=== PATIENT | female | born 1995 | race African-American/Black ===

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

== ENCOUNTER 2017-05-15 08:02 | Emergency (ER) | payer MEDICAID ==
[~2017-05-15] VITALS: Ht 160 cm; Wt 68.0 kg
[~2017-05-15 08:02] MED LIST changes: +PRD10T PO; +SULF1TAB35 PO
--- OUTSIDE RECORDS SUMMARY | 2017-05-15 08:09 | XMS REPORT ---
Author Author HYUN SOLIS [facility] Address [address] [place] [address] Care Team Providers Care Yarn Comber Name Role Phone HYUN SOLIS Unavailable PROBLEMS Type Condition ICD9-CM Code VFN05-AC Code Onset Dates Condition Status SNOMED Code Problem Acute non intractable tension-type headache G44.209 Active 565231344 Problem Encounter for initial prescription of injectable contraceptive Z30.013 Active 154563822 Problem Bipolar disorder, unspecified 296.80 Active 40238638 Problem ODD (oppositional defiant disorder) F91.3 Active 21484166 Problem Attention deficit disorder with hyperactivity F90.9 Active 997486365 ALLERGIES No Known Allergies SOCIAL HISTORY No smoking Hx information available PLAN OF CARE VITAL SIGNS MEDICATIONS No Known Medications RESULTS Name Result Date Reference Range TEST, URINE (IN HOUSE) 2016-06-17 RESULTS NEGATIVE Lot # [id number] Control + Exp date 2017-10-18 PROCEDURES Procedure Date Ordered Related Diagnosis Body Site URINE TEST Jun 17, 2016 DEPO PROVERA (150 MG/ML) Jun 17, 2016 THER/PROPH/DIAG INJ, SC/IM Jun 17, 2016 IMMUNIZATIONS Vaccine Route Administration Date Status DEPO PROVERA (150 MG/ML) IM Intramuscular Jun 17, 2016 Administered
--- OUTSIDE RECORDS SUMMARY | 2017-05-15 08:09 | XMS REPORT ---
Author Author HYUN SOLIS [facility] Address [address] [place] [address] Care Team Providers Care Control Clerk Auditing Name Role Phone HYUN SOLIS Unavailable PROBLEMS Type Condition ICD9-CM Code YBC54-PR Code Onset Dates Condition Status SNOMED Code Problem Infection of right ear H66.91 Active 3168157732074651 Problem Acute non intractable tension-type headache G44.209 Active 748825165 Problem Attention deficit disorder with hyperactivity F90.9 Active 752259847 Problem Bipolar disorder, unspecified 296.80 Active 60233510 Problem Encounter for initial prescription of injectable contraceptive Z30.013 Active 357734034 Problem ODD (oppositional defiant disorder) F91.3 Active 39747310 ALLERGIES No Information SOCIAL HISTORY Never Assessed PLAN OF CARE VITAL SIGNS MEDICATIONS No Known Medications RESULTS No Results PROCEDURES No Known procedures IMMUNIZATIONS No Known Immunizations MEDICAL (GENERAL) HISTORY Type Description Date Medical History attention deficit hyperactivity disorder Medical History bicuspid aortic valve Medical History schizophrenia Medical History dysmenorrhea
--- OUTSIDE RECORDS SUMMARY | 2017-05-15 08:09 | XMS REPORT ---
Author Author HYUN SOLIS [facility] Address [address] [place] [address] Care Team Providers Care Criminal Court Judge Name Role Phone HYUN SOLIS Unavailable PROBLEMS Type Condition ICD9-CM Code VSY22-PD Code Onset Dates Condition Status SNOMED Code Problem Acute non intractable tension-type headache G44.209 Active 969399967 Problem Encounter for initial prescription of injectable contraceptive Z30.013 Active 703282885 Problem Bipolar disorder, unspecified 296.80 Active 90082895 Problem Attention deficit disorder with hyperactivity F90.9 Active 192624639 Problem ODD (oppositional defiant disorder) F91.3 Active 99704595 ALLERGIES Substance Reaction Event Type Date Status Penicillin V Potassium Unknown Drug Allergy Apr, Active SOCIAL HISTORY No smoking Hx information available PLAN OF CARE Activity Details Follow Up 6 Months Reason:WWE VITAL SIGNS Height 63.4 in 2016-04-20 Weight 126.0 lbs 2016-04-20 Temperature 98.1 degrees Fahrenheit 2016-04-20 Heart Rate 78 bpm 2016-04-20 Respiratory Rate 20 2016-04-20 BMI 22.04 kg/m2 2016-04-20 Blood pressure systolic 118 mmHg 2016-04-20 Blood pressure diastolic 78 mmHg 2016-04-20 MEDICATIONS Medication Instructions Dosage Frequency Start Date End Date Duration Status Depo-Provera 150 MG/ML 1 ml Active RESULTS No Results PROCEDURES Procedure Date Ordered Related Diagnosis Body Site Office Visit, Est Pt., Level 4 Apr 20, 2016 IMMUNIZATIONS No Known Immunizations
--- OUTSIDE RECORDS SUMMARY | 2017-05-15 08:10 | XMS REPORT ---
Author Author OMAYRA HIGUERA Organization [facility] Address [address] [place] [address] Care Team Providers Care Bathing Suit Maker Name Role Phone OMAYRA HIGUERA Unavailable PROBLEMS Type Condition ICD9-CM Code KCW86-WV Code Onset Dates Condition Status SNOMED Code Problem Acute non intractable tension-type headache G44.209 Active 772404792 Problem Encounter for initial prescription of injectable contraceptive Z30.013 Active 150082425 Problem Bipolar disorder, unspecified 296.80 Active 44379315 Problem ODD (oppositional defiant disorder) F91.3 Active 81938631 Problem Attention deficit disorder with hyperactivity F90.9 Active 895457375 ALLERGIES Substance Reaction Event Type Date Status Penicillin V Potassium Unknown Drug Allergy Jul, Active SOCIAL HISTORY Never Assessed PLAN OF CARE Activity Details Follow Up prn Reason: VITAL SIGNS Height 63.4 in 2016-08-07 Weight 130.2 lbs 2016-08-07 Temperature 101.3 degrees Fahrenheit 2016-08-07 Heart Rate 88 bpm 2016-08-07 Respiratory Rate 18 2016-08-07 BMI 22.77 kg/m2 2016-08-07 Blood pressure systolic 124 mmHg 2016-08-07 Blood pressure diastolic 76 mmHg 2016-08-07 MEDICATIONS Medication Instructions Dosage Frequency Start Date End Date Duration Status Azithromycin 250 MG Orally Once a day 2 tablets on the first day, then 1 tablet daily for 4 days 24h Jul, Jul, 5 day(s) Active Depo-Provera 150 MG/ML 1 ml Active RESULTS Name Result Date Reference Range STREP A (IN HOUSE) 2016-08-07 STREP A positive Control + Lot # [id number] Exp date feb 05 PROCEDURES Procedure Date Ordered Result Body Site STREP A ASSAY W/OPTIC August 07, 2016 IMMUNIZATIONS No Known Immunizations MEDICAL (GENERAL) HISTORY Type Description Date Medical History attention deficit hyperactivity disorder Medical History bicuspid aortic valve Medical History schizophrenia Medical History dysmenorrhea
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
--- OUTSIDE RECORDS SUMMARY | 2017-05-15 08:10 | XMS REPORT ---
Author Author HYUN SOLIS [facility] Address [address] [place] [address] Care Team Providers Care Drilling Contractor Name Role Phone HYUN SOLIS Unavailable PROBLEMS Type Condition ICD9-CM Code QJC75-AE Code Onset Dates Condition Status SNOMED Code Problem Infection of right ear H66.91 Active 0142652350529148 Problem Acute non intractable tension-type headache G44.209 Active 789105339 Problem Attention deficit disorder with hyperactivity F90.9 Active 248055844 Problem Bipolar disorder, unspecified 296.80 Active 68031775 Problem Encounter for initial prescription of injectable contraceptive Z30.013 Active 544485516 Problem ODD (oppositional defiant disorder) F91.3 Active 59215502 ALLERGIES Substance Reaction Event Type Date Status Penicillin V Potassium Unknown Drug Allergy September, Active SOCIAL HISTORY Never Assessed PLAN OF CARE Activity Details Follow Up urology consult Reason: Pending Test UA LONG DIP (IN HOUSE) VITAL SIGNS Height 63.4 in 2016-10-05 Weight 137.2 lbs 2016-10-05 Temperature 98.4 degrees Fahrenheit 2016-10-05 Heart Rate 80 bpm 2016-10-05 Respiratory Rate 18 2016-10-05 BMI 24.00 kg/m2 2016-10-05 Blood pressure systolic 112 mmHg 2016-10-05 Blood pressure diastolic 77 mmHg 2016-10-05 MEDICATIONS Medication Instructions Dosage Frequency Start Date End Date Duration Status Depo-Provera 150 MG/ML 1 ml Active RESULTS No Results PROCEDURES Procedure Date Ordered Result Body Site URINALYSIS, AUTO, W/O SCOPE October 05, 2016 IMMUNIZATIONS No Known Immunizations MEDICAL (GENERAL) HISTORY Type Description Date Medical History attention deficit hyperactivity disorder Medical History bicuspid aortic valve Medical History schizophrenia Medical History dysmenorrhea
[2017-05-15] MEDS ORDERED: METH4TAB PO (08:19)
[2017-05-15] MEDS ORDERED: FLUT9.9S NS (08:19)
[2017-05-15] MEDS ORDERED: CEFD300C3 PO (08:19)
[2017-05-15] MEDS ORDERED: LORA1TAB59 PO (08:19)
--- NOTE | 2017-05-15 08:19 | ED EENT ---
History of Present Illness General Chief Complaint: Ear Problems Stated Complaint: L EAR PAIN Nursing Triage Note: pt reports cough/congestion x 6 days. she states that today she is having L EAR PAIN. PT IS AFEBRILE. Source: patient History of Present Illness Time seen by provider: 08:10 Initial Comments C/O COLD SYMPTOMS FOR OVER A WEEK HAS HAD MILD BILATERAL EAR PAIN, BUT THIS AM, LEFT EAR PAIN WAS SEVERE ON WAKING AN HOUR AGO NO FEVER COLD SYMPTOMS NOT IMPROVED WITH MUCINEX TOOK TYLENOL AN HOUR AGO, AND IT HELPED WITH RIGHT EAR PAIN, BUT NOT LEFT EAR PAIN SEEN AT [facility] 4 DAYS AGO FOR THESE SYMPTOMS--NO RX PCP:[facility] Allergies and Home Medications Allergies Coded Allergies: Penicillins (Unverified Adverse Reaction, Mild, RASH, VOMITING, 11/28/09) Home Medications Cefdinir 300 Mg Capsule, 300 MG PO BID, #20 Prescribed by: MONY MILLER on 05/15/17818 Fluticasone Propionate 9.9 Ml [place].susp, 2 SPRAYS NS BID, #1 Prescribed by: MONY MILLER on 05/15/17818 Guanfacine Hcl 3 Mg Tab.sr.24h, 3 PO DAILY, (Reported) Ibuprofen 800 Mg Tab, 600 MG PO Q8HR PRN, #30 Prescribed by: GIANNA AKHTAR on 05/30/121822 Lisdexamfetamine Dimesylate 70 Mg Capsule, 70 PO DAILY, (Reported) Loratadine/Pseudoephedrine 1 Each Tab.er.12h, 1 EACH PO BID, #30 Prescribed by: MONY MILLER on 05/15/17818 Methylprednisolone 4 Mg Tab.ds.pk, 4 MG PO UD, #1 Prescribed by: MONY MILLER on 05/15/17818 Prednisone 10 Mg Tab, 40 MG PO DAILY, #12 Prescribed by: MONY MILLER on 10/20/1647 Sulfamethoxazole/Trimethoprim 1 Each Tablet, 1 EACH PO BID, #20 Prescribed by: MONY MILLER on 10/20/16 004 [Trinessa] , DAILY, (Reported) Review of Systems Constitutional: no symptoms reported, No fever Eyes: No Symptoms Reported Ears: See HPI, Denies Dizziness, Pain Nose: see HPI, congestion, clear discharge Mouth: no symptoms reported Throat: no symptoms reported Respiratory: see HPI, cough, No short of breath, No wheezing Cardiovascular: no symptoms reported Gastrointestinal: no symptoms reported : No (LMP--UNKNOWN, WAS ON DEPO-PROVERA, AND PERIODS WERE RARE--HAS BEEN OFF IT FOR 1 1/2 YEARS,BUT PERIODS NEVER WENT BACK TO NORMAL. PT IS NOW ON NUVARING) Musculoskeletal: no symptoms reported Skin: no symptoms reported Neurological: No Symptoms Reported Hematologic/Lymphatic: No Symptoms Reported Immunological/Allergic: no symptoms reported Past Arffjlc-Hqgcvi-Hvuifm Hx Patient Social History Alcohol Use: Denies Use Recreational Drug Use: No Smoking Status: Never a Smoker 2nd Hand Smoke Exposure: No Recent Foreign Travel: No Contact w/Someone Who Travel: No Recent Infectious Disease Expo: No Recent Hopitalizations: No Immunizations Up To Date Tetanus Booster (TDap): Less than 5yrs PED Vaccines UTD: Yes Seasonal Allergies Seasonal Allergies: No Surgeries History of Surgeries: No Respiratory History of Respiratory Disorde: No Cardiovascular History of Cardiac Disorders: No Neurological History of Neurological Disord: No Genitourinary History of Genitourinary Disor: No Gastrointestinal History of Gastrointestinal Di: No Musculoskeletal History of Musculoskeletal Dis: No Endocrine History of Endocrine Disorders: No HEENT History of HEENT Disorders: No Cancer History of Cancer: No Psychosocial History of Psychiatric Problem: Yes Behavioral Health Disorders: ADD/ADHD, Anxiety, Bipolar, Depression Integumentary History of Skin or Integumenta: No Blood Transfusions History of Blood Disorders: No Physical Exam Vital Signs Vital Sign - Last 12Hours 05/15/17 08:06 Temp 98.1 Pulse 78 Resp 16 B/P (MAP) 118/74 (89) Pulse Ox 99 O2 Delivery Room Air General Appearance: WD/WN, no apparent distress, other (WEARING A WIG--PINK AND BLACK. DOES NOT APPEAR TO BE ILL OR IN ANY DISCOMFORT AT THIS TIME. ) Eyes: bilateral eye normal inspection, bilateral eye PERRL, bilateral eye EOMI Ears: right ear TM normal, left ear erythema, left ear TM dull, left ear TM red , bilateral ear canal normal Nose: No sinus tenderness, other (NASAL CONGESTION AND CLEAR POST NASAL DRAINAGE) Mouth/Throat: normal mouth inspection, pharynx normal Neck: non-tender, full range of motion, supple, normal inspection, No lymphadenopathy (R), No lymphadenopathy (L) Cardiovascular: regular rate, rhythm, no murmur Respiratory: normal breath sounds, no respiratory distress, no accessory muscle use Neurologic/Psychiatric: director banking II-XII nml as tested, no motor/sensory deficits, alert, normal mood/affect, oriented x 3 Skin: normal color, warm/dry Progress/Results/Core Measures Results/Orders Vital Signs/I&O Vital Sign - Last 12Hours 05/15/17 05/15/17 08:06 08:26 Temp 98.1 98.1 Pulse 78 78 Resp 16 16 B/P (MAP) 118/74 (89) Pulse Ox 99 99 O2 Delivery Room Air Blood Pressure Mean: 89 Departure Impression Impression: Primary Impression: Upper respiratory infection Additional Impression: Left otitis media Disposition: HOME, SELF-CARE Condition: Stable Departure-Patient Inst. Referrals: [facility]Н (PCP) Primary Care Physician HYUN SOLIS (Family) Primary Care Physician Patient Instructions: Bacterial Upper Respiratory Infection, Adult (DC), Ear Infections (Otitis Media) (DC) Add. Discharge Instructions: TYLENOL AND MOTRIN NEEDED FOR PAIN OR FEVER LOTS OF CLEAR LIQUIDS FOLLOW UP WITH [facility] IN 3-4 DAYS IF NO BETTER All discharge instructions reviewed with patient and/or family. Voiced understanding. Scripts Methylprednisolone (Medrol) 4 Mg Tab.ds.pk 4 MG PO UD, #1 PKG Prov: MONY MILLER DO 05/15/17 Fluticasone Propionate (Flonase Allergy Relief) 9.9 Ml [place].susp 2 SPRAYS NS BID, #1 SPRAY Prov: MONY MILLER DO 05/15/17 Loratadine/Pseudoephedrine (Claritin-D 12 Hour Tablet) 1 Each Tab.er.12h 1 EACH PO BID for Congestion, #30 TAB Prov: MONY MILLER DO 05/15/17 Cefdinir (Cefdinir) 300 Mg Capsule 300 MG PO BID for FOR INFECTION, #20 CAP Prov: MONY MILLER DO 05/15/17 MONY MILLER DO May 15, 2017 08:19
[2017-05-15 08:26] VITALS: BP 118/74
== END 2017-05-15 08:26 | disposition home or self-care (01) ==
LOC: EDUNIT# 08:02 → ER 08:04
DX: H66.92 Otitis media, unspecified, left ear (principal); J06.9 Acute upper respiratory infection, unspecified; F31.9 Bipolar disorder, unspecified; F41.9 Anxiety disorder, unspecified; F90.9 Attention-deficit hyperactivity disorder, unspecified type
CPT/HCPCS: 99282

== ENCOUNTER 2017-09-20 16:25 | Emergency (ER) | payer MEDICAID ==
[~2017-09-20] VITALS: Ht 160 cm; Wt 65.8 kg
[~2017-09-20 16:25] MED LIST changes: +CEFD300C3 PO; +FLUT9.9S NS; +LORA1TAB59 PO; +METH4TAB PO
--- OUTSIDE RECORDS SUMMARY | 2017-09-20 16:31 | XMS REPORT ---
Author Author OMAYAR HIGUERA [facility] Address [address] [place] [address] Care Team Providers Care Sap Payroll Consultant Name Role Phone KALEN OMAYRA Unavailable PROBLEMS Type Condition ICD9-CM Code DRT47-QE Code Onset Dates Condition Status SNOMED Code Problem Infection of right ear H66.91 Active 6161605322216428 Problem Acute non intractable tension-type headache G44.209 Active 695410638 Problem Attention deficit disorder with hyperactivity F90.9 Active 954654113 Problem Bipolar disorder, unspecified 296.80 Active 74670647 Problem Encounter for initial prescription of injectable contraceptive Z30.013 Active 273918089 Problem ODD (oppositional defiant disorder) F91.3 Active 61792191 ALLERGIES Substance Reaction Event Type Date Status Penicillin V Potassium Unknown Drug Allergy Nov, Active ENCOUNTERS Encounter Location Date Diagnosis [facility] [id number] [place] [address] Jul, Seasonal allergic rhinitis, unspecified trigger J30.2 [facility] [id number] [place] [address] Apr, Sore throat J02.9 and Acute nasopharyngitis J00 [facility] [id number] [place] [address]90- 2655 Apr, [facility] [id number] [place] [address] 97236[address] 4104 Mar, control counseling Z30.09 [facility] [address] [address] Feb, Infection of right ear H66.91 ; Vaginal discharge N89.8 and Sore throat J02.9 [facility] [id number] [place] [address] Feb, Encounter for Depo-Provera contraception Z30.42 ; Sore throat J02.9 ; Acute allergic rhinitis J30.9 and Acute nasopharyngitis (common cold) J00 [facility] [place] [id number] [place] [address] Dec, Other viral agents as the cause of diseases classified elsewhere B97.89 and Acute upper respiratory infection, unspecified J06.9 [place] [address] [address] Dec, Vaginal discharge N89.8 [place] [address] [address] Dec, Routine gynecological examination Z01.419 ; Encounter for counseling regarding contraception Z30.09 and Vaginal discharge N89.8 [facility] IN [place] [address] [address] Nov, Encounter for Depo-Provera contraception Z30.42 and Viral gastroenteritis A08.4 [facility] [place] [id number] [place] [address] Nov, Acute nonintractable headache, unspecified headache type R51 and Acute seasonal allergic rhinitis, unspecified trigger J30.2 [facility] IN [place] [id number] [place] [address] September, Acute non intractable tension-type headache G44.209 [place] [id number] [place] [address] September, Urinary frequency R35.0 [place] [address] [address] September, [place] [address] [address] Aug, Urinary frequency R35.0 and Encounter for Depo-Provera contraception Z30.42 [facility] [place] [address] [address] Jul, Sore throat J02.9 and Strep pharyngitis J02.0 [facility] [id number] [place] [address] May, Encounter for Depo-Provera contraception Z30.42 [facility] [id number] [place] [address] 36255- 2852 Apr, General medical exam Z00.00 and Surveillance for Depo- Provera contraception Z30.42 [facility] [id number] [place] [address]95- 0642 Mar, Attention deficit disorder with hyperactivity F90.9 [facility] [id number] [place] [address] Feb, Encounter for Depo-Provera contraception Z30.42 [facility] [id number] [place] [address] 32834- 2088 Feb, [facility] [id number] [place] [address] Jan, Sore throat J02.9 [facility] [id number] [place] [address] 33851- 0690 Jan, [facility] [id number] [place] [address] 58901- 5829 Dec, [facility] [id number] [place] [address] 99226- 3546 Dec, Encounter for Depo-Provera contraception Z30.42 [facility] [id number] [place] [address] 23250- 3598 Nov, Recent urinary tract infection Z87.440 and Urinary frequency R35.0 [facility] [id number] [place] [address] 82340- 9411 Nov, [facility] [id number] [place] [address] 46296- 6854 Oct, [facility] [id number] [place] [address] 40012[address] 8[address] September, Attention deficit disorder with hyperactivity F90.9 and ODD (oppositional defiant disorder) F91.3 [place] [id number] [place] [address] 96565- 3811 September, Routine gynecological examination Z01.419 ; Encounter for counseling regarding contraception Z30.9 ; Encounter for initial prescription of injectable contraceptive Z30.013 and Encounter for Depo-Provera contraception Z30.42 [facility] [place] [id number] [place] [address] Aug, Migraine without aura and without status migrainosus, not intractable G43.009 [facility] [place] [id number] [place] [address]67[address] Aug, Sore throat J02.9 and Acute streptococcal pharyngitis J02.0 [facility] [place] [id number] [place] [address] 65632 -5513 Aug, Acute upper respiratory infection, unspecified J06.9 [place] [id number] [place] [address] 23489- 0821 Jun, [facility] [place] [id number] [place] [address]9915 [address] Jun, Sore throat J02.9 [place] [id number] [place] [address] 45041- 2241 May, [place] [id number] [place] [address] 69880- 4451 May, [place] [address] [address] Apr, [place] [id number] [place] [address] 82381- 6842 Mar, [place] [address] 85783- 6517 Mar, Attention deficit disorder with hyperactivity F90.9 and ODD (oppositional defiant disorder) F91.3 [facility] [id number] [place] [address] 52245- 8213 Mar, [facility] [id number] [place] [address] 32344- 0430 Feb, [facility] [id number] [place] [address] 61342- 4143 Jan, [facility] [id number] [place] [address] 12471- 3787 Jan, Bipolar disorder, unspecified 296.80 ; Attention deficit disorder with hyperactivity 314.01 and Parent-child conflict V61.20 [place] [id number] [place] [address] 30310- 4457 Dec, [facility] [id number] [place] [address] 37273- 2394 Dec, Routine child health exam V20.2 ; Dietary counseling and surveillance V65.3 ; Exercise counseling V65.41 ; Contraception management V25.9 and HEP A (ADULT) DX V05.3 [place] [id number] [place] [address]16- 9839 Nov, Oppositional defiant disorder 313.81 ; Bipolar disorder, unspecified 296.80 ; Anxiety state, unspecified 300.00 ; Parent-child conflict V61.20 and Attention deficit disorder with hyperactivity 314.01 [facility] [id number] [place] [address] 16140- 6421 Oct, [facility] [id number] [place] [address] 47316- 7009 Oct, [facility] [id number] [place] [address] 81702- 5126 Oct, [facility] [id number] [place] [address] 16150- 5359 September, [facility] [address] [id number] [place] [address] 139[address] September, [facility] [place] [facility] [address] [id number] [place] [address]- 5896 September, [facility] [place] [facility] [address] [id number] [place] [address]- 7292 Aug, [facility] [place] [facility] [address] [id number] [place] [address]- 2267 Aug, [facility] [place] [facility] [address] [id number] [place] [address]- 9792 Jul, [facility] [place] [facility] [address] [id number] [place] [address]- 6552 Jul, [facility] [place] [facility] [address] [id number] [place] [address]- 8723 Jul, [facility] [place] [facility] [address] [id number] [place] [address]- 6120 Jul, [facility] [place] [facility] [address] [id number] [place] [address]- 9737 Jun, [facility] [place] [facility] [address] [id number] [place] [address]- 2618 Jun, [facility] [place] [facility] [address] [id number] [place] [address]- 9168 May, [facility] [place] [facility] [address] [id number] [place] [address]- 7643 May, [facility] [place] [facility] [address] [id number] [place] [address]- 0344 May, [facility] [place] [facility] [address] [id number] [place] [address]- 1175 May, [facility] [place] [facility] [address] [id number] [place] [address]- 5019 May, [facility] [place] [facility] [address] [id number] [place] [address]- 1640 May, [facility] [place] [facility] [address] [id number] [place] [address]- 1737 May, [facility] [place] [facility] [address] [id number] [place] [address]- 4447 May, [facility] [place] [facility] [address] [id number] [place] [address]- 0201 Mar, [facility] [place] [facility] [address] [id number] [place] [address]- 2681 Mar, [facility] [place] [facility] [address] [id number] [place] [address]- 8124 Feb, [facility] [place] [facility] [address] [id number] [place] [address]- 0595 Feb, [facility] [place] [facility] [address] [id number] [place] [address]- 3048 Jan, [facility] [place] [facility] [address] [id number] [place] [address]- 6408 Jan, [facility] [place] [facility] [address] [id number] [place] [address]- 1066 Nov, [facility] [place] [facility] [address] [id number] [place] [address]- 8389 Nov, [facility] [place] [facility] [address] [id number] [place] [address]- 2073 Nov, [facility] [place] [facility] [address] [id number] [place] [address]- 8720 Nov, [facility] [place] [facility] [address] [id number] [place] [address]- 3519 September, [facility] [place] [facility] [address] [id number] [place] [address] September, [facility] [place] [facility] [address] [id number] [place] [address] Apr, [facility] [place] [facility] [id number] [address] 16 Apr, 2013 [facility] [address] [place] [address] Feb, [facility] [address] [place] [address]- 5344 Feb, [facility] [address] [place] [address]- 3903 Oct, [facility] [address] [place] [address]- 5293 September, [facility] [address] [place] [address]- 9734 September, [facility] [address] [place] [address]- 57[address] Aug, [facility] [address] [place] [address]- 1282 September, [facility] [address] [place] [address]- 8256 Aug, [facility] [address] [place] [address]- 3984 Aug, [facility] [id number] [address]- [address] Aug, [facility] [id number] [address] 2069 Jul, [facility] [id number] [address] 1227 Aug, [facility] [id number] [address] 8086 Jul, IMMUNIZATIONS Vaccine Route Administration Date Status DEPO PROVERA (150 MG/ML) IM Intramuscular December 02, 2016 Administered SOCIAL HISTORY Never Assessed REASON FOR VISIT vomiting/depo shot JStrasserRN PLAN OF CARE Activity Details Follow Up prn Reason: VITAL SIGNS Height 63.4 in 2016-12-02 Weight 140.0 lbs 2016-12-02 Temperature 98.7 degrees Fahrenheit 2016-12-02 Heart Rate 66 bpm 2016-12-02 Respiratory Rate 20 2016-12-02 BMI 24.49 kg/m2 2016-12-02 Blood pressure systolic 100 mmHg 2016-12-02 Blood pressure diastolic 68 mmHg 2016-12-02 MEDICATIONS Medication Instructions Dosage Frequency Start Date End Date Duration Status Flonase 50 MCG/ACT Nasally Once a day 1 spray in each nostril 24h Nov, 30 day(s) Active Depo-Provera 150 MG/ML 1 ml Active Zyrtec Allergy 10 MG Orally Once a day 1 tablet 24h Nov, Dec, 30 day(s) Active Zofran ODT 4 MG Orally every 8 hrs 1 tablet on the tongue and allow to dissolve 8h Nov, 30 day(s) Active RESULTS Name Result Date Reference Range TEST, URINE (IN HOUSE) 2016-12-02 RESULTS negative Lot # [id number] Control + Exp date 2018-03-20 PROCEDURES Procedure Date Ordered Result Body Site URINE TEST December 02, 2016 DEPO PROVERA (150 MG/ML) December 02, 2016 THER/PROPH/DIAG INJ, SC/IM December 02, 2016 INSTRUCTIONS MEDICATIONS ADMINISTERED No Known Medications MEDICAL (GENERAL) HISTORY Type Description Date Medical History attention deficit hyperactivity disorder Medical History bicuspid aortic valve Medical History schizophrenia Medical History dysmenorrhea
--- OUTSIDE RECORDS SUMMARY | 2017-09-20 16:32 | XMS REPORT ---
Author Author HYUN SOLIS [facility] Address [address] [place] [address] Care Team Providers Care Ribbon Lap Machine Tender Name Role Phone IRMA HYUN Unavailable PROBLEMS Type Condition ICD9-CM Code NFX10-YE Code Onset Dates Condition Status SNOMED Code Problem Infection of right ear H66.91 Active 3440606426054261 Problem Acute non intractable tension-type headache G44.209 Active 165883999 Problem Attention deficit disorder with hyperactivity F90.9 Active 150134229 Problem Bipolar disorder, unspecified 296.80 Active 92033680 Problem Encounter for initial prescription of injectable contraceptive Z30.013 Active 938146446 Problem ODD (oppositional defiant disorder) F91.3 Active 22498429 ALLERGIES No Information ENCOUNTERS Encounter Location Date Diagnosis [facility] [id number] [place] [address] Jul, Seasonal allergic rhinitis, unspecified trigger J30.2 [facility] [id number] [place] [address]18 [address]5870 Apr, Sore throat J02.9 and Acute nasopharyngitis J00 [facility] [id number] [place] [address] 76033- 1513 Apr, [facility] [id number] [place] [address] 96387- 0531 Mar, control counseling Z30.09 [facility] [address] [address] Feb, Infection of right ear H66.91 ; Vaginal discharge N89.8 and Sore throat J02.9 [facility] [id number] [place] [address]16 [address]25 Feb, Encounter for Depo-Provera contraception Z30.42 ; Sore throat J02.9 ; Acute allergic rhinitis J30.9 and Acute nasopharyngitis (common cold) J00 [facility] [place] [address] [address] Dec, Other viral agents as the cause of diseases classified elsewhere B97.89 and Acute upper respiratory infection, unspecified J06.9 [place] [address] [address] Dec, Vaginal discharge N89.8 [place] [address] [address]861 16 Dec, 2016 Routine gynecological examination Z01.419 ; Encounter for counseling regarding contraception Z30.09 and Vaginal discharge N89.8 [facility] [address] [address] 15 Nov, 2016 Encounter for Depo-Provera contraception Z30.42 and Viral gastroenteritis A08.4 [facility] [address] [address] Nov, Acute nonintractable headache, unspecified headache type R51 and Acute seasonal allergic rhinitis, unspecified trigger J30.2 [facility] [address] [address] September, Acute non intractable tension-type headache G44.209 [place] [address] [address] September, Urinary frequency R35.0 [place] [address] [address] 65[address] September, [address] [address] Aug, Urinary frequency R35.0 and Encounter for Depo-Provera contraception Z30.42 [facility] [address] [address] Jul, Sore throat J02.9 and Strep pharyngitis J02.[address] [facility] [id number] [place] [address]98 [address] May, Encounter for Depo-Provera contraception Z30.42 [facility] [id number] [place] [address] 12282- 1258 Apr, General medical exam Z00.00 and Surveillance for Depo- Provera contraception Z30.42 [facility] [id number] [place] [address] 71904- 2898 Mar, Attention deficit disorder with hyperactivity F90.9 [facility] [id number] [place] [address] Feb, Encounter for Depo-Provera contraception Z30.42 [facility] [id number] [place] [address]88- 1030 Feb, [facility] [id number] [place] [address]10 [address] Jan, Sore throat J02.9 [facility] [id number] [place] [address]- 7[address] Jan, [facility] [id number] [place] [address] 40411- 5124 Dec, [facility] [id number] [place] [address] 74741- 7886 Dec, Encounter for Depo-Provera contraception Z30.42 [facility] [id number] [place] [address] 85493- 8448 Nov, Recent urinary tract infection Z87.440 and Urinary frequency R35.0 [facility] [id number] [place] [address] 45994- 0094 Nov, [facility] [id number] [place] [address] 19365- 9701 Oct, [facility] [id number] [place] [address] 45711- 5338 September, Attention deficit disorder with hyperactivity F90.9 and ODD (oppositional defiant disorder) F91.3 [place] [id number] [place] [address]9722- 5457 September, Routine gynecological examination Z01.419 ; Encounter for counseling regarding contraception Z30.9 ; Encounter for initial prescription of injectable contraceptive Z30.013 and Encounter for Depo-Provera contraception Z30.42 [facility] [place] [id number] [place] [address] 81015 -1448 13 Aug, 2015 Migraine without aura and without status migrainosus, not intractable G43.009 [facility] [place] [id number] [place] [address]461 [address]3098 Aug, Sore throat J02.9 and Acute streptococcal pharyngitis J02.0 [facility] [place] [id number] [place] [address] 89535 -8365 Aug, Acute upper respiratory infection, unspecified J06.9 [place] [id number] [place] [address] 48839- 9327 Jun, [facility] [place] [id number] [place] [address] 22359 [address]7487 Jun, Sore throat J02.9 [place] [id number] [place] [address] 76688- 8364 May, [place] [id number] [place] [address] 14352- 9244 May, [place] [address] [address] Apr, [place] [id number] [place] [address] 56203- 8785 Mar, [place] [id number] [place] [address] 20537- 9356 Mar, Attention deficit disorder with hyperactivity F90.9 and ODD (oppositional defiant disorder) F91.3 [facility] [id number] [place] [address] 89451- 6531 Mar, [facility] [id number] [place] [address] 82637- 8133 Feb, [facility] [id number] [place] [address] 28415- 1221 Jan, [facility] [id number] [place] [address] 48063- 9800 Jan, Bipolar disorder, unspecified 296.80 ; Attention deficit disorder with hyperactivity 314.01 and Parent-child conflict V61.20 [place] [id number] [place] [address] 23657- 1432 Dec, [place] [address] 90873- 2222 Dec, Routine child health exam V20.2 ; Dietary counseling and surveillance V65.3 ; Exercise counseling V65.41 ; Contraception management V25.9 and HEP A (ADULT) DX V05.3 [place] [id number] [place] [address] 08960- 5573 Nov, Oppositional defiant disorder 313.81 ; Bipolar disorder, unspecified 296.80 ; Anxiety state, unspecified 300.00 ; Parent-child conflict V61.20 and Attention deficit disorder with hyperactivity 314.01 [facility] [address] [place] [address] 99844- 7422 Oct, [facility] [id number] [place] [address] 08783- 0647 Oct, [facility] [id number] [place] [address] 93741- 8991 Oct, [facility] [id number] [place] [address] 36862- 5892 September, [facility] [address] [place] [address]- 3651 September, [facility] [place] [facility] [address] [id number] [place] [address]- 2078 September, [facility] [place] [facility] [address] [id number] [place] [address]- 7252 Aug, [facility] [place] [facility] [address] [id number] [place] [address]- 3151 Aug, [facility] [place] [facility] [address] [id number] [place] [address]- 4566 Jul, [facility] [place] [facility] [address] [id number] [place] [address]- 0429 Jul, [facility] [place] [facility] [address] [id number] [place] [address]- 5012 Jul, [facility] [place] [facility] [address] [id number] [place] [address]- 5500 Jul, [facility] [place] [facility] [address] [id number] [place] [address]- 8888 Jun, [facility] [place] [facility] [address] [id number] [place] [address]- 5443 Jun, [facility] [place] [facility] [address] [id number] [place] [address]- 1754 May, [facility] [place] [facility] [address] [id number] [place] [address]- 1817 May, [facility] [place] [facility] [address] [id number] [place] [address]- 3676 May, [facility] [place] [facility] [address] [id number] [place] [address]- 7974 May, [facility] [place] [facility] [address] [id number] [place] [address]- 9562 May, [facility] [place] [facility] [address] [id number] [place] [address]- 8826 May, [facility] [place] [facility] [address] [id number] [place] [address]- 5985 May, [facility] [place] [facility] [address] [id number] [place] [address]- 0125 May, [facility] [place] [facility] [address] [id number] [place] [address]- 1323 Mar, [facility] [place] [facility] [address] [id number] [place] [address]- 8381 Mar, [facility] [place] [facility] [address] [id number] [place] [address]- 0466 Feb, [facility] [place] [facility] [address] [id number] [place] [address]- 3802 Feb, [facility] [place] [facility] [address] [id number] [place] [address]- 6205 Jan, [facility] [place] [facility] [address] [id number] [place] [address]- 0994 Jan, [facility] [place] [facility] [address] [id number] [place] [address]- 7265 Nov, [facility] [place] [facility] [address] [id number] [place] [address]- 6558 Nov, [facility] [place] [facility] [address] [id number] [place] [address]- 9761 Nov, [facility] [place] [facility] [address] [id number] [place] [address]- 1743 Nov, [facility] [place] [facility] [address] [id number] [place] [address]- 7443 September, [facility] [place] [facility] [address] [id number] [place] [address]- 5214 September, [facility] [place] [facility] [address] [id number] [place] [address]- 3284 Apr, [facility] [place] [facility] [address] [id number] [address]- 9276 Apr, [facility] [id number] [address]- 0965 Feb, [facility] [id number] [address]- 7166 Feb, [facility] [id number] [address]- 2515 Oct, [facility] [id number] [address]- 2075 September, [facility] [id number] [address]- 2995 September, [facility] [id number] [address]- 5298 Aug, [facility] [id number] [address]- 9556 September, [facility] [id number] [address]- 0571 Aug, [facility] [id number]126 Aug, [facility] [id number] [address]- 8107 Aug, [facility] [id number] [address] Jul, [facility] [id number] [address]- 4339 Aug, [facility] [id number] [address]- 2644 Jul, IMMUNIZATIONS No Known Immunizations SOCIAL HISTORY Never Assessed REASON FOR VISIT Yeast Infection Medication PLAN OF CARE VITAL SIGNS MEDICATIONS Medication Instructions Dosage Frequency Start Date End Date Duration Status Diflucan 150 MG Orally Once a day 1 tablet 24h Dec, 1 dose Active RESULTS No Results PROCEDURES No Known procedures INSTRUCTIONS MEDICATIONS ADMINISTERED No Known Medications MEDICAL (GENERAL) HISTORY Type Description Date Medical History attention deficit hyperactivity disorder Medical History bicuspid aortic valve Medical History schizophrenia Medical History dysmenorrhea
--- OUTSIDE RECORDS SUMMARY | 2017-09-20 16:32 | XMS REPORT ---
Author Author BRITTNEY SANTACRUZ Organization [facility] Address [address] [place] [address] Care Team Providers Care Central Office Supervisor Name Role Phone BRITTNEY SANTACRUZ Unavailable PROBLEMS Type Condition ICD9-CM Code CLH92-IX Code Onset Dates Condition Status SNOMED Code Problem Infection of right ear H66.91 Active 8973615092124332 Problem Acute non intractable tension-type headache G44.209 Active 145727885 Problem Attention deficit disorder with hyperactivity F90.9 Active 243316845 Problem Bipolar disorder, unspecified 296.80 Active 59384433 Problem Encounter for initial prescription of injectable contraceptive Z30.013 Active 794917004 Problem ODD (oppositional defiant disorder) F91.3 Active [id number] ALLERGIES Substance Reaction Event Type Date Status Penicillin V Potassium Unknown Drug Allergy Dec, Active ENCOUNTERS Encounter Location Date Diagnosis [facility] [id number] [place] [address]773 -5975 Jul, Seasonal allergic rhinitis, unspecified trigger J30.2 [facility] [id number] [place] [address] 91472 -5167 Apr, Sore throat J02.9 and Acute nasopharyngitis J00 [facility] [address] [place] [id number] [place] [address] 39192- 5722 Apr, [facility] [address] [place] [id number] [place] [address] 98137- 5379 Mar, control counseling Z30.09 [facility] [id number] [place] [address] 44484 -0689 Feb, Infection of right ear H66.91 ; Vaginal discharge N89.8 and Sore throat J02.9 [facility] [id number] [place] [address]88 -7038 Feb, Encounter for Depo-Provera contraception Z30.42 ; Sore throat J02.9 ; Acute allergic rhinitis J30.9 and Acute nasopharyngitis (common cold) J00 [facility] [place] [id number] [place] [address] 48186 -1312 Dec, Other viral agents as the cause of diseases classified elsewhere B97.89 and Acute upper respiratory infection, unspecified J06.9 [place] [address] [address]67- 3998 Dec, Vaginal discharge N89.8 [place] [address] 30536- 0778 16 Dec, 2016 Routine gynecological examination Z01.419 ; Encounter for counseling regarding contraception Z30.09 and Vaginal discharge N89.8 [facility] IN [place] [address] 41048 -8964 Nov, Encounter for Depo-Provera contraception Z30.42 and Viral gastroenteritis A08.4 [facility] [place] [address] 99630 -0629 Nov, Acute nonintractable headache, unspecified headache type R51 and Acute seasonal allergic rhinitis, unspecified trigger J30.2 [facility] [place] [address] 44892 -1695 September, Acute non intractable tension-type headache G44.209 [place] [address] 28076- 1612 September, Urinary frequency R35.0 [place] [address] 74230- 6610 September, [place] [address] 16937- 6960 Aug, Urinary frequency R35.0 and Encounter for Depo-Provera contraception Z30.42 [facility] [place] [address] 00[address]4397 Jul, Sore throat J02.9 and Strep pharyngitis J02.0 [facility] [address] [place] [address] 79028 -8541 May, Encounter for Depo-Provera contraception Z30.42 [facility] [id number] [place] [address] 06424- 9055 Apr, General medical exam Z00.00 and Surveillance for Depo- Provera contraception Z30.42 [facility] [id number] [place] [address] 07064- 0717 Mar, Attention deficit disorder with hyperactivity F90.9 [facility] [id number] [place] [address] 37261 -8353 Feb, Encounter for Depo-Provera contraception Z30.42 [facility] [id number] [place] [address] 85453- 3454 Feb, [facility] [id number] [place] [address] 99668 -8707 Jan, Sore throat J02.9 [facility] [id number] [place] [address] 79163- 4112 Jan, [facility] [id number] [place] [address] 51573- 1408 Dec, [facility] [id number] [place] [address] 25160- 5600 Dec, Encounter for Depo-Provera contraception Z30.42 [facility] [address] [place] [address] 35093- 7008 Nov, Recent urinary tract infection Z87.440 and Urinary frequency R35.0 [facility] [address] [place] [address] 36015- 3539 Nov, [facility] [id number] [place] [address] 11177- 9642 Oct, [place] [address] [place] [address] 65763- 8571 September, Attention deficit disorder with hyperactivity F90.9 and ODD (oppositional defiant disorder) F91.3 [place] [id number] [place] [address] 81674- 3040 September, Routine gynecological examination Z01.419 ; Encounter for counseling regarding contraception Z30.9 ; Encounter for initial prescription of injectable contraceptive Z30.013 and Encounter for Depo-Provera contraception Z30.42 [facility] [place] [id number] [place] [address] 94928 -6955 Aug, Migraine without aura and without status migrainosus, not intractable G43.009 [facility] [place] [id number] [place] [address] 05312 -1358 Aug, Sore throat J02.9 and Acute streptococcal pharyngitis J02.0 [facility] [place] [id number] [place] [address] 43024 -6447 Aug, Acute upper respiratory infection, unspecified J06.9 [place] [id number] [place] [address] 71220- 5840 Jun, [facility] [place] [id number] [place] [address] 42812 -2808 Jun, Sore throat J02.9 [place] [id number] [place] [address] 38342- 3111 May, [place] [id number] [place] [address] 43326- 1298 May, [place] [address] 41363- 8290 Apr, [place] [id number] [place] [address] 48278- 0224 Mar, [place] [address] 47334- 4786 Mar, Attention deficit disorder with hyperactivity F90.9 and ODD (oppositional defiant disorder) F91.3 [facility] [id number] [place] [address] 66277- 5209 Mar, [facility] [id number] [place] [address] 41395- 3554 Feb, [facility] [id number] [place] [address] 05698- 3926 Jan, [facility] [id number] [place] [address] 05461- 7470 Jan, Bipolar disorder, unspecified 296.80 ; Attention deficit disorder with hyperactivity 314.01 and Parent-child conflict V61.20 [place] [id number] [place] [address] 16436- 7421 Dec, [place] [id number] [place] [address] 00498- 7992 Dec, Routine child health exam V20.2 ; Dietary counseling and surveillance V65.3 ; Exercise counseling V65.41 ; Contraception management V25.9 and HEP A (ADULT) DX V05.3 [place] [id number] [place] [address] 83068- 0284 Nov, Oppositional defiant disorder 313.81 ; Bipolar disorder, unspecified 296.80 ; Anxiety state, unspecified 300.00 ; Parent-child conflict V61.20 and Attention deficit disorder with hyperactivity 314.01 [facility] [address] [place] [address] 80309- 0777 Oct, [facility] [id number] [place] [address] 48231- 3517 Oct, [facility] [id number] [place] [address] 23883- 7275 Oct, [facility] [address] [place] [address] 29391- 1383 September, [facility] [id number] [address] September, [facility] [address] [id number] [place] [address]- 6688 September, [facility] [place] [facility] [address] [id number] [place] [address]- 0250 Aug, [facility] [place] [facility] [address] [id number] [place] [address]- 3088 Aug, [facility] [place] [facility] [address] [id number] [place] [address]- 8030 Jul, [facility] [place] [facility] [address] [id number] [place] [address]- 3831 Jul, [facility] [place] [facility] [address] [id number] [place] [address]- 0993 Jul, [facility] [place] [facility] [address] [id number] [place] [address]- 6729 Jul, [facility] [place] [facility] [address] [id number] [place] [address]- 6736 Jun, [facility] [place] [facility] [address] [id number] [place] [address]- 9018 Jun, [facility] [place] [facility] [address] [id number] [place] [address]- 5455 May, [facility] [place] [facility] [address] [id number] [place] [address]- 6526 May, [facility] [place] [facility] [address] [id number] [place] [address]- 0411 May, [facility] [place] [facility] [address] [id number] [place] [address]- 5554 May, [facility] [place] [facility] [address] [id number] [place] [address]- 9286 May, [facility] [place] [facility] [address] [id number] [place] [address]- 6160 May, [facility] [place] [facility] [address] [id number] [place] [address]- 3097 May, [facility] [place] [facility] [address] [id number] [place] [address]- 2534 May, [facility] [place] [facility] [address] [id number] [place] [address]- 7153 Mar, [facility] [place] [facility] [address] [id number] [place] [address]- 9892 Mar, [facility] [place] [facility] [address] [id number] [place] [address]- 9472 Feb, [facility] [place] [facility] [address] [id number] [place] [address]- 8964 Feb, [facility] [place] [facility] [address] [id number] [place] [address]- 9053 Jan, [facility] [place] [facility] [address] [id number] [place] [address]- 2658 Jan, [facility] [place] [facility] [address] [id number] [place] [address]- 5663 Nov, [facility] [place] [facility] [address] [id number] [place] [address]- 9608 Nov, [facility] [place] [facility] [address] [id number] [place] [address]- 2057 Nov, [facility] [place] [facility] [address] [id number] [address]- 6336 Nov, [facility] [place] [facility] [address] [id number] [place] [address]- 8813 September, [facility] [place] [facility] [address] [id number] [place] [address]- 3950 September, [facility] [place] [facility] [address] [id number] [place] [address]- 0546 Apr, [facility] [place] [facility] [id number] [address] 2546 Apr, [facility] [id number] [address]- 5466 Feb, [facility] [id number] [address]- 6806 Feb, [facility] [address] [address]- 3916 Oct, [facility] [address] [address]- 6530 September, [facility] [address] [address]- 6946 September, [facility] [address] [place] [address]- 0581 Aug, [facility] [address] [place] [address]- 8256 September, [facility] [address], [place] [address]- 5449 Aug, [facility] [address] [place] [address]- 7513 Aug, [facility] [id number] [address]- 6436 Aug, [facility] [id number] [address]- 4524 Jul, [facility] [id number] [address]- 5302 Aug, [facility] [id number] [address]- 7044 Jul, IMMUNIZATIONS No Known Immunizations SOCIAL HISTORY Never Assessed REASON FOR VISIT headache, head congestion, denies cough. just woke up like this this am. [email or web address] PLAN OF CARE VITAL SIGNS Height 63.4 in 2017-01-17 Weight 142.6 lbs 2017-01-17 Temperature 97.9 degrees Fahrenheit 2017-01-17 Heart Rate 82 bpm 2017-01-17 Respiratory Rate 20 2017-01-17 BMI 24.94 kg/m2 2017-01-17 Blood pressure systolic 118 mmHg 2017-01-17 Blood pressure diastolic 76 mmHg 2017-01-17 MEDICATIONS Medication Instructions Dosage Frequency Start Date End Date Duration Status Flonase 50 MCG/ACT Nasally Once a day 1 spray in each nostril 24h Nov, 30 day(s) Active PredniSONE 20 mg Orally Once a day 2 tablets 24h Dec, Jan, 05 days Active Depo-Provera 150 MG/ML 1 ml Active RESULTS No Results PROCEDURES No Known procedures INSTRUCTIONS MEDICATIONS ADMINISTERED No Known Medications MEDICAL (GENERAL) HISTORY Type Description Date Medical History attention deficit hyperactivity disorder Medical History bicuspid aortic valve Medical History schizophrenia Medical History dysmenorrhea
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
--- NOTE | 2017-09-20 17:12 | Diagnostic Imaging Report ---
INDICATION: Fall with lateral ankle pain. FINDINGS: Three views of the left ankle show no fractures. No dislocations. Articulating surfaces are smooth. Joint space is well preserved. IMPRESSION: Normal left ankle. Dictated by: Dictated on workstation # [id number]
--- NOTE | 2017-09-20 17:13 | Diagnostic Imaging Report ---
INDICATION: Fall. Lateral foot and ankle pain. FINDINGS: Three views. The left foot shows no fractures or dislocations. Articulating surfaces are smooth. Joint space is well preserved. IMPRESSION: Normal left foot. Dictated by: Dictated on workstation # [id number]
[2017-09-20 17:30] VITALS: BP 118/88
== END 2017-09-20 17:32 | disposition home or self-care (01) ==
LOC: EDUNIT# 16:25 → ER 16:27
DX: S93.602A Unspecified sprain of left foot, initial encounter (principal); F10.129 Alcohol abuse with intoxication, unspecified; F90.9 Attention-deficit hyperactivity disorder, unspecified type; F41.9 Anxiety disorder, unspecified; F31.9 Bipolar disorder, unspecified; Z88.0 Allergy status to penicillin; Z79.52 Long term (current) use of systemic steroids; Z79.51 Long term (current) use of inhaled steroids; W19.XXXA Unspecified fall, initial encounter; Y93.39 Activity, other involving climbing, rappelling and jumping off
CPT/HCPCS: 73610; 73630

== ENCOUNTER 2018-12-09 17:26 | Emergency (ER) | payer MEDICAID, MEDICARE ==
[~2018-12-09] VITALS: Ht 160 cm; Wt 65.8 kg
[2018-12-09] MEDS ORDERED: predniSONE 20 MG TAB PO ONE (17:45)
[2018-12-09] MEDS ORDERED: PRD20T PO (17:48)
--- NOTE | 2018-12-09 17:48 | ED General ---
General Chief Complaint: Allergic Reaction Stated Complaint: RASH Nursing Triage Note: PT STATES NOTICING A RASH A FEW DAYS AGO AND WENT TO [facility] AND WAS GIVEN BENADRYL AND A STEROID SHOT. PT STATES SHE WAS AT WORK TODAY AND NOTICED THE RASH EXTEND TO HER ARM AND STATES SOA AND TIGHTNESS IN CHEST. PT STATES THIS HAS SINCE RESOLVED. PT SHOWS NO SIGNS OF DISTRESS. Nursing Sepsis Screen: No Definite Risk Source of Information: Patient Exam Limitations: No Limitations History of Present Illness Date Seen by Provider: Dec 09, 2018 Time Seen by Provider: 17:34 Initial Comments Here with report of hives to her upper arms today. She actually had an episode a few days ago when she ate salmon and later developed fairly significant hives. She got a shot at her clinic of steroids and that seemed to help. She's been taken in a drill. That has not been working very well. Today she notes that she had the hives and then also felt a little short of breath. She presented here for further evaluation. Yosef somewhat resolving and she is not currently short of breath. Timing/Duration: 1 Hour Severity: Mild Associated Systoms: No Chest Pain, No Nausea/Vomiting; Rash, Shortness of Air Allergies and Home Medications Allergies Coded Allergies: Penicillins (Unverified Adverse Reaction, Mild, RASH, VOMITING, 11/28/09) Home Medications Fluticasone Propionate 9.9 Ml [place].susp, 2 SPRAYS NS BID Prescribed by: MONY MILLER on 05/15/17818 Guanfacine Hcl 3 Mg Tab.sr.24h, 3 PO DAILY, (Reported) Ibuprofen 800 Mg Tab, 600 MG PO Q8HR PRN Prescribed by: GIANNA AKHTAR on 05/30/121822 Lisdexamfetamine Dimesylate 70 Mg Capsule, 70 PO DAILY, (Reported) Loratadine/Pseudoephedrine 1 Each Tab.er.12h, 1 EACH PO BID Prescribed by: MONY MILLER on 05/15/17818 Prednisone 10 Mg Tab, 40 MG PO DAILY Prescribed by: MONY MILLER on 10/20/16 0048 [Trinessa] , DAILY, (Reported) Patient Home Medication List Home Medication List Reviewed: Yes Review of Systems Review of Systems Constitutional: see HPI; No chills, No fever EENTM: no symptoms reported Respiratory: short of breath; No wheezing Cardiovascular: no symptoms reported Gastrointestinal: no symptoms reported Skin: see HPI, pruritus, rash Past Izzkztc-Hmmbwv-Dkpytz Hx Past Med/Social Hx: Reviewed Nursing Past Med/Soc Hx Patient Social History Alcohol Use: Denies Use Recreational Drug Use: No Smoking Status: Never a Smoker 2nd Hand Smoke Exposure: No Recent Foreign Travel: No Contact w/Someone Who Travel: No Recent Infectious Disease Expo: No Recent Hopitalizations: No Physical Abuse: No Sexual Abuse: No Mistreated: No Fear: No Immunizations Up To Date Tetanus Booster (TDap): Less than 5yrs PED Vaccines UTD: Yes Seasonal Allergies Seasonal Allergies: No Past Medical History Surgeries: No Respiratory: No Cardiac: No Neurological: No Genitourinary: No Gastrointestinal: No Musculoskeletal: No Endocrine: No HEENT: No Cancer: No Psychosocial: Yes ADD/ADHD, Anxiety, Bipolar, Depression Integumentary: No Blood Disorders: No Family Medical History Reviewed Nursing Family Hx Physical Exam Vital Signs Vital Signs - First Documented 12/09/18 17:32 Temp 97.6 Pulse 69 Resp 18 B/P (MAP) 128/72 (90) Pulse Ox 98 O2 Delivery Room Air Capillary Refill : Less Than 3 Seconds Height, Weight, BMI Height: 5'3.00" Weight: 145lbs. oz. 65.220975mt; 21.09 BMI Method:Stated General Appearance: No Apparent Distress, WD/WN (Service) Respiratory: Lungs Clear, Normal Breath Sounds Cardiovascular: Regular Rate, Rhythm, No Murmur Neurologic/Psychiatric: Alert, Oriented x3 Skin: Warm/Dry, Other (a few scattered hives noted to the area axilla bilateral.) Progress/Results/Core Measures Suspected Sepsis Recent Fever Within 48 Hours: No Infection Criteria Present: None New/Unexplained Altered Menta: No Sepsis Screen: No Definite Risk SIRS Temperature:97.6 Pulse: 69 Respiratory Rate: 18 Blood Pressure 128 /72 Mean: 90 Results/Orders My Orders Orders - DENISHA COVARRUBIAS MD Prednisone Tablet (Deltasone Tablet) (12/09/18 17:45) Vital Signs/I&O 12/09/18 17:32 Temp 97.6 Pulse 69 Resp 18 B/P (MAP) 128/72 (90) Pulse Ox 98 O2 Delivery Room Air Capillary Refill : Less Than 3 Seconds Blood Pressure Mean: 90 Progress Note : Progress Note Seen and evaluated. Prednisone 40 mg by mouth. Discharged home with return precautions. Patient verbalized understanding instructions and agreement with plan. Departure Impression Primary Impression: Urticaria Disposition: 01 HOME, SELF-CARE Condition: Improved Departure-Patient Inst. Decision time for Depature: 17:46 Referrals: [facility] (PCP/Family) Primary Care Physician Patient Instructions: Hives, Food Allergy Add. Discharge Instructions: All discharge instructions reviewed with patient and/or family. Voiced understanding. Take medications as directed. You may continue Benadryl one tablet every 6 hours as needed for itching. You may also take hror-mir-sfhvhxa famotidine/Pepcid 20 mg daily as needed for itching over the next 3-4 days. Follow-up with your DrAnthony in a few days for recheck. Return for increased hives, breathing problems, abdominal pain or vomiting, itching or swelling of the throat or other concerns as needed. Scripts Prednisone (Prednisone) 20 Mg Tab 40 MG PO DAILY, #6 TAB 0 Refills Prov: DENISHA COVARRUBIAS MD 12/09/18 Work/School Note: Work Release Form Date Seen in the Emergency Department: Dec 09, 2018 Return to Work: Dec 10, 2018 Restrictions: No Restrictions DENISHA COVARRUBIAS MD Dec 09, 2018 17:48
[2018-12-09 18:01] VITALS: BP 128/72
--- OUTSIDE RECORDS SUMMARY | 2018-12-10 01:19 | XMS REPORT ---
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 Role Phone RAGINI OROSCO Unavailable PROBLEMS Type Condition ICD9-CM Code HPS92-WE Code Onset Dates Condition Status SNOMED Code Problem Acute non intractable tension-type headache G44.209 Active 407338987 Problem Infection of right ear H66.91 Active [id number] Problem Attention deficit disorder with hyperactivity F90.9 Active 460524196 Problem ODD (oppositional defiant disorder) F91.3 Active 03860730 Problem Encounter for initial prescription of injectable contraceptive Z30.013 Active 361701411 ALLERGIES No Information ENCOUNTERS Encounter Location Date Diagnosis [facility] [id number] [place] [address] Feb, Abscess L02.91 [facility] [id number] [place] [address] Jan, [place] [id number] [place] [address] Jan, Other specified bacterial agents as the cause of diseases classified elsewhere B96.89 and Acute vaginitis N76.0 [facility] [id number] [place] [address] Dec, Vaginal discharge N89.8 and Screening examination for sexually transmitted disease Z11.3 [facility] [id number] [place] [address] Nov, Dysuria R30.0 [facility] [id number] [place] [address] Oct, Bedbug bite, initial encounter W57.XXXA ; Insect bite (nonvenomous) of left upper arm, initial encounter S40.862A and Bitten or stung by nonvenomous insect and other nonvenomous arthropods, initial encounter W57.XXXA [facility] [place] [id number] [place] [address] Jul, Seasonal allergic rhinitis, unspecified trigger J30.2 [facility] [place] [id number] [place] [address] Apr, Sore throat J02.9 and Acute nasopharyngitis J00 [place] [address] [address] Apr, [address] [address] Mar, control counseling Z30.09 [facility] [place] [id number] [place] [address] Feb, Infection of right ear H66.91 ; Vaginal discharge N89.8 and Sore throat J02.9 [facility] [place] [id number] [place] [address] Feb, Encounter for Depo-Provera contraception Z30.42 ; Sore throat J02.9 ; Acute allergic rhinitis J30.9 and Acute nasopharyngitis (common cold) J00 [facility] [place] [id number] [place] [address] Dec, Other viral agents as the cause of diseases classified elsewhere B97.89 and Acute upper respiratory infection, unspecified J06.9 [place] [id number] [place] [address] Dec, Vaginal discharge N89.8 [place] [id number] [place] [address] Dec, Routine gynecological examination Z01.419 ; Encounter for counseling regarding contraception Z30.09 and Vaginal discharge N89.8 [facility] [place] [id number] [place] [address] Nov, Encounter for Depo-Provera contraception Z30.42 and Viral gastroenteritis A08.4 [facility] [id number] [place] [address] Nov, Acute nonintractable headache, unspecified headache type R51 and Acute seasonal allergic rhinitis, unspecified trigger J30.2 [facility] [id number] [place] [address] September, Acute non intractable tension-type headache G44.209 [place] [id number] [place] [address] September, Urinary frequency R35.0 [place] [id number] [place] [address] September, [place] [id number] [place] [address] Aug, Urinary frequency R35.0 and Encounter for Depo-Provera contraception Z30.42 [facility] [id number] [place] [address] Jul, Sore throat J02.9 and Strep pharyngitis J02.0 [facility] [place] [id number] [place] [address] May, Encounter for Depo-Provera contraception Z30.42 [place] [id number] [place] [address] Apr, General medical exam Z00.00 and Surveillance for Depo-Provera contraception Z30.42 [place] [id number] [place] [address] Mar, Attention deficit disorder with hyperactivity F90.9 [facility] [id number] [place] [address] Feb, Encounter for Depo-Provera contraception Z30.42 [place] [id number] [address] Feb, [facility] [id number] [place] [address] Jan, Sore throat J02.9 [place] [id number] [place] [address] Jan, [place] [address] [address] Dec, [place] [id number] [place] [address] Dec, Encounter for Depo-Provera contraception Z30.42 [place] [id number] [place] [address] Nov, Recent urinary tract infection Z87.440 and Urinary frequency R35.0 [place] [address] [address] Nov, [place] [id number] [place] [address] Oct, [place] [id number] [place] [address] September, Attention deficit disorder with hyperactivity F90.9 and ODD (oppositional defiant disorder) F91.3 [place] [id number] [place] [address] September, Routine gynecological examination Z01.419 ; Encounter for counseling regarding contraception Z30.9 ; Encounter for initial prescription of injectable contraceptive Z30.013 and Encounter for Depo-Provera contraception Z30.42 [facility] [place] [id number] [place] [address] Aug, Migraine without aura and without status migrainosus, not intractable G43.009 [facility] [id number] [place] [address] Aug, Sore throat J02.9 and Acute streptococcal pharyngitis J02.0 [facility] [address] [address] Aug, Acute upper respiratory infection, unspecified J06.9 [facility] [id number] [address] Jun, [facility] [address] [address] Jun, Sore throat J02.9 [facility] [id number] [address] May, [facility] [id number] [place] [address] May, [facility] [id number] [place] [address] Apr, [facility] [id number] [place] [address] Mar, [facility] [id number] [place] [address] Mar, Attention deficit disorder with hyperactivity F90.9 and ODD (oppositional defiant disorder) F91.3 [place] [address] [address] Mar, [facility] [id number] [place] [address] Feb, [facility] [address] [address] Jan, [facility] [id number] [place] [address] Jan, Bipolar disorder, unspecified 296.80 ; Attention deficit disorder with hyperactivity 314.01 and Parent-child conflict V61.20 [facility] [address] [address] Dec, [place] [address] [address] Dec, Routine child health exam V20.2 ; Dietary counseling and surveillance V65.3 ; Exercise counseling V65.41 ; Contraception management V25.9 and HEP A (ADULT) DX V05.3 [facility] [id number] [place] [address] Nov, Oppositional defiant disorder 313.81 ; Bipolar disorder, unspecified 296.80 ; Anxiety state, unspecified 300.00 ; Parent-child conflict V61.20 and Attention deficit disorder with hyperactivity 314.01 [facility] [id number] [place] [address] Oct, [facility] [id number] [place] [address] Oct, [facility] [id number] [place] [address] Oct, [facility] [id number] [place] [address] September, [facility] [id number] [place] [address] September, [facility] [address] [address] September, [facility] [address] [address] Aug, [facility] [id number] [address] Aug, [facility] [id number] [place] [address] Jul, [facility] [id number] [address] Jul, [facility] [id number] [place] [address] Jul, [facility] [place] [facility] [address] [id number] [place] [address] Jul, [facility] [place] [facility] [address] [id number] [place] [address] Jun, [facility] [place] [facility] [address] [id number] [place] [address] Jun, [facility] [place] [facility] [address] [id number] [place] [address] May, [facility] [place] [facility] [address] [id number] [place] [address] May, [facility] [place] [facility] [address] [id number] [place] [address] May, [facility] [place] [facility] [address] [id number] [place] [address] May, [facility] [place] [facility] [address] [id number] [place] [address] May, [facility] [place] [facility] [address] [id number] [place] [address] May, [facility] [place] [facility] [address] [id number] [place] [address] May, [facility] [place] [facility] [address] [id number] [place] [address] May, [facility] [place] [facility] [address] [id number] [address] Mar, [facility] [place] [facility] [address] [id number] [place] [address] Mar, [facility] [place] [facility] [address] [id number] [place] [address] Feb, [facility] [place] [facility] [address] [id number] [place] [address] Feb, [facility] [place] [facility] [address] [id number] [place] [address] Jan, [facility] [place] [facility] [address] [id number] [place] [address] Jan, [facility] [place] [facility] [address] [id number] [place] [address] Nov, [facility] [place] [facility] [address] [id number] [place] [address] Nov, [facility] [place] [facility] [address] [id number] [place] [address] Nov, [facility] [place] [facility] [address] [id number] [place] [address] Nov, [facility] [place] [facility] [address] [id number] [place] [address] September, [facility] [address] [id number] [place] [address] September, [facility] [place] [facility] [address] [id number] [place] [address] Apr, [facility] [place] [facility] [address] [id number] [place] [address] Apr, [facility] [place] [facility] [address] [id number] [place] [address] Feb, [facility] [place] [facility] [address] [id number] [place] [address] Feb, [facility] [place] [facility] [address] [id number] [place] [address] Oct, [facility] [place] [facility] [address] [id number] [place] [address] September, [facility] [place] [facility] [address] [id number] [place] [address] September, [facility] [place] [facility] [address] [id number] [place] [address] Aug, [facility] [place] [facility] [address] [id number] [place] [address] September, [facility] [address] [id number] [address] Aug, [facility] [id number] [address] Aug, [facility] [id number] [address] Aug, [facility] [id number] [address] Jul, [facility] [id number] [address] Aug, [facility] [id number] [address] Jul, IMMUNIZATIONS No Known Immunizations SOCIAL HISTORY Never Assessed REASON FOR VISIT PLAN OF CARE VITAL SIGNS Height 63.25 in 2014-07-23 Weight 104.5 lbs 2014-07-23 Temperature 98.5 degrees Fahrenheit 2014-07-23 Heart Rate 77 bpm 2014-07-23 Respiratory Rate 24 2014-07-23 Blood pressure systolic 104 mmHg 2014-07-23 Blood pressure diastolic 80 mmHg 2014-07-23 MEDICATIONS No Known Medications RESULTS No Results PROCEDURES No Known procedures INSTRUCTIONS MEDICATIONS ADMINISTERED No Known Medications MEDICAL (GENERAL) HISTORY Type Description Date Medical History attention deficit hyperactivity disorder Medical History bicuspid aortic valve Medical History schizophrenia Medical History dysmenorrhea Medical History Bipolar disorder, unspecified Surgical History No know Surgical history
--- OUTSIDE RECORDS SUMMARY | 2018-12-10 01:20 | XMS REPORT ---
Author Author KWESI RAGINI [facility] Address [address] [place] [address] Care Team Providers Care Sheriff'S Officer Name Role Phone RAGINI OROSCO Unavailable PROBLEMS Type Condition ICD9-CM Code LGD23-FJ Code Onset Dates Condition Status SNOMED Code Problem Acute non intractable tension-type headache G44.209 Active 683353902 Problem Infection of right ear H66.91 Active [id number] Problem Attention deficit disorder with hyperactivity F90.9 Active 920653281 Problem ODD (oppositional defiant disorder) F91.3 Active 25341582 Problem Encounter for initial prescription of injectable contraceptive Z30.013 Active 300409142 ALLERGIES No Information ENCOUNTERS Encounter Location Date Diagnosis [facility] [id number] [place] [address] Feb, Abscess L02.91 [facility] [id number] [place] [address] Jan, [place] [id number] [place] [address] Jan, Other specified bacterial agents as the cause of diseases classified elsewhere B96.89 and Acute vaginitis N76.0 [facility] [id number] [place] [address] Dec, Vaginal discharge N89.8 and Screening examination for sexually transmitted disease Z11.3 [facility] [id number] [place] [address] Nov, Dysuria R30.0 [facility] [id number] [place] [address] Oct, Bedbug bite, initial encounter W57.XXXA ; Insect bite (nonvenomous) of left upper arm, initial encounter S40.862A and Bitten or stung by nonvenomous insect and other nonvenomous arthropods, initial encounter W57.XXXA [facility] [place] [id number] [place] [address] Jul, Seasonal allergic rhinitis, unspecified trigger J30.2 [facility] [place] [id number] [place] [address] Apr, Sore throat J02.9 and Acute nasopharyngitis J00 [place] [address] [address] Apr, [address] [address] Mar, control counseling Z30.09 [facility] [place] [id number] [place] [address] Feb, Infection of right ear H66.91 ; Vaginal discharge N89.8 and Sore throat J02.9 [facility] [place] [id number] [place] [address] Feb, Encounter for Depo-Provera contraception Z30.42 ; Sore throat J02.9 ; Acute allergic rhinitis J30.9 and Acute nasopharyngitis (common cold) J00 [facility] [place] [id number] [place] [address] Dec, Other viral agents as the cause of diseases classified elsewhere B97.89 and Acute upper respiratory infection, unspecified J06.9 [place] [id number] [place] [address] Dec, Vaginal discharge N89.8 [place] [id number] [place] [address] Dec, Routine gynecological examination Z01.419 ; Encounter for counseling regarding contraception Z30.09 and Vaginal discharge N89.8 [facility] [place] [id number] [place] [address] Nov, Encounter for Depo-Provera contraception Z30.42 and Viral gastroenteritis A08.4 [facility] [id number] [place] [address] Nov, Acute nonintractable headache, unspecified headache type R51 and Acute seasonal allergic rhinitis, unspecified trigger J30.2 [facility] [id number] [place] [address] September, Acute non intractable tension-type headache G44.209 [place] [id number] [place] [address] September, Urinary frequency R35.0 [place] [id number] [place] [address] September, [place] [id number] [place] [address] Aug, Urinary frequency R35.0 and Encounter for Depo-Provera contraception Z30.42 [facility] [address] [address] [id number] [place] [address] Jul, Sore throat J02.9 and Strep pharyngitis J02.0 [facility] [place] [id number] [place] [address] May, Encounter for Depo-Provera contraception Z30.42 [place] [id number] [place] [address] Apr, General medical exam Z00.00 and Surveillance for Depo-Provera contraception Z30.42 [place] [id number] [place] [address] Mar, Attention deficit disorder with hyperactivity F90.9 [facility] [address] [address] [id number] [place] [address] Feb, Encounter for Depo-Provera contraception Z30.42 [place] [id number] [address] Feb, [facility] [id number] [place] [address] Jan, Sore throat J02.9 [place] [id number] [place] [address] Jan, [place] [address] [address] Dec, [place] [id number] [place] [address] Dec, Encounter for Depo-Provera contraception Z30.42 [place] [id number] [place] [address] Nov, Recent urinary tract infection Z87.440 and Urinary frequency R35.0 [place] [address] [address] Nov, [place] [id number] [place] [address] Oct, [place] [id number] [place] [address] September, Attention deficit disorder with hyperactivity F90.9 and ODD (oppositional defiant disorder) F91.3 [place] [id number] [place] [address] September, Routine gynecological examination Z01.419 ; Encounter for counseling regarding contraception Z30.9 ; Encounter for initial prescription of injectable contraceptive Z30.013 and Encounter for Depo-Provera contraception Z30.42 [facility] [place] [id number] [place] [address] Aug, Migraine without aura and without status migrainosus, not intractable G43.009 [facility] [address] [place] [address] Aug, Sore throat J02.9 and Acute streptococcal pharyngitis J02.0 [facility] [address] [place] [address] Aug, Acute upper respiratory infection, unspecified J06.9 [facility] [address] [place] [address] Jun, [facility] [address] [place] [address] Jun, Sore throat J02.9 [facility] [address] [place] [address] May, [facility] [id number] [place] [address] May, [facility] [address] [place] [address] Apr, [facility] [id number] [place] [address] Mar, [facility] [address] [place] [address] Mar, Attention deficit disorder with hyperactivity F90.9 and ODD (oppositional defiant disorder) F91.3 [place] [address] [address] Mar, [facility] [address] [place] [address] Feb, [facility] [address], [place] [address] Jan, [facility] [id number] [place] [address] Jan, Bipolar disorder, unspecified 296.80 ; Attention deficit disorder with hyperactivity 314.01 and Parent-child conflict V61.20 [facility] [address] [place] [address] Dec, [place] [address] [address] Dec, Routine child health exam V20.2 ; Dietary counseling and surveillance V65.3 ; Exercise counseling V65.41 ; Contraception management V25.9 and HEP A (ADULT) DX V05.3 [facility] [id number] [place] [address] Nov, Oppositional defiant disorder 313.81 ; Bipolar disorder, unspecified 296.80 ; Anxiety state, unspecified 300.00 ; Parent-child conflict V61.20 and Attention deficit disorder with hyperactivity 314.01 [facility] [id number] [place] [address] Oct, [facility] [id number] [place] [address] Oct, [facility] [id number] [place] [address] Oct, [facility] [id number] [place] [address] September, [facility] [id number] [place] [address] September, [facility] [address] [address] September, [facility] [address] [place] [address] Aug, [facility] [id number] [address] Aug, [facility] [id number] [place] [address] Jul, [facility] [id number] [address] Jul, [facility] [address] [place] [address] Jul, [facility] [place] [facility] [address] [id number] [place] [address] Jul, [facility] [place] [facility] [address] [id number] [place] [address] Jun, [facility] [place] [facility] [address] [id number] [place] [address] Jun, [facility] [place] [facility] [address] [id number] [place] [address] May, [facility] [place] [facility] [address] [id number] [place] [address] May, [facility] [place] [facility] [address] [id number] [place] [address] May, [facility] [place] [facility] [address] [id number] [place] [address] May, [facility] [place] [facility] [address] [id number] [place] [address] May, [facility] [place] [facility] [address] [id number] [place] [address] May, [facility] [place] [facility] [address] [id number] [place] [address] May, [facility] [place] [facility] [address] [id number] [place] [address] May, [facility] [place] [facility] [address] [id number], [place] [address] Mar, [facility] [place] [facility] [address] [id number] [place] [address] Mar, [facility] [place] [facility] [address] [id number] [place] [address] Feb, [facility] [place] [facility] [address] [id number] [address] Feb, [facility] [place] [facility] [address] [id number], [place] [address] Jan, [facility] [place] [facility] [address] [id number] [place] [address] Jan, [facility] [place] [facility] [address] [id number] [place] [address] Nov, [facility] [place] [facility] [address] [id number] [place] [address] Nov, [facility] [place] [facility] [address] [id number] [place] [address] Nov, [facility] [place] [facility] [address] [id number] [place] [address] Nov, [facility] [place] [facility] [address] [id number] [place] [address] September, [facility] [address] [id number] [place] [address] September, [facility] [place] [facility] [address] [id number] [place] [address] Apr, [facility] [place] [facility] [address] [id number] [place] [address] Apr, [facility] [place] [facility] [address] [id number] [place] [address] Feb, [facility] [place] [facility] [address] [id number] [place] [address] Feb, [facility] [place] [facility] [address] [id number] [place] [address] Oct, [facility] [place] [facility] [address] [id number] [place] [address] September, [facility] [place] [facility] [address] [id number] [place] [address] September, [facility] [place] [facility] [address] [id number] [place] [address] Aug, [facility] [place] [facility] [address] [id number] [address] September, [facility] [address], [place] [address] Aug, [facility] [address], [place] [address] Aug, [facility] [address] [place] [id number] [address] Aug, [facility] [address], [place] [address] Jul, [facility] [address] [id number] [address] Aug, [facility] [id number] [address] Jul, IMMUNIZATIONS No Known Immunizations SOCIAL HISTORY Never Assessed REASON FOR VISIT PLAN OF CARE VITAL SIGNS MEDICATIONS No Known Medications RESULTS No Results PROCEDURES No Known procedures INSTRUCTIONS MEDICATIONS ADMINISTERED No Known Medications MEDICAL (GENERAL) HISTORY Type Description Date Medical History attention deficit hyperactivity disorder Medical History bicuspid aortic valve Medical History schizophrenia Medical History dysmenorrhea Medical History Bipolar disorder, unspecified Surgical History No know Surgical history
--- OUTSIDE RECORDS SUMMARY | 2018-12-10 01:20 | XMS REPORT ---
Author Author KWESI RAGINI [facility] Address [address] [place] [address] Care Team Providers [facility] Name Role Phone RAGINI OROSCO Unavailable PROBLEMS Type Condition ICD9-CM Code TCW27-XF Code Onset Dates Condition Status SNOMED Code Problem Acute non intractable tension-type headache G44.209 Active 003443939 Problem Infection of right ear H66.91 Active 4097262291099229 Problem Attention deficit disorder with hyperactivity F90.9 Active 547514698 Problem ODD (oppositional defiant disorder) F91.3 Active 97457300 Problem Encounter for initial prescription of injectable contraceptive Z30.013 Active [id number] ALLERGIES No Information ENCOUNTERS Encounter Location Date Diagnosis [facility] [id number] [place] [address] Feb, Abscess L02.91 [facility] [place] [address] [id number] [place] [address] Jan, [place] [id number] [place] [address] Jan, Other specified bacterial agents as the cause of diseases classified elsewhere B96.89 and Acute vaginitis N76.0 [facility] [place] [id number] [place] [address] Dec, Vaginal discharge N89.8 and Screening examination for sexually transmitted disease Z11.3 [facility] [place] [id number] [place] [address] Nov, Dysuria R30.0 [facility] [id number] [place] [address] Oct, Bedbug bite, initial encounter W57.XXXA ; Insect bite (nonvenomous) of left upper arm, initial encounter S40.862A and Bitten or stung by nonvenomous insect and other nonvenomous arthropods, initial encounter W57.XXXA [facility] [place] [id number] [place] [address] Jul, Seasonal allergic rhinitis, unspecified trigger J30.2 [facility] [place] [id number] [place] [address] Apr, Sore throat J02.9 and Acute nasopharyngitis J00 [place] [address] [address] Apr, [address] [address] Mar, control counseling Z30.09 [facility] [place] [id number] [place] [address] Feb, Infection of right ear H66.91 ; Vaginal discharge N89.8 and Sore throat J02.9 [facility] [place] [id number] [place] [address] Feb, Encounter for Depo-Provera contraception Z30.42 ; Sore throat J02.9 ; Acute allergic rhinitis J30.9 and Acute nasopharyngitis (common cold) J00 [facility] [place] [id number] [place] [address] Dec, Other viral agents as the cause of diseases classified elsewhere B97.89 and Acute upper respiratory infection, unspecified J06.9 [place] [id number] [place] [address] Dec, Vaginal discharge N89.8 [place] [id number] [place] [address] Dec, Routine gynecological examination Z01.419 ; Encounter for counseling regarding contraception Z30.09 and Vaginal discharge N89.8 [facility] [place] [id number] [place] [address] Nov, Encounter for Depo-Provera contraception Z30.42 and Viral gastroenteritis A08.4 [facility] [id number] [place] [address] Nov, Acute nonintractable headache, unspecified headache type R51 and Acute seasonal allergic rhinitis, unspecified trigger J30.2 [facility] [id number] [place] [address] September, Acute non intractable tension-type headache G44.209 [place] [id number] [place] [address] September, Urinary frequency R35.0 [place] [id number] [place] [address] September, [place] [id number] [place] [address] Aug, Urinary frequency R35.0 and Encounter for Depo-Provera contraception Z30.42 [facility] [address] [id number] [place] [address] Jul, Sore throat J02.9 and Strep pharyngitis J02.0 [facility] [place] [id number] [place] [address] May, Encounter for Depo-Provera contraception Z30.42 [place] [id number] [place] [address] Apr, General medical exam Z00.00 and Surveillance for Depo-Provera contraception Z30.42 [place] [id number] [place] [address] Mar, Attention deficit disorder with hyperactivity F90.9 [facility] [address] [address] [id number] [place] [address] Feb, Encounter for Depo-Provera contraception Z30.42 [place] [id number] [address] Feb, [facility] [id number] [place] [address] Jan, Sore throat J02.9 [place] [id number] [place] [address] Jan, [place] [address] [address] Dec, [place] [id number] [place] [address] Dec, Encounter for Depo-Provera contraception Z30.42 [place] [id number] [place] [address] Nov, Recent urinary tract infection Z87.440 and Urinary frequency R35.0 [place] [address] [address] Nov, [place] [id number] [place] [address] Oct, [place] [id number] [place] [address] September, Attention deficit disorder with hyperactivity F90.9 and ODD (oppositional defiant disorder) F91.3 [place] [id number] [place] [address] September, Routine gynecological examination Z01.419 ; Encounter for counseling regarding contraception Z30.9 ; Encounter for initial prescription of injectable contraceptive Z30.013 and Encounter for Depo-Provera contraception Z30.42 [facility] [place] [id number] [place] [address] Aug, Migraine without aura and without status migrainosus, not intractable G43.009 [facility] [address] [place] [address] Aug, Sore throat J02.9 and Acute streptococcal pharyngitis J02.0 [facility] [address] [address] Aug, Acute upper respiratory infection, unspecified J06.9 [facility] [place] [address] [address] Jun, [facility] [address] [place] [address] Jun, Sore throat J02.9 [facility] [place] [address], [place] [address] May, [facility] [place] [id number] [place] [address] May, [facility] [place] [id number] [place] [address] Apr, [facility] [place] [id number] [place] [address] Mar, [facility] [place] [id number] [place] [address] Mar, Attention deficit disorder with hyperactivity F90.9 and ODD (oppositional defiant disorder) F91.3 [place] [address] [place] [address] Mar, [facility] [place] [id number] [place] [address] Feb, [facility] [place] [address], [place] [address] Jan, [facility] [place] [id number] [place] [address] Jan, Bipolar disorder, unspecified 296.80 ; Attention deficit disorder with hyperactivity 314.01 and Parent-child conflict V61.20 [facility] [place] [address] [place] [address] Dec, [place] [address] [address] Dec, Routine child health exam V20.2 ; Dietary counseling and surveillance V65.3 ; Exercise counseling V65.41 ; Contraception management V25.9 and HEP A (ADULT) DX V05.3 [facility] [place] [id number] [place] [address] Nov, Oppositional defiant disorder 313.81 ; Bipolar disorder, unspecified 296.80 ; Anxiety state, unspecified 300.00 ; Parent-child conflict V61.20 and Attention deficit disorder with hyperactivity 314.01 [facility] [place] [id number] [place] [address] Oct, [facility] [place] [id number] [place] [address] Oct, [facility] [place] [id number] [place] [address] Oct, [facility] [place] [id number] [place] [address] September, [facility] [place] [id number] [place] [address] September, [facility] [place] [address] [address] September, [facility] [place] [address], [place] [address] Aug, [facility] [place] [id number] [address] Aug, [facility] [place] [id number] [place] [address] Jul, [facility] [place] [id number] [address] Jul, [facility] [place] [id number] [place] [address] Jul, [facility] [place] [facility] [address] [id number] [place] [address] Jul, [facility] [place] [facility] [address] [id number] [place] [address] Jun, [facility] [place] [facility] [address] [id number] [place] [address] Jun, [facility] [place] [facility] [address] [id number] [place] [address] May, [facility] [place] [facility] [address] [id number] [place] [address] May, [facility] [place] [facility] [address] [id number] [place] [address] May, [facility] [place] [facility] [address] [id number] [place] [address] May, [facility] [place] [facility] [address] [id number] [place] [address] May, [facility] [place] [facility] [address] [id number] [place] [address] May, [facility] [place] [facility] [address] [id number] [place] [address] May, [facility] [place] [facility] [address] [id number] [place] [address] May, [facility] [place] [facility] [address] [id number], [place] [address] Mar, [facility] [place] [facility] [address] [id number] [place] [address] Mar, [facility] [place] [facility] [address] [id number] [place] [address] Feb, [facility] [place] [facility] [address] [id number], [place] [address] Feb, [facility] [place] [facility] [address] [id number], [place] [address] Jan, [facility] [place] [facility] [address] [id number] [place] [address] Jan, [facility] [place] [facility] [address] [id number] [place] [address] Nov, [facility] [place] [facility] [address] [id number] [place] [address] Nov, [facility] [place] [facility] [address] [id number] [place] [address] Nov, [facility] [place] [facility] [address] [id number] [place] [address] Nov, [facility] [place] [facility] [address] [id number] [place] [address] September, [facility] [address] [id number] [place] [address] September, [facility] [place] [facility] [address] [id number] [place] [address] Apr, [facility] [place] [facility] [address] [id number] [place] [address] Apr, [facility] [place] [facility] [address] [id number] [place] [address] Feb, [facility] [place] [facility] [address] [id number] [place] [address] Feb, [facility] [place] [facility] [address] [id number] [place] [address] Oct, [facility] [place] [facility] [address] [id number] [place] [address] September, [facility] [place] [facility] [address] [id number] [place] [address] September, [facility] [place] [facility] [address] [id number] [place] [address] Aug, [facility] [place] [facility] [address] [id number], [place] [address] September, [facility] [place] [address], [place] [address] Aug, [facility] [place] [address], [place] [address] Aug, [facility] [place] [id number] [address] Aug, [facility] [place] [address], [place] [address] Jul, [facility] [place] [id number] [address] Aug, [facility] [place] [id number] [address] Jul, IMMUNIZATIONS No Known Immunizations SOCIAL HISTORY [...]
--- OUTSIDE RECORDS SUMMARY | 2018-12-10 01:20 | XMS REPORT ---
Author Author Migration, Doctor Organization [facility] Address Unknown Phone Unavailable Care Team Providers Care Echo Tech Name Role Phone Migration, Doctor Unavailable Unavailable PROBLEMS Type Condition ICD9-CM Code ECH25-MF Code Onset Dates Condition Status SNOMED Code Problem Acute non intractable tension-type headache G44.209 Active 166534430 Problem Infection of right ear H66.91 Active 7273821334122439 Problem Attention deficit disorder with hyperactivity F90.9 Active 559064605 Problem ODD (oppositional defiant disorder) F91.3 Active 64538256 Problem Encounter for initial prescription of injectable contraceptive Z30.013 Active [id number] ALLERGIES No Information ENCOUNTERS Encounter Location Date Diagnosis [facility] [id number] [place] [address] Feb, Abscess L02.91 [place] [id number] [place] [address] Jan, [place] [address] [address] Jan, Other specified bacterial agents as the cause of diseases classified elsewhere B96.89 and Acute vaginitis N76.0 [place] [id number] [place] [address] Dec, Vaginal discharge N89.8 and Screening examination for sexually transmitted disease Z11.3 [place] [id number] [place] [address] Nov, Dysuria R30.0 [facility] [id number] [place] [address] Oct, Bedbug bite, initial encounter W57.XXXA ; Insect bite (nonvenomous) of left upper arm, initial encounter S40.862A and Bitten or stung by nonvenomous insect and other nonvenomous arthropods, initial encounter W57.XXXA [facility] [place] [id number] [place] [address] Jul, Seasonal allergic rhinitis, unspecified trigger J30.2 [facility] [place] [id number] [place] [address] Apr, Sore throat J02.9 and Acute nasopharyngitis J00 [address] [address] Apr, [address] [address] Mar, control counseling Z30.09 [facility] [address] [address] Feb, Infection of right ear H66.91 ; Vaginal discharge N89.8 and Sore throat J02.9 [facility] [address] [place] [id number] [place] [address] Feb, Encounter for Depo-Provera contraception Z30.42 ; Sore throat J02.9 ; Acute allergic rhinitis J30.9 and Acute nasopharyngitis (common cold) J00 [facility] [address] [place] [id number] [place] [address] Dec, Other viral agents as the cause of diseases classified elsewhere B97.89 and Acute upper respiratory infection, unspecified J06.9 [place] [id number] [place] [address] Dec, Vaginal discharge N89.[address] [address] Dec, Routine gynecological examination Z01.419 ; Encounter for counseling regarding contraception Z30.09 and Vaginal discharge N89.8 [facility] [address] [place] [id number] [place] [address] Nov, Encounter for Depo-Provera contraception Z30.42 and Viral gastroenteritis A08.4 [facility] [place] [id number] [place] [address] Nov, Acute nonintractable headache, unspecified headache type R51 and Acute seasonal allergic rhinitis, unspecified trigger J30.2 [facility] [place] [id number] [place] [address] September, Acute non intractable tension-type headache G44.209 [place] [address] [address] September, Urinary frequency R35.0 [place] [address] [address] September, [place] [address] [address] Aug, Urinary frequency R35.0 and Encounter for Depo-Provera contraception Z30.42 [facility] [place] [id number] [place] [address] Jul, Sore throat J02.9 and Strep pharyngitis J02.0 [facility] [place] [id number] [place] [address] May, Encounter for Depo-Provera contraception Z30.42 [place] [id number] [place] [address] Apr, General medical exam Z00.00 and Surveillance for Depo-Provera contraception Z30.42 [place] [id number] [place] [address] Mar, Attention deficit disorder with hyperactivity F90.9 [facility] [place] [id number] [place] [address] Feb, Encounter for Depo-Provera contraception Z30.42 [place] [id number] [place] [address] Feb, [facility] [address] [address] Jan, Sore throat J02.9 [facility] [address] [address] 07 Jan, 2016 [facility] [address] [address] Dec, [place] [id number] [place] [address] Dec, Encounter for Depo-Provera contraception Z30.42 [place] [id number] [place] [address] Nov, Recent urinary tract infection Z87.440 and Urinary frequency R35.0 [place] [id number] [place] [address] Nov, [place] [id number] [place] [address] Oct, [place] [address] [place] [address] September, Attention deficit disorder with hyperactivity F90.9 and ODD (oppositional defiant disorder) F91.3 [place] [address] [address] September, Routine gynecological examination Z01.419 ; Encounter for counseling regarding contraception Z30.9 ; Encounter for initial prescription of injectable contraceptive Z30.013 and Encounter for Depo-Provera contraception Z30.42 [facility] [address] [address] Aug, Migraine without aura and without status migrainosus, not intractable G43.009 [facility] [address] [address] 08 Aug, 2015 Sore throat J02.9 and Acute streptococcal pharyngitis J02.0 [facility] [id number] [address] Aug, Acute upper respiratory infection, unspecified J06.9 [facility] [id number] [place] [address] Jun, [facility] [address] [address] Jun, Sore throat J02.9 [facility] [id number] [place] [address] May, [facility] [id number] [place] [address] May, [facility] [id number] [place] [address] Apr, [facility] [id number] [place] [address] Mar, [facility] [id number] [place] [address] Mar, Attention deficit disorder with hyperactivity F90.9 and ODD (oppositional defiant disorder) F91.3 [facility] [id number] [place] [address] Mar, [facility] [id number] [place] [address] Feb, [facility] [id number] [place] [address] Jan, [facility] [id number] [place] [address] Jan, Bipolar disorder, unspecified 296.80 ; Attention deficit disorder with hyperactivity 314.01 and Parent-child conflict V61.20 [facility] [address] [address] Dec, [facility] [id number] [place] [address] Dec, Routine child health exam V20.2 ; Dietary counseling and surveillance V65.3 ; Exercise counseling V65.41 ; Contraception management V25.9 and HEP A (ADULT) DX V05.3 [facility] [address] [place] [address] Nov, Oppositional defiant disorder 313.81 ; Bipolar disorder, unspecified 296.80 ; Anxiety state, unspecified 300.00 ; Parent-child conflict V61.20 and Attention deficit disorder with hyperactivity 314.01 [facility] [id number] [place] [address] Oct, [facility] [id number] [place] [address] Oct, [facility] [id number] [place] [address] Oct, [facility] [id number] [place] [address] September, [facility] [id number] [place] [address] September, [facility] [id number] [place] [address] September, [facility] [address] [address] Aug, [facility] [id number] [place] [address] Aug, [facility] [id number] [place] [address] Jul, [facility] [id number] [place] [address] Jul, [facility] [address] [address] Jul, [facility] [id number] [place] [address] Jul, [facility] [place] [facility] [address] [id number] [place] [address] Jun, [facility] [place] [facility] [address] [id number] [place] [address] Jun, [facility] [place] [facility] [address] [id number] [place] [address] May, [facility] [place] [facility] [address] [id number] [place] [address] May, [facility] [place] [facility] [address] [id number] [place] [address] May, [facility] [place] [facility] [address] [id number] [place] [address] May, [facility] [place] [facility] [address] [id number] [place] [address] May, [facility] [place] [facility] [address] [id number] [address] May, [facility] [place] [facility] [address] [id number] [address] May, [facility] [place] [facility] [address] [id number] [place] [address] May, [facility] [place] [facility] [address] [id number] [place] [address] Mar, [facility] [place] [facility] [address] [id number] [place] [address] Mar, [facility] [place] [facility] [address] [id number] [place] [address] Feb, [facility] [place] [facility] [address] [id number] [address] Feb, [facility] [place] [facility] [address] [id number] [place] [address] Jan, [facility] [place] [facility] [address] [id number] [place] [address] Jan, [facility] [address] [id number] [place] [address] Nov, [facility] [place] [facility] [address] [id number] [place] [address] Nov, [facility] [address] [id number] [place] [address] Nov, [facility] [place] [facility] [address] [id number] [place] [address] Nov, [facility] [address] [id number] [place] [address] September, [facility] [place] [facility] [address] [id number] [place] [address] September, [facility] [address] [id number] [place] [address] Apr, [facility] [place] [facility] [address] [id number] [place] [address] Apr, [facility] [place] [facility] [address] [id number] [place] [address] Feb, [facility] [place] [facility] [address] [id number] [place] [address] Feb, [facility] [place] [facility] [address] [id number] [place] [address] Oct, [facility] [place] [facility] [address] [id number] [place] [address] September, [facility] [place] [facility] [address] [id number] [place] [address] September, [facility] [place] [facility] [address] [id number] [place] [address] Aug, [facility] [place] [facility] [address] [id number] [place] [address] September, [facility] [address] [facility] [id number] [address] Aug, [facility] [id number] [address] Aug, [facility] [address] [address] Aug, [facility] [address] [address] Jul, [facility] [address] [address] Aug, [facility] [id number] [address] Jul, IMMUNIZATIONS No Known Immunizations SOCIAL HISTORY Never Assessed [place]ASON FOR [place]IT [place] [place] VITAL SIGNS MEDICATIONS No Known Medications RESULTS No Results PROCEDURES No Known procedures INSTRUCTIONS MEDICATIONS ADMINISTERED No Known Medications MEDICAL (GENERAL) HISTORY Type Description Date Medical History attention deficit hyperactivity disorder Medical History bicuspid aortic valve Medical History schizophrenia Medical History dysmenorrhea Medical History Bipolar disorder, unspecified Surgical History No know Surgical history
--- OUTSIDE RECORDS SUMMARY | 2018-12-10 01:20 | XMS REPORT ---
Author Author Migration, Doctor Organization [facility] Address Unknown Phone Unavailable Care Team Providers Care Sticker Machine Operator Name Role Phone Migration, Doctor Unavailable Unavailable PROBLEMS Type Condition ICD9-CM Code BIE41-MY Code Onset Dates Condition Status SNOMED Code Problem Acute non intractable tension-type headache G44.209 Active 456129756 Problem Infection of right ear H66.91 Active [id number] Problem Attention deficit disorder with hyperactivity F90.9 Active 175115121 Problem ODD (oppositional defiant disorder) F91.3 Active 71693629 Problem Encounter for initial prescription of injectable contraceptive Z30.013 Active [id number] ALLERGIES No Information ENCOUNTERS Encounter Location Date Diagnosis [facility] [id number] [place] [id number] Feb, Abscess L02.91 [place] [id number] [place] [address] Jan, [place] [address] [address] Jan, Other specified bacterial agents as the cause of diseases classified elsewhere B96.89 and Acute vaginitis N76.0 [place] [id number] [place] [address] Dec, Vaginal discharge N89.8 and Screening examination for sexually transmitted disease Z11.3 [place] [id number] [place] [address] Nov, Dysuria R30.0 [facility] [id number] [place] [address] Oct, Bedbug bite, initial encounter W57.XXXA ; Insect bite (nonvenomous) of left upper arm, initial encounter S40.862A and Bitten or stung by nonvenomous insect and other nonvenomous arthropods, initial encounter W57.XXXA [facility] [place] [id number] [place] [address] Jul, Seasonal allergic rhinitis, unspecified trigger J30.2 [facility] [place] [id number] [place] [address] Apr, Sore throat J02.9 and Acute nasopharyngitis J00 [address] [address] Apr, [address] [address] Mar, control counseling Z30.09 [facility] [address] [address] Feb, Infection of right ear H66.91 ; Vaginal discharge N89.8 and Sore throat J02.9 [facility] [place] [id number] [place] [id number] Feb, Encounter for Depo-Provera contraception Z30.42 ; Sore throat J02.9 ; Acute allergic rhinitis J30.9 and Acute nasopharyngitis (common cold) J00 [facility] [place] [id number] [place] [address] Dec, Other viral agents as the cause of diseases classified elsewhere B97.89 and Acute upper respiratory infection, unspecified J06.9 [place] [id number] [place] [address] Dec, Vaginal discharge N89.[address] [address] Dec, Routine gynecological examination Z01.419 ; Encounter for counseling regarding contraception Z30.09 and Vaginal discharge N89.8 [facility] [place] [id number] [place] [address] Nov, Encounter for Depo-Provera contraception Z30.42 and Viral gastroenteritis A08.4 [facility] [place] [id number] [place] [address] Nov, Acute nonintractable headache, unspecified headache type R51 and Acute seasonal allergic rhinitis, unspecified trigger J30.2 [facility] [place] [id number] [place] [address] September, Acute non intractable tension-type headache G44.209 [place] [address] [address] September, Urinary frequency R35.0 [place] [address] [address] September, [place] [address] [address] Aug, Urinary frequency R35.0 and Encounter for Depo-Provera contraception Z30.42 [facility] [place] [id number] [place] [address] Jul, Sore throat J02.9 and Strep pharyngitis J02.0 [facility] [place] [id number] [place] [address] May, Encounter for Depo-Provera contraception Z30.42 [place] [id number] [place] [address] Apr, General medical exam Z00.00 and Surveillance for Depo-Provera contraception Z30.42 [place] [id number] [place] [address] Mar, Attention deficit disorder with hyperactivity F90.9 [facility] [place] [id number] [place] [address] Feb, Encounter for Depo-Provera contraception Z30.42 [place] [id number] [place] [address] Feb, [facility] [address], [place] [address] Jan, Sore throat J02.9 [facility] [address], [place] [address] 07 Jan, 2016 [facility] [address], [place] [address] Dec, [place] [id number] [place] [address] Dec, Encounter for Depo-Provera contraception Z30.42 [place] [id number] [place] [address] Nov, Recent urinary tract infection Z87.440 and Urinary frequency R35.0 [place] [id number] [place] [address] Nov, [place] [id number] [place] [address] Oct, [place] [id number] [place] [address] September, Attention deficit disorder with hyperactivity F90.9 and ODD (oppositional defiant disorder) F91.3 [place] [address], [place] [address] September, Routine gynecological examination Z01.419 ; Encounter for counseling regarding contraception Z30.9 ; Encounter for initial prescription of injectable contraceptive Z30.013 and Encounter for Depo-Provera contraception Z30.42 [facility] [address], [place] [address] Aug, Migraine without aura and without status migrainosus, not intractable G43.009 [facility] [address], [place] [address] 08 Aug, 2015 Sore throat J02.9 and Acute streptococcal pharyngitis J02.0 [facility] [id number] [address] Aug, Acute upper respiratory infection, unspecified J06.9 [facility] [id number] [place] [address] Jun, [facility] [address], [place] [address] Jun, Sore throat J02.9 [facility] [id number] [place] [address] May, [facility] [id number] [place] [address] May, [facility] [id number] [place] [address] Apr, [facility] [id number] [place] [address] Mar, [facility] [id number] [place] [address] Mar, Attention deficit disorder with hyperactivity F90.9 and ODD (oppositional defiant disorder) F91.3 [facility] [id number] [place] [address] Mar, [facility] [id number] [place] [address] Feb, [facility] [id number] [place] [address] Jan, [facility] [id number] [place] [address] Jan, Bipolar disorder, unspecified 296.80 ; Attention deficit disorder with hyperactivity 314.01 and Parent-child conflict V61.20 [facility] [address], [place] [address] Dec, [facility] [id number] [place] [address] Dec, Routine child health exam V20.2 ; Dietary counseling and surveillance V65.3 ; Exercise counseling V65.41 ; Contraception management V25.9 and HEP A (ADULT) DX V05.3 [facility] [id number] [place] [address] Nov, Oppositional defiant disorder 313.81 ; Bipolar disorder, unspecified 296.80 ; Anxiety state, unspecified 300.00 ; Parent-child conflict V61.20 and Attention deficit disorder with hyperactivity 314.01 [facility] [id number] [place] [address] Oct, [facility] [id number] [place] [address] Oct, [facility] [id number] [place] [address] Oct, [facility] [id number] [place] [address] September, [facility] [id number] [place] [address] September, [facility] [id number] [place] [address] September, [facility] [address], [place] [address] Aug, [facility] [id number] [place] [address] Aug, [facility] [id number] [place] [address] Jul, [facility] [id number] [place] [address] Jul, [facility] [address], [place] [address] Jul, [facility] [id number] [place] [address] Jul, [facility] [place] [facility] [address] [id number] [place] [address] Jun, [facility] [place] [facility] [address] [id number] [place] [address] Jun, [facility] [place] [facility] [address] [id number] [place] [address] May, [facility] [place] [facility] [address] [id number] [place] [address] May, [facility] [place] [facility] [address] [id number] [place] [address] May, [facility] [place] [facility] [address] [id number] [place] [address] May, [facility] [place] [facility] [address] [id number] [place] [address] May, [facility] [place] [facility] [address] [id number] [address] May, [facility] [place] [facility] [address] [id number], [place] [address] May, [facility] [place] [facility] [address] [id number], [place] [address] May, [facility] [place] [facility] [address] [id number], [place] [address] Mar, [facility] [place] [facility] [address] [id number], [place] [address] Mar, [facility] [place] [facility] [address] [id number] [place] [address] Feb, [facility] [place] [facility] [address] [id number], [place] [address] Feb, [facility] [place] [facility] [address] [id number] [place] [address] Jan, [facility] [place] [facility] [address] [id number] [place] [address] Jan, [facility] [address] [id number] [place] [address] Nov, [facility] [place] [facility] [address] [id number] [place] [address] Nov, [facility] [address] [id number] [place] [address] Nov, [facility] [place] [facility] [address] [id number] [place] [address] Nov, [facility] [address] [id number] [place] [address] September, [facility] [place] [facility] [address] [id number] [place] [address] September, [facility] [address] [id number] [place] [address] Apr, [facility] [place] [facility] [address] [id number] [place] [address] Apr, [facility] [place] [facility] [address] [id number] [place] [address] Feb, [facility] [place] [facility] [address] [id number] [place] [address] Feb, [facility] [place] [facility] [address] [id number] [place] [address] Oct, [facility] [place] [facility] [address] [id number] [place] [address] September, [facility] [place] [facility] [address] [id number] [place] [address] September, [facility] [place] [facility] [address] [id number] [place] [address] Aug, [facility] [place] [facility] [address] [id number] [place] [address] September, [facility] [id number], [place] [address] Aug, [facility] [id number], [place] [address] Aug, [facility] [address], [place] [address] Aug, [facility] [address], [place] [address] Jul, [facility] [address], [place] [address] Aug, [facility] [id number], [place] [address] Jul, IMMUNIZATIONS No Known Immunizations SOCIAL HISTORY [...]
--- OUTSIDE RECORDS SUMMARY | 2018-12-10 01:21 | XMS REPORT ---
Author Author Migration, Doctor Organization [facility] Address Unknown Phone Unavailable Care Team Providers Care Fire Services Plumber Name Role Phone Migration, Doctor Unavailable Unavailable PROBLEMS Type Condition ICD9-CM Code [id number] Code Onset Dates Condition Status SNOMED Code Problem Acute non intractable tension-type headache G44.209 Active 473597163 Problem Infection of right ear H66.91 Active 2892873378062852 Problem Attention deficit disorder with hyperactivity F90.9 Active 877187168 Problem ODD (oppositional defiant disorder) F91.3 Active 71745426 Problem Encounter for initial prescription of injectable contraceptive Z30.013 Active 223242799 ALLERGIES No Information ENCOUNTERS Encounter Location Date Diagnosis [place] [address] [address] Aug, [facility] [address] [address] Feb, Abscess L02.91 [place] [address] [address] Jan, [place] [address] [address] [place] [id number] [place] [address] Jan, Other specified bacterial agents as the cause of diseases classified elsewhere B96.89 and Acute vaginitis N76.0 [place] [address] [address] Dec, Vaginal discharge N89.8 and Screening examination for sexually transmitted disease Z11.3 [place] [address] [address] Nov, Dysuria R30.0 [facility] [address] [place] [id number] [place] [address] Oct, Bedbug bite, initial encounter W57.XXXA ; Insect bite (nonvenomous) of left upper arm, initial encounter S40.862A and Bitten or stung by nonvenomous insect and other nonvenomous arthropods, initial encounter W57.XXXA [facility] [place] [address] [place] [id number] [place] [address] Jul, Seasonal allergic rhinitis, unspecified trigger J30.2 [facility] [address] [address] Apr, Sore throat J02.9 and Acute nasopharyngitis J00 [place] [address] [address] Apr, [address] [address] Mar, control counseling Z30.09 [facility] [address] [address] Feb, Infection of right ear H66.91 ; Vaginal discharge N89.8 and Sore throat J02.9 [facility] [place] [id number] [place] [address] Feb, Encounter for Depo-Provera contraception Z30.42 ; Sore throat J02.9 ; Acute allergic rhinitis J30.9 and Acute nasopharyngitis (common cold) J00 [facility] [place] [id number] [place] [address] Dec, Other viral agents as the cause of diseases classified elsewhere B97.89 and Acute upper respiratory infection, unspecified J06.9 [place] [address] [place] [id number] [place] [address] Dec, Vaginal discharge N89.8 [place] [address] [address] Dec, Routine gynecological examination Z01.419 ; Encounter for counseling regarding contraception Z30.09 and Vaginal discharge N89.8 [facility] [place] [address] [place] [id number] [place] [address] 15 Nov, 2016 Encounter for Depo-Provera contraception Z30.42 and Viral gastroenteritis A08.4 [facility] [place] [address] [address] Nov, Acute nonintractable headache, unspecified headache type R51 and Acute seasonal allergic rhinitis, unspecified trigger J30.2 [facility] [place] [address] [address] September, Acute non intractable tension-type headache G44.209 [place] [address] [address] September, Urinary frequency R35.0 [place] [address] [address] September, [place] [address] [address] Aug, Urinary frequency R35.0 and Encounter for Depo-Provera contraception Z30.42 [facility] [place] [address] [place] [id number] [place] [address] Jul, Sore throat J02.9 and Strep pharyngitis J02.0 [facility] [place] [address] [place] [id number] [place] [address] May, Encounter for Depo-Provera contraception Z30.42 [place] [address] [place] [id number] [place] [address] Apr, General medical exam Z00.00 and Surveillance for Depo-Provera contraception Z30.42 [place] [address] [address] Mar, Attention deficit disorder with hyperactivity F90.9 [facility] [place] [address] [place] [id number] [place] [address] Feb, Encounter for Depo-Provera contraception Z30.42 [place] [address] [address] Feb, [facility] [address] [place] [id number] [place] [address] Jan, Sore throat J02.9 [place] [id number] [place] [address] Jan, [place] [address] [address] Dec, [place] [address] [place] [id number] [place] [address] Dec, Encounter for Depo-Provera contraception Z30.42 [place] [address] [place] [id number] [place] [address] Nov, Recent urinary tract infection Z87.440 and Urinary frequency R35.0 [place] [address] [place] [id number] [place] [address] Nov, [place] [address] [place] [id number] [place] [address] Oct, [place] [address] [place] [id number] [place] [address] September, Attention deficit disorder with hyperactivity F90.9 and ODD (oppositional defiant disorder) F91.3 [place] [address] [place] [address] September, Routine gynecological examination Z01.419 ; Encounter for counseling regarding contraception Z30.9 ; Encounter for initial prescription of injectable contraceptive Z30.013 and Encounter for Depo-Provera contraception Z30.42 [facility] [address] [place] [id number] [place] [address] 13 Aug, 2015 Migraine without aura and without status migrainosus, not intractable G43.009 [facility] [address] [place] [id number] [place] [address] Aug, Sore throat J02.9 and Acute streptococcal pharyngitis J02.0 [facility] [address] [address] Aug, Acute upper respiratory infection, unspecified J06.9 [facility] [place] [address] [address] Jun, [facility] [address] [place] [id number] [place] [address] Jun, Sore throat J02.9 [facility] [place] [address] [place] [address] May, [facility] [place] [address] [place] [id number] [place] [address] May, [facility] [place] [address] [place] [id number] [place] [address] Apr, [facility] [place] [address] [place] [id number] [place] [address] Mar, [facility] [place] [address] [place] [id number] [place] [address] Mar, Attention deficit disorder with hyperactivity F90.9 and ODD (oppositional defiant disorder) F91.3 [facility] [place] [address] [place] [address] Mar, [facility] [place] [address] [place] [address] Feb, [facility] [place] [address] [place] [address] Jan, [facility] [place] [address] [place] [id number] [place] [address] Jan, Bipolar disorder, unspecified 296.80 ; Attention deficit disorder with hyperactivity 314.01 and Parent-child conflict V61.20 [facility] [place] [address] [place] [id number] [place] [address] Dec, [facility] [place] [address] [address] Dec, Routine child health exam V20.2 ; Dietary counseling and surveillance V65.3 ; Exercise counseling V65.41 ; Contraception management V25.9 and HEP A (ADULT) DX V05.3 [facility] [place] [address] [place] [id number] [place] [address] Nov, Oppositional defiant disorder 313.81 ; Bipolar disorder, unspecified 296.80 ; Anxiety state, unspecified 300.00 ; Parent-child conflict V61.20 and Attention deficit disorder with hyperactivity 314.01 [facility] [place] [address] [place] [id number] [place] [address] Oct, [facility] [place] [address] [place] [id number] [place] [address] Oct, [facility] [place] [address] [place] [id number] [place] [address] Oct, [facility] [place] [address] [place] [id number] [place] [address] September, [facility] [place] [address] [place] [id number] [place] [address] September, [facility] [place] [address] [address] September, [facility] [place] [address] [place] [id number] [place] [address] Aug, [facility] [place] [address] [place] [address] Aug, [facility] [place] [address] [place] [id number] [place] [address] Jul, [facility] [place] [address] [address] Jul, [facility] [place] [address] [place] [id number] [place] [address] Jul, [facility] [place] [facility] [address] [id number] [place] [address] Jul, [facility] [place] [facility] [address] [id number] [place] [address] Jun, [facility] [place] [facility] [address] [id number] [place] [address] Jun, [facility] [place] [facility] [address] [id number] [place] [address] May, [facility] [place] [facility] [address] [id number] [place] [address] May, [facility] [place] [facility] [address] [id number] [place] [address] May, [facility] [place] [facility] [address] [id number] [place] [address] May, [facility] [place] [facility] [address] [id number] [address] May, [facility] [place] [facility] [address] [id number] [address] May, [facility] [place] [facility] [address] [id number] [address] May, [facility] [place] [facility] [address] [id number] [address] May, [facility] [place] [facility] [address] [id number] [address] Mar, [facility] [place] [facility] [address] [id number] [place] [address] Mar, [facility] [place] [facility] [address] [id number] [address] Feb, [facility] [place] [facility] [address] [id number] [place] [address] Feb, [facility] [place] [facility] [address] [id number] [place] [address] Jan, [facility] [address] [id number] [place] [address] Jan, [facility] [place] [facility] [address] [id number] [place] [address] Nov, [facility] [place] [facility] [address] [id number] [place] [address] Nov, [facility] [place] [facility] [address] [id number] [place] [address] Nov, [facility] [place] [facility] [address] [id number] [place] [address] Nov, [facility] [place] [facility] [address] [id number] [place] [address] September, [facility] [address] [id number] [place] [address] September, [facility] [address] [id number] [place] [address] Apr, [facility] [place] [facility] [address] [id number] [place] [address] Apr, [facility] [address] [id number] [place] [address] Feb, [facility] [place] [facility] [address] [id number] [place] [address] Feb, [facility] [place] [facility] [address] [id number] [place] [address] Oct, [facility] [place] [facility] [address] [id number] [place] [address] September, [facility] [place] [facility] [address] [id number] [place] [address] September, [facility] [place] [facility] [address] [id number] [place] [address] Aug, [facility] [place] [address] [place] [id number] [address] September, [facility] [place] [address] [place] [id number] [address] Aug, [facility] [place] [address] [address] Aug, [facility] [place] [address] [address] Aug, [facility] [place] [address] [address] Jul, [facility] [place] [address] [place] [id number] [address] Aug, [facility] [place] [address] [place] [id number] [address] Jul, IMMUNIZATIONS No Known Immunizations SOCIAL HISTORY Never Assessed REASON FOR VISIT [place] [place] VITAL SIGNS MEDICATIONS Unknown Medications RESULTS No Results PROCEDURES No Known procedures INSTRUCTIONS MEDICATIONS ADMINISTERED No Known Medications MEDICAL (GENERAL) HISTORY Type Description Date Medical History attention deficit hyperactivity disorder Medical History bicuspid aortic valve Medical History schizophrenia Medical History dysmenorrhea Medical History Bipolar disorder, unspecified Surgical History No know Surgical history
--- OUTSIDE RECORDS SUMMARY | 2018-12-10 01:21 | XMS REPORT ---
Author Author KIM ROMERO [facility] [place] Address [address] [place] [address] Care Team Providers Care Beauty Sales Consultant Name Role Phone KIM ROMERO Unavailable PROBLEMS Type Condition ICD9-CM Code [id number] Code Onset Dates Condition Status SNOMED Code Problem Infection of right ear H66.91 Active 9804186840917509 Problem Acute non intractable tension-type headache G44.209 Active 326555314 Problem Attention deficit disorder with hyperactivity F90.9 Active 637726090 Problem Encounter for initial prescription of injectable contraceptive Z30.013 Active 642585557 Problem ODD (oppositional defiant disorder) F91.3 Active [id number] ALLERGIES Substance Reaction Event Type Date Status Penicillin V Potassium Unknown Drug Allergy Feb, Active ENCOUNTERS Encounter Location Date Diagnosis [facility] [id number] [place] [phone] Feb, Abscess L02.91 [place] [address] [address] Jan, [place] [id number] [place] [phone] Jan, Other specified bacterial agents as the cause of diseases classified elsewhere B96.89 and Acute vaginitis N76.0 [place] [id number] [place] [phone] Dec, Vaginal discharge N89.8 and Screening examination for sexually transmitted disease Z11.3 [place] [id number] [place] [phone] Nov, Dysuria R30.0 [facility] [id number] [place] [phone] Oct, Bedbug bite, initial encounter W57.XXXA ; Insect bite (nonvenomous) of left upper arm, initial encounter S40.862A and Bitten or stung by nonvenomous insect and other nonvenomous arthropods, initial encounter W57.XXXA [facility] [place] [id number] [place] [phone] Jul, Seasonal allergic rhinitis, unspecified trigger J30.2 [facility] [place] [address] [address] Apr, Sore throat J02.9 and Acute nasopharyngitis J00 [place] [address] [address] Apr, [place] [address] [address] Mar, control counseling Z30.09 [facility] [place] [address] [address] Feb, Infection of right ear H66.91 ; Vaginal discharge N89.8 and Sore throat J02.9 [facility] [place] [address] [address] Feb, Encounter for Depo-Provera contraception Z30.42 ; Sore throat J02.9 ; Acute allergic rhinitis J30.9 and Acute nasopharyngitis (common cold) J00 [facility] [place] [id number] [place] [phone] Dec, Other viral agents as the cause of diseases classified elsewhere B97.89 and Acute upper respiratory infection, unspecified J06.9 [place] [id number] [place] [phone] Dec, Vaginal discharge N89.8 [place] [address] [address] Dec, Routine gynecological examination Z01.419 ; Encounter for counseling regarding contraception Z30.09 and Vaginal discharge N89.8 [facility] [id number] [place] [phone] 15 Nov, 2016 Encounter for Depo-Provera contraception Z30.42 and Viral gastroenteritis A08.4 [facility] [address] [id number] [place] [phone] Nov, Acute nonintractable headache, unspecified headache type R51 and Acute seasonal allergic rhinitis, unspecified trigger J30.2 [facility] [address] [address] September, Acute non intractable tension-type headache G44.209 [place] [address] [address] September, Urinary frequency R35.0 [place] [address] [address] September, [place] [address] [address] Aug, Urinary frequency R35.0 and Encounter for Depo-Provera contraception Z30.42 [facility] [place] [address] [address] Jul, Sore throat J02.9 and Strep pharyngitis J02.0 [facility] [place] [id number] [place] [address] May, Encounter for Depo-Provera contraception Z30.42 [place] [id number] [place] [address] Apr, General medical exam Z00.00 and Surveillance for Depo-Provera contraception Z30.42 [place] [address] [address] Mar, Attention deficit disorder with hyperactivity F90.9 [facility] [place] [id number] [place] [phone] Feb, Encounter for Depo-Provera contraception Z30.42 [facility] [place] [id number] [address] Feb, [facility] [id number] [place] [address] Jan, Sore throat J02.9 [facility] [place] [id number] [place] [address] Jan, [facility] [place] [id number] [place] [address] Dec, [place] [id number] [place] [address] Dec, Encounter for Depo-Provera contraception Z30.42 [place] [id number] [place] [address] Nov, Recent urinary tract infection Z87.440 and Urinary frequency R35.0 [place] [id number] [place] [address] Nov, [place] [address] [id number] [place] [phone] Oct, [place] [id number] [place] [address] September, Attention deficit disorder with hyperactivity F90.9 and ODD (oppositional defiant disorder) F91.3 [place] [id number] [place] [address] September, Routine gynecological examination Z01.419 ; Encounter for counseling regarding contraception Z30.9 ; Encounter for initial prescription of injectable contraceptive Z30.013 and Encounter for Depo-Provera contraception Z30.42 [facility] [place] [id number] [place] [phone] Aug, Migraine without aura and without status migrainosus, not intractable G43.009 [facility] [id number] [place] [address] Aug, Sore throat J02.9 and Acute streptococcal pharyngitis J02.0 [facility] [id number] [place] [address] Aug, Acute upper respiratory infection, unspecified J06.9 [facility] [place] [id number] [place] [address] Jun, [facility] [id number] [place] [address] Jun, Sore throat J02.9 [facility] [place] [id number] [place] [address] May, [facility] [place] [id number] [place] [phone] May, [facility] [place] [id number] [place] [address] Apr, [facility] [place] [id number] [place] [address] Mar, [facility] [place] [id number] [place] [address] Mar, Attention deficit disorder with hyperactivity F90.9 and ODD (oppositional defiant disorder) F91.3 [facility] [place] [id number] [place] [address] Mar, [facility] [place] [id number] [place] [address] Feb, [facility] [place] [id number] [place] [address] Jan, [facility] [place] [id number] [place] [address] Jan, Bipolar disorder, unspecified 296.80 ; Attention deficit disorder with hyperactivity 314.01 and Parent-child conflict V61.20 [facility] [place] [id number] [place] [address] Dec, [facility] [place] [address] [address] Dec, Routine child health exam V20.2 ; Dietary counseling and surveillance V65.3 ; Exercise counseling V65.41 ; Contraception management V25.9 and HEP A (ADULT) DX V05.3 [facility] [place] [id number] [place] [address] Nov, Oppositional defiant disorder 313.81 ; Bipolar disorder, unspecified 296.80 ; Anxiety state, unspecified 300.00 ; Parent-child conflict V61.20 and Attention deficit disorder with hyperactivity 314.01 [facility] [place] [id number] [place] [address] Oct, [facility] [place] [id number] [place] [phone] Oct, [facility] [place] [id number] [place] [phone] Oct, [facility] [place] [id number] [place] [phone] September, [facility] [place] [id number] [place] [phone] September, [facility] [place] [id number] [place] [phone] September, [facility] [place] [id number] [place] [phone] Aug, [facility] [place] [id number] [place] [phone] Aug, [facility] [place] [id number] [place] [address] Jul, [facility] [place] [id number] [place] [phone] Jul, [facility] [place] [id number] [place] [phone] Jul, [facility] [place] [facility] [address] [id number] [place] [address] Jul, [facility] [place] [facility] [address] [id number], [place] [address] Jun, [facility] [place] [facility] [address] [facility] [id number] [place] [address] Jun, [facility] [place] [facility] [address] [id number] [place] [address] May, [facility] [place] [facility] [address] [id number] [place] [address] May, [facility] [place] [facility] [address] [facility] [id number] [place] [address] May, [facility] [place] [facility] [address] [facility] [id number], [place] [address] May, [facility] [place] [facility] [address] [facility] [id number], [place] [address] May, [facility] [place] [facility] [address] [facility] [id number], [place] [address] May, [facility] [place] [facility] [address] [facility] [id number], [place] [address] May, [facility] [place] [facility] [address] [facility] [id number], [place] [address] May, [facility] [place] [facility] [address] [id number], [place] [address] Mar, [facility] [place] [facility] [address] [id number], [place] [address] Mar, [facility] [place] [facility] [address] [facility] [id number], [place] [address] Feb, [facility] [place] [facility] [address] [facility] [id number], [place] [address] Feb, [facility] [place] [facility] [address] [id number] [place] [address] Jan, [facility] [place] [facility] [address] [id number] [place] [address] Jan, [facility] [place] [facility] [address] [id number] [place] [address] Nov, [facility] [place] [facility] [address] [id number] [place] [address] Nov, [facility] [place] [facility] [address] [id number] [place] [address] Nov, [facility] [place] [facility] [address] [id number] [place] [address] Nov, [facility] [place] [facility] [address] [id number] [place] [address] September, [facility] [place] [facility] [address] [id number] [place] [address] September, [facility] [place] [facility] [address] [id number] [place] [address] Apr, [facility] [place] [facility] [address] [id number] [place] [address] Apr, [facility] [place] [facility] [address] [id number] [place] [address] Feb, [facility] [place] [facility] [address] [id number] [place] [address] 14 Feb, 2013 [facility] [place] [facility] [address] [id number] [place] [address] Oct, [facility] [place] [facility] [address] [id number] [place] [address] September, [facility] [place] [facility] [address] [id number] [place] [address] September, [facility] [place] [facility] [address] [id number] [place] [address] Aug, [facility] [place] [address] [facility] [id number], [place] [address] September, [facility] [place] [address] [facility] [id number], [place] [address] Aug, [facility] [place] [id number] [address] Aug, [facility] [place] [id number] [address] Aug, [facility] [place] [address] [facility] [id number], [place] [address] Jul, [facility] [place] [id number] [address] Aug, [facility] [place] [id number] [address] Jul, IMMUNIZATIONS No Known Immunizations SOCIAL HISTORY Never Assessed REASON FOR VISIT infected nose ring on left side. was pierced in november...now has a puss pocket on the inside of her left nare. still has nose ring in. reports a lot of pain in th is nare. kbullgracia PLAN OF CARE Activity Details Follow Up prn Reason: VITAL SIGNS Height 63.4 in 2018-03-02 Weight 148.4 lbs 2018-03-02 Temperature 97.8 degrees Fahrenheit 2018-03-02 Heart Rate 80 bpm 2018-03-02 Respiratory Rate 20 2018-03-02 BMI 25.95 kg/m2 2018-03-02 Blood pressure systolic 124 mmHg 2018-03-02 Blood pressure diastolic 80 mmHg 2018-03-02 MEDICATIONS Medication Instructions Dosage Frequency Start Date End Date Duration Status Bactroban Nasal 2 % Nasally Twice a day 1 application 12h 13 Feb, 2018 Feb, 10 days Active RESULTS No Results PROCEDURES Procedure Date Ordered Result Body Site [facility] VISIT ESTABLISHED PATIENT Mar 02, 2018 INSTRUCTIONS MEDICATIONS ADMINISTERED No Known Medications MEDICAL (GENERAL) HISTORY Type Description Date Medical History attention deficit hyperactivity disorder Medical History bicuspid aortic valve Medical History schizophrenia Medical History dysmenorrhea Medical History Bipolar disorder, unspecified Surgical History No know Surgical history
--- OUTSIDE RECORDS SUMMARY | 2018-12-10 01:21 | XMS REPORT ---
Author Author Migration, Doctor Organization [facility] Address Unknown Phone Unavailable Care Team Providers Care Installation Technician Name Role Phone Migration, Doctor Unavailable Unavailable PROBLEMS Type Condition ICD9-CM Code OQU58-JT Code Onset Dates Condition Status SNOMED Code Problem Acute non intractable tension-type headache G44.209 Active 257588035 Problem Infection of right ear H66.91 Active 3188702164850962 Problem Attention deficit disorder with hyperactivity F90.9 Active 167423348 Problem ODD (oppositional defiant disorder) F91.3 Active 77042521 Problem Encounter for initial prescription of injectable contraceptive Z30.013 Active [id number] ALLERGIES No Information ENCOUNTERS Encounter Location Date Diagnosis [facility] [id number] [place] [address] Feb, Abscess L02.91 [place] [id number] [place] [address] Jan, [place] [address] [address] Jan, Other specified bacterial agents as the cause of diseases classified elsewhere B96.89 and Acute vaginitis N76.0 [place] [id number] [place] [address] Dec, Vaginal discharge N89.8 and Screening examination for sexually transmitted disease Z11.3 [place] [id number] [place] [address] Nov, Dysuria R30.0 [facility] IN [facility] [id number] [place] [address] Oct, Bedbug bite, initial encounter W57.XXXA ; Insect bite (nonvenomous) of left upper arm, initial encounter S40.862A and Bitten or stung by nonvenomous insect and other nonvenomous arthropods, initial encounter W57.XXXA [facility] [place] [id number] [place] [address] Jul, Seasonal allergic rhinitis, unspecified trigger J30.2 [facility] [place] [id number] [place] [address] Apr, Sore throat J02.9 and Acute nasopharyngitis J00 [address] [address] Apr, [address] [address] Mar, control counseling Z30.09 [facility] IN [address] [address] Feb, Infection of right ear H66.91 ; Vaginal discharge N89.8 and Sore throat J02.9 [facility] [place] [id number] [place] [address] Feb, Encounter for Depo-Provera contraception Z30.42 ; Sore throat J02.9 ; Acute allergic rhinitis J30.9 and Acute nasopharyngitis (common cold) J00 [facility] [place] [id number] [place] [address] Dec, Other viral agents as the cause of diseases classified elsewhere B97.89 and Acute upper respiratory infection, unspecified J06.9 [place] [id number] [place] [address] Dec, Vaginal discharge N89.[address] [address] Dec, Routine gynecological examination Z01.419 ; Encounter for counseling regarding contraception Z30.09 and Vaginal discharge N89.8 [facility] [place] [id number] [place] [address] Nov, Encounter for Depo-Provera contraception Z30.42 and Viral gastroenteritis A08.4 [facility] [place] [id number] [place] [address] Nov, Acute nonintractable headache, unspecified headache type R51 and Acute seasonal allergic rhinitis, unspecified trigger J30.2 [facility] [place] [id number] [place] [address] September, Acute non intractable tension-type headache G44.209 [place] [address] [address] September, Urinary frequency R35.0 [place] [address] [address] September, [place] [address] [address] Aug, Urinary frequency R35.0 and Encounter for Depo-Provera contraception Z30.42 [facility] [place] [id number] [place] [address] Jul, Sore throat J02.9 and Strep pharyngitis J02.0 [facility] [place] [id number] [place] [address] May, Encounter for Depo-Provera contraception Z30.42 [place] [id number] [place] [address] Apr, General medical exam Z00.00 and Surveillance for Depo-Provera contraception Z30.42 [place] [id number] [place] [address] Mar, Attention deficit disorder with hyperactivity F90.9 [facility] [place] [id number] [place] [address] Feb, Encounter for Depo-Provera contraception Z30.42 [place] [id number] [place] [address] Feb, [facility] [address] [address] Jan, Sore throat J02.9 [facility] [address] [address] 07 Jan, 2016 [facility] [address] [address] Dec, [place] [id number] [place] [address] Dec, Encounter for Depo-Provera contraception Z30.42 [place] [id number] [place] [address] Nov, Recent urinary tract infection Z87.440 and Urinary frequency R35.0 [place] [id number] [place] [address] Nov, [place] [id number] [place] [address] Oct, [place] [id number] [place] [address] September, Attention deficit disorder with hyperactivity F90.9 and ODD (oppositional defiant disorder) F91.3 [place] [address] [address] September, Routine gynecological examination Z01.419 ; Encounter for counseling regarding contraception Z30.9 ; Encounter for initial prescription of injectable contraceptive Z30.013 and Encounter for Depo-Provera contraception Z30.42 [facility] [address] [address] Aug, Migraine without aura and without status migrainosus, not intractable G43.009 [facility] [address] [address] 08 Aug, 2015 Sore throat J02.9 and Acute streptococcal pharyngitis J02.0 [facility] [id number] [address] Aug, Acute upper respiratory infection, unspecified J06.9 [facility] [id number] [place] [address] Jun, [facility] [address] [address] Jun, Sore throat J02.9 [facility] [id number] [place] [address] May, [facility] [id number] [place] [address] May, [facility] [id number] [place] [address] Apr, [facility] [id number] [place] [address] Mar, [facility] [id number] [place] [address] Mar, Attention deficit disorder with hyperactivity F90.9 and ODD (oppositional defiant disorder) F91.3 [facility] [id number] [place] [address] Mar, [facility] [address] [place] [address] Feb, [facility] [id number] [place] [address] Jan, [facility] [id number] [place] [address] Jan, Bipolar disorder, unspecified 296.80 ; Attention deficit disorder with hyperactivity 314.01 and Parent-child conflict V61.20 [facility] [address] [address] Dec, [facility] [id number] [place] [address] Dec, Routine child health exam V20.2 ; Dietary counseling and surveillance V65.3 ; Exercise counseling V65.41 ; Contraception management V25.9 and HEP A (ADULT) DX V05.3 [facility] [address] [place] [address] Nov, Oppositional defiant disorder 313.81 ; Bipolar disorder, unspecified 296.80 ; Anxiety state, unspecified 300.00 ; Parent-child conflict V61.20 and Attention deficit disorder with hyperactivity 314.01 [facility] [id number] [place] [address] Oct, [facility] [id number] [place] [address] Oct, [facility] [id number] [place] [address] Oct, [facility] [id number] [place] [address] September, [facility] [id number] [place] [address] September, [facility] [id number] [place] [address] September, [facility] [address] [address] Aug, [facility] [id number] [place] [address] Aug, [facility] [address] [place] [address] Jul, [facility] [id number] [place] [address] Jul, [facility] [address] [address] Jul, [facility] [address] [place] [address] Jul, [facility] [place] [facility] [address] [id number] [place] [address] Jun, [facility] [place] [facility] [address] [id number] [place] [address] Jun, [facility] [place] [facility] [address] [id number] [place] [address] May, [facility] [place] [facility] [address] [id number] [place] [address] May, [facility] [place] [facility] [address] [id number] [place] [address] May, [facility] [place] [facility] [address] [id number] [place] [address] May, [facility] [place] [facility] [address] [id number] [place] [address] May, [facility] [place] [facility] [address] [id number], [place] [address] May, [facility] [place] [facility] [address] [id number], [place] [address] May, [facility] [place] [facility] [address] [id number], [place] [address] May, [facility] [place] [facility] [address] [id number], [place] [address] Mar, [facility] [place] [facility] [address] [id number], [place] [address] Mar, [facility] [place] [facility] [address] [id number] [place] [address] Feb, [facility] [place] [facility] [address] [id number], [place] [address] Feb, [facility] [place] [facility] [address] [id number] [place] [address] Jan, [facility] [place] [facility] [address] [id number] [place] [address] Jan, [facility] [address] [id number] [place] [address] Nov, [facility] [place] [facility] [address] [id number] [place] [address] Nov, [facility] [address] [id number] [place] [address] Nov, [facility] [place] [facility] [address] [id number] [place] [address] Nov, [facility] [address] [id number] [place] [address] September, [facility] [place] [facility] [address] [id number] [place] [address] September, [facility] [address] [id number] [place] [address] Apr, [facility] [place] [facility] [address] [id number] [place] [address] Apr, [facility] [place] [facility] [address] [id number] [place] [address] Feb, [facility] [place] [facility] [address] [id number] [place] [address] Feb, [facility] [place] [facility] [address] [id number] [place] [address] Oct, [facility] [place] [facility] [address] [id number] [place] [address] September, [facility] [place] [facility] [address] [id number] [place] [address] September, [facility] [place] [facility] [address] [id number] [place] [address] Aug, [facility] [place] [facility] [address] [id number] [place] [address] September, [facility] [address] [facility] [id number], [place] [address] Aug, [facility] [id number] [address] Aug, [facility] [id number] [address] Aug, [facility] [id number] [address] Jul, [facility] [id number] [address] Aug, [facility] [id number] [address] Jul, IMMUNIZATIONS No Known Immunizations SOCIAL HISTORY Never Assessed REASON FOR VISIT EMR-[facility] [place] PLAN OF CARE VITAL SIGNS MEDICATIONS Medication Instructions Dosage Frequency Start Date End Date Duration Status Abilify 10 mg 1 tablet by Oral route 1 time per day take at bedtime May, Active Vyvanse 30 mg 1 capsule by Oral route 1 time per day For ADHD Jul, Active RESULTS No Results PROCEDURES No Known procedures INSTRUCTIONS MEDICATIONS ADMINISTERED No Known Medications MEDICAL (GENERAL) HISTORY Type Description Date Medical History attention deficit hyperactivity disorder Medical History bicuspid aortic valve Medical History schizophrenia Medical History dysmenorrhea Medical History Bipolar disorder, unspecified Surgical History No know Surgical history
--- OUTSIDE RECORDS SUMMARY | 2018-12-10 01:22 | XMS REPORT ---
Author Author JAXON BARRETT Organization [facility] Address [address] [place] [address] Care Team Providers Care Shaper Machine Hand Name Role Phone BARRETT COATES Unavailable PROBLEMS Type Condition ICD9-CM Code EEN59-OX Code Onset Dates Condition Status SNOMED Code Problem Infection of right ear H66.91 Active 3400737150164987 Problem Acute non intractable tension-type headache G44.209 Active 038704962 Problem Attention deficit disorder with hyperactivity F90.9 Active 504916558 Problem Bipolar disorder, unspecified 296.80 Active 55577587 Problem Encounter for initial prescription of injectable contraceptive Z30.013 Active 970998965 Problem ODD (oppositional defiant disorder) F91.3 Active 79803096 ALLERGIES No Information ENCOUNTERS Encounter Location Date Diagnosis [facility] [id number] [place] [address] Jan, [place] [address] [address] Jan, Other specified bacterial agents as the cause of diseases classified elsewhere B96.89 and Acute vaginitis N76.0 [place] [id number] [place] [address] Dec, Vaginal discharge N89.8 and Screening examination for sexually transmitted disease Z11.3 [facility] [id number] [place] [address] Nov, Dysuria R30.0 [facility] [id number] [place] [address] Oct, Bedbug bite, initial encounter W57.XXXA ; Insect bite (nonvenomous) of left upper arm, initial encounter S40.862A and Bitten or stung by nonvenomous insect and other nonvenomous arthropods, initial encounter W57.XXXA [facility] [place] [id number] [place] [address] Jul, Seasonal allergic rhinitis, unspecified trigger J30.2 [facility] [place] [id number] [place] [address] Apr, Sore throat J02.9 and Acute nasopharyngitis [address] [place] [id number] [place] [address] Apr, [place] [id number] [place] [address] Mar, control counseling Z30.09 [facility] [place] [id number] [place] [address] Feb, Infection of right ear H66.91 ; Vaginal discharge N89.8 and Sore throat J02.9 [facility] [place] [id number] [place] [address] Feb, Encounter for Depo-Provera contraception Z30.42 ; Sore throat J02.9 ; Acute allergic rhinitis J30.9 and Acute nasopharyngitis (common cold) J00 [facility] [place] [id number] [place] [address] Dec, Other viral agents as the cause of diseases classified elsewhere B97.89 and Acute upper respiratory infection, unspecified J06.9 [place] [id number] [place] [address] Dec, Vaginal discharge N89.8 [place] [id number] [place] [address] Dec, Routine gynecological examination Z01.419 ; Encounter for counseling regarding contraception Z30.09 and Vaginal discharge N89.8 [facility] [place] [id number] [place] [address] Nov, Encounter for Depo-Provera contraception Z30.42 and Viral gastroenteritis A08.4 [facility] [id number] [place] [address] Nov, Acute nonintractable headache, unspecified headache type R51 and Acute seasonal allergic rhinitis, unspecified trigger J30.2 [facility] [id number] [place] [address] September, Acute non intractable tension-type headache G44.209 [place] [id number] [place] [address] September, Urinary frequency R35.0 [place] [address] [address] September, [place] [id number] [place] [address] Aug, Urinary frequency R35.0 and Encounter for Depo-Provera contraception Z30.42 [facility] [place] [id number] [place] [address] Jul, Sore throat J02.9 and Strep pharyngitis J02.0 [facility] [place] [id number] [place] [address] May, Encounter for Depo-Provera contraception Z30.42 [place] [id number] [place] [address] Apr, General medical exam Z00.00 and Surveillance for Depo-Provera contraception Z30.42 [place] [id number] [place] [address] Mar, Attention deficit disorder with hyperactivity F90.9 [facility] [place] [id number] [place] [address] Feb, Encounter for Depo-Provera contraception Z30.42 [place] [id number] [place] [address] Feb, [facility] [address] [address] Jan, Sore throat J02.9 [place] [id number] [place] [address] Jan, [place] [id number] [place] [address] Dec, [place] [id number] [place] [address] Dec, Encounter for Depo-Provera contraception Z30.42 [place] [id number] [place] [address] Nov, Recent urinary tract infection Z87.440 and Urinary frequency R35.0 [place] [id number] [place] [address] Nov, [place] [id number] [place] [address] Oct, [place] [id number] [place] [address] September, Attention deficit disorder with hyperactivity F90.9 and ODD (oppositional defiant disorder) F91.3 [place] [address] [address] September, Routine gynecological examination Z01.419 ; Encounter for counseling regarding contraception Z30.9 ; Encounter for initial prescription of injectable contraceptive Z30.013 and Encounter for Depo-Provera contraception Z30.42 [facility] [id number] [place] [address] 13 Aug, 2015 Migraine without aura and without status migrainosus, not intractable G43.009 [facility] [address] [address] 08 Aug, 2015 Sore throat J02.9 and Acute streptococcal pharyngitis J02.0 [facility] [id number] [address] Aug, Acute upper respiratory infection, unspecified J06.9 [facility] [address] [address] Jun, [facility] [address] [address] Jun, Sore throat J02.9 [facility] [id number] [place] [address] May, [facility] [id number] [place] [address] May, [facility] [id number] [place] [address] Apr, [facility] [id number] [place] [address] Mar, [facility] [id number] [place] [address] Mar, Attention deficit disorder with hyperactivity F90.9 and ODD (oppositional defiant disorder) F91.3 [facility] [id number] [place] [address] Mar, [facility] [address] [address] Feb, [facility] [id number] [place] [address] Jan, [facility] [address] [address] Jan, Bipolar disorder, unspecified 296.80 ; Attention deficit disorder with hyperactivity 314.01 and Parent-child conflict V61.20 [facility] [address] [address] Dec, [facility] [id number] [place] [address] Dec, Routine child health exam V20.2 ; Dietary counseling and surveillance V65.3 ; Exercise counseling V65.41 ; Contraception management V25.9 and HEP A (ADULT) DX V05.3 [facility] [id number] [place] [address] Nov, Oppositional defiant disorder 313.81 ; Bipolar disorder, unspecified 296.80 ; Anxiety state, unspecified 300.00 ; Parent-child conflict V61.20 and Attention deficit disorder with hyperactivity 314.01 [facility] [id number] [place] [address] Oct, [facility] [id number] [place] [address] Oct, [facility] [id number] [place] [address] Oct, [facility] [id number] [place] [address] September, [facility] [id number] [place] [address] September, [facility] [id number] [place] [address] September, [facility] [id number] [place] [address] Aug, [facility] [id number] [place] [address] Aug, [facility] [id number] [place] [address] Jul, [facility] [id number] [place] [address] Jul, [facility] [id number] [place] [address] Jul, [facility] [id number] [place] [address] Jul, [facility] [place] [facility] [address] [id number] [place] [address] Jun, [facility] [place] [facility] [address] [id number] [place] [address] Jun, [facility] [place] [facility] [address] [facility] [id number] [place] [address] May, [facility] [place] [facility] [address] [id number] [address] May, [facility] [place] [facility] [address] [id number] [place] [address] May, [facility] [place] [facility] [address] [facility] [id number] [address] May, [facility] [place] [facility] [address] [facility] [id number] [address] May, [facility] [place] [facility] [address] [id number][place] [address] May, [facility] [place] [facility] [address] [id number][place] [address] May, [facility] [place] [facility] [address] [id number], [place] [address] May, [facility] [place] [facility] [address] [id number], [place] [address] Mar, [facility] [place] [facility] [address] [id number][place] [address] Mar, [facility] [place] [facility] [address] [id number], [place] [address] Feb, [facility] [place] [facility] [address] [id number], [place] [address] Feb, [facility] [place] [facility] [address] [id number], [place] [address] Jan, [facility] [place] [facility] [address] [id number] [place] [address] Jan, [facility] [address] [id number] [place] [address] Nov, [facility] [address] [id number] [place] [address] Nov, [facility] [address] [id number] [place] [address] Nov, [facility] [address] [id number] [place] [address] Nov, [facility] [address] [id number] [place] [address] September, [facility] [address] [id number] [place] [address] September, [facility] [address] [id number] [place] [address] Apr, [facility] [address] [id number] [place] [address] Apr, [facility] [address] [id number] [place] [address] Feb, [facility] [address] [id number] [place] [address] Feb, [facility] [address] [id number] [place] [address] Oct, [facility] [address] [id number] [place] [address] September, [facility] [address] [id number] [place] [address] September, [facility] [address] [id number] [place] [address] Aug, [facility] [address] [id number] [place] [address] September, [facility] [address] [facility] [id number], [place] [address] Aug, [facility] [id number] [address] Aug, [facility] [id number] [address] Aug, [facility] [address] [address] Jul, [facility] [address] [address] Aug, [facility] [address], [place] [address] Jul, IMMUNIZATIONS No Known Immunizations SOCIAL HISTORY Never Assessed REASON FOR VISIT PA Nuvaring PLAN OF CARE VITAL SIGNS MEDICATIONS Unknown Medications RESULTS No Results PROCEDURES No Known procedures INSTRUCTIONS MEDICATIONS ADMINISTERED No Known Medications MEDICAL (GENERAL) HISTORY Type Description Date Medical History attention deficit hyperactivity disorder Medical History bicuspid aortic valve Medical History schizophrenia Medical History dysmenorrhea
--- OUTSIDE RECORDS SUMMARY | 2018-12-10 01:22 | XMS REPORT ---
Author Author ALEIDA GLYNN [facility] Address [address] [place] [address] Care Team Providers Care Bootmaker Hand Name Role Phone ALEIDA GLYNN Unavailable PROBLEMS Type Condition ICD9-CM Code [id number] Code Onset Dates Condition Status SNOMED Code Problem Infection of right ear H66.91 Active 3839391860002811 Problem Acute non intractable tension-type headache G44.209 Active 067004312 Problem Attention deficit disorder with hyperactivity F90.9 Active 907780605 Problem Bipolar disorder, unspecified 296.80 Active 89152719 Problem Encounter for initial prescription of injectable contraceptive Z30.013 Active 918145061 Problem ODD (oppositional defiant disorder) F91.3 Active 19779782 ALLERGIES Substance Reaction Event Type Date Status Penicillin V Potassium Unknown Drug Allergy Dec, Active ENCOUNTERS Encounter Location Date Diagnosis [facility] [id number] [place] [address] Jan, [place] [id number] [place] [address] Jan, Other specified bacterial agents as the cause of diseases classified elsewhere B96.89 and Acute vaginitis N76.0 [facility] [id number] [place] [address] Dec, Vaginal discharge N89.8 and Screening examination for sexually transmitted disease Z11.3 [facility] [id number] [place] [address] Nov, Dysuria R30.0 [facility] [id number] [place] [address] Oct, Bedbug bite, initial encounter W57.XXXA ; Insect bite (nonvenomous) of left upper arm, initial encounter S40.862A and Bitten or stung by nonvenomous insect and other nonvenomous arthropods, initial encounter W57.XXXA [facility] [place] [id number] [place] [address] Jul, Seasonal allergic rhinitis, unspecified trigger J30.2 [facility] [place] [id number] [place] [address] Apr, Sore throat J02.9 and Acute nasopharyngitis J00 [place] [address] [address] Apr, [address] [address] Mar, control counseling Z30.09 [facility] [address] [address] Feb, Infection of right ear H66.91 ; Vaginal discharge N89.8 and Sore throat J02.9 [facility] [place] [id number] [place] [address] Feb, Encounter for Depo-Provera contraception Z30.42 ; Sore throat J02.9 ; Acute allergic rhinitis J30.9 and Acute nasopharyngitis (common cold) J00 [facility] [place] [id number] [place] [address] Dec, Other viral agents as the cause of diseases classified elsewhere B97.89 and Acute upper respiratory infection, unspecified J06.9 [place] [id number] [place] [address] Dec, Vaginal discharge N89.8 [place] [id number] [place] [address] Dec, Routine gynecological examination Z01.419 ; Encounter for counseling regarding contraception Z30.09 and Vaginal discharge N89.8 [facility] [place] [id number] [place] [address] 15 Nov, 2016 Encounter for Depo-Provera contraception Z30.42 and Viral gastroenteritis A08.4 [facility] [id number] [place] [address] Nov, Acute nonintractable headache, unspecified headache type R51 and Acute seasonal allergic rhinitis, unspecified trigger J30.2 [facility] [id number] [place] [address] September, Acute non intractable tension-type headache G44.209 [place] [id number] [place] [address] September, Urinary frequency R35.0 [place] [address] [address] September, [place] [id number] [place] [address] Aug, Urinary frequency R35.0 and Encounter for Depo-Provera contraception Z30.42 [facility] [id number] [place] [address] Jul, Sore throat J02.9 and Strep pharyngitis J02.0 [facility] [id number] [place] [address] May, Encounter for Depo-Provera contraception Z30.42 [place] [id number] [place] [address] Apr, General medical exam Z00.00 and Surveillance for Depo-Provera contraception Z30.42 [place] [id number] [place] [address] Mar, Attention deficit disorder with hyperactivity F90.9 [facility] [id number] [place] [address] Feb, Encounter for Depo-Provera contraception Z30.42 [place] [address] [place] [address] Feb, [facility] [id number] [place] [address] Jan, Sore throat J02.9 [facility] [id number] [place] [address] Jan, [place] [address] [address] Dec, [place] [address] [address] Dec, Encounter for Depo-Provera contraception Z30.42 [place] [address] [address] Nov, Recent urinary tract infection Z87.440 and Urinary frequency R35.0 [place] [address] [address] Nov, [place] [id number] [place] [address] Oct, [place] [address] [address] September, Attention deficit disorder with hyperactivity F90.9 and ODD (oppositional defiant disorder) F91.3 [place] [id number] [place] [address] September, Routine gynecological examination Z01.419 ; Encounter for counseling regarding contraception Z30.9 ; Encounter for initial prescription of injectable contraceptive Z30.013 and Encounter for Depo-Provera contraception Z30.42 [facility] [id number] [place] [address] 13 Aug, 2015 Migraine without aura and without status migrainosus, not intractable G43.009 [facility] [id number] [place] [address] 08 Aug, 2015 Sore throat J02.9 and Acute streptococcal pharyngitis J02.0 [facility] [address] [address] Aug, Acute upper respiratory infection, unspecified J06.9 [facility] [address] [address] Jun, [facility] [address] [place] [address] Jun, Sore throat J02.9 [facility] [address] [address] May, [facility] [id number] [place] [address] May, [facility] [id number] [place] [address] Apr, [facility] [id number] [place] [address] Mar, [facility] [id number] [place] [address] Mar, Attention deficit disorder with hyperactivity F90.9 and ODD (oppositional defiant disorder) F91.3 [facility] [address] [address] Mar, [facility] [id number] [place] [address] Feb, [facility] [address] [address] Jan, [facility] [id number] [place] [address] Jan, Bipolar disorder, unspecified 296.80 ; Attention deficit disorder with hyperactivity 314.01 and Parent-child conflict V61.20 [facility] [address] [address] Dec, [facility] [id number] [place] [address] Dec, Routine child health exam V20.2 ; Dietary counseling and surveillance V65.3 ; Exercise counseling V65.41 ; Contraception management V25.9 and HEP A (ADULT) DX V05.3 [facility] [id number] [place] [address] Nov, Oppositional defiant disorder 313.81 ; Bipolar disorder, unspecified 296.80 ; Anxiety state, unspecified 300.00 ; Parent-child conflict V61.20 and Attention deficit disorder with hyperactivity 314.01 [facility] [id number] [place] [address] Oct, [facility] [id number] [place] [address] Oct, [facility] [id number] [place] [address] Oct, [facility] [id number] [place] [address] September, [facility] [id number] [place] [address] September, [facility] [id number] [place] [address] September, [facility] [id number] [place] [address] Aug, [facility] [id number] [place] [address] Aug, [facility] [id number] [place] [address] Jul, [facility] [id number] [place] [address] Jul, [facility] [id number] [place] [address] Jul, [facility] [place] [facility] [address] [id number] [place] [address] Jul, [facility] [place] [facility] [address] [id number] [place] [address] Jun, [facility] [place] [facility] [address] [id number] [place] [address] Jun, [facility] [place] [facility] [address] [id number] [place] [address] May, [facility] [place] [facility] [address] [id number] [place] [address] May, [facility] [place] [facility] [address] [id number] [place] [address] May, [facility] [place] [facility] [address] [id number] [place] [address] May, [facility] [place] [facility] [address] [id number] [place] [address] May, [facility] [place] [facility] [address] [id number] [place] [address] May, [facility] [place] [facility] [address] [id number] [place] [address] May, [facility] [place] [facility] [address] [id number] [place] [address] May, [facility] [place] [facility] [address] [id number] [place] [address] Mar, [facility] [place] [facility] [address] [id number] [place] [address] Mar, [facility] [place] [facility] [address] [id number] [place] [address] Feb, [facility] [place] [facility] [address] [id number] [place] [address] Feb, [facility] [place] [facility] [address] [id number] [place] [address] Jan, [facility] [address] [id number] [place] [address] Jan, [facility] [place] [facility] [address] [id number] [place] [address] Nov, [facility] [place] [facility] [address] [id number] [place] [address] Nov, [facility] [place] [facility] [address] [id number] [place] [address] Nov, [facility] [place] [facility] [address] [id number] [place] [address] Nov, [facility] [place] [facility] [address] [id number] [place] [address] September, [facility] [place] [facility] [address] [id number] [place] [address] September, [facility] [place] [facility] [address] [id number] [place] [address] Apr, [facility] [place] [facility] [address] [id number] [place] [address] Apr, [facility] [place] [facility] [address] [id number] [place] [address] Feb, [facility] [place] [facility] [address] [id number], [place] [address] Feb, [facility] [place] [facility] [address] [id number], [place] [address] Oct, [facility] [place] [facility] [address] [id number] [place] [address] September, [facility] [place] [facility] [address] [id number] [place] [address] September, [facility] [place] [facility] [address] [id number] [place] [address] Aug, [facility] [place] [facility] [address] [facility] [id number], [place] [address] September, [facility] [address] [facility] [id number], [place] [address] Aug, [facility] [id number] [address] Aug, [facility] [address] [facility] [id number], [place] [address] Aug, [facility] [id number] [address] Jul, [facility] [id number] [address] Aug, [facility] [id number] [address] Jul, IMMUNIZATIONS No Known Immunizations SOCIAL HISTORY Never Assessed REASON FOR VISIT Yeast infection, possible. BIJAN Owens PLAN OF CARE Activity Details Follow Up prn with persistent s/s Reason: VITAL SIGNS Height 63.4 in 2018-01-16 Weight 148.2 lbs 2018-01-16 Temperature 98.0 degrees Fahrenheit 2018-01-16 Heart Rate 77 bpm 2018-01-16 Respiratory Rate 20 2018-01-16 BMI 25.92 kg/m2 2018-01-16 Blood pressure systolic 128 mmHg 2018-01-16 Blood pressure diastolic 82 mmHg 2018-01-16 MEDICATIONS Medication Instructions Dosage Frequency Start Date End Date Duration Status NuvaRing 0.12-0.015 MG/24HR Vaginal Place in vagina for 3 weeks, remove for one week 1 ring Mar, 30 day(s) Active Metronidazole 500 mg Orally 2 times a day 1 tablet 12h Dec, Jan, 10 day(s) Active Triamcinolone Acetonide 0.1 % Externally Twice a day 1 application to affected area 12h Oct, 7 days Active RESULTS Name Result Date Reference Range TRICHOMONAS (IN HOUSE) 2018-01-16 TRICHOMONAS Negative Control + Lot # [id number] Exp date 11/2018 BACTERIAL VAGINOSIS (IN HOUSE) 2018-01-16 RESULTS Negative Control + Lot # [id number] Exp date 07/2018 GC/CHLAM PROBE (STATE) 2018-01-16 CHLAMYDIA neg GC neg PROCEDURES Procedure Date Ordered Result Body Site Bacterial Vaginosis In House Jan 16, 2018 No Charge Jan 16, 2018 [facility] VISIT ESTABLISHED PATIENT Jan 16, 2018 INSTRUCTIONS MEDICATIONS ADMINISTERED No Known Medications MEDICAL (GENERAL) HISTORY Type Description Date Medical History attention deficit hyperactivity disorder Medical History bicuspid aortic valve Medical History schizophrenia Medical History dysmenorrhea
--- OUTSIDE RECORDS SUMMARY | 2018-12-10 01:23 | XMS REPORT ---
Author Author MATTIE LAU [facility] Address [address] [place] [address] Care Team Providers Care Security Management Specialist Name Role Phone MATTIE LAU Unavailable PROBLEMS Type Condition ICD9-CM Code INE52-FI Code Onset Dates Condition Status SNOMED Code Problem Infection of right ear H66.91 Active 2424704670647682 Problem Acute non intractable tension-type headache G44.209 Active 150685033 Problem Attention deficit disorder with hyperactivity F90.9 Active 234329148 Problem Bipolar disorder, unspecified 296.80 Active 82462700 Problem Encounter for initial prescription of injectable contraceptive Z30.013 Active 766893224 Problem ODD (oppositional defiant disorder) F91.3 Active 42974730 ALLERGIES Substance Reaction Event Type Date Status Penicillin V Potassium Unknown Drug Allergy Jul, Active ENCOUNTERS Encounter Location Date Diagnosis [facility] [id number] [place] [address] Nov, Dysuria R30.0 [facility] [id number] [place] [address] Oct, Bedbug bite, initial encounter W57.XXXA ; Insect bite (nonvenomous) of left upper arm, initial encounter S40.862A and Bitten or stung by nonvenomous insect and other nonvenomous arthropods, initial encounter W57.XXXA [facility] [id number] [place] [address] Jul, Seasonal allergic rhinitis, unspecified trigger J30.2 [facility] [id number] [place] [address] Apr, Sore throat J02.9 and Acute nasopharyngitis J00 [facility] [id number] [place] [address] Apr, [place] [id number] [place] [address] Mar, control counseling Z30.09 [facility] [place] [id number] [place] [address] Feb, Infection of right ear H66.91 ; Vaginal discharge N89.8 and Sore throat J02.9 [facility] [place] [address] [address] Feb, Encounter for Depo-Provera contraception Z30.42 ; Sore throat J02.9 ; Acute allergic rhinitis J30.9 and Acute nasopharyngitis (common cold) J00 [facility] [place] [id number] [place] [address] Dec, Other viral agents as the cause of diseases classified elsewhere B97.89 and Acute upper respiratory infection, unspecified J06.9 [place] [id number] [place] [address] Dec, Vaginal discharge N89.8 [place] [address] [address] 16 Dec, 2016 Routine gynecological examination Z01.419 ; Encounter for counseling regarding contraception Z30.09 and Vaginal discharge N89.8 [facility] [place] [id number] [place] [address] Nov, Encounter for Depo-Provera contraception Z30.42 and Viral gastroenteritis A08.4 [facility] [place] [id number] [place] [address] Nov, Acute nonintractable headache, unspecified headache type R51 and Acute seasonal allergic rhinitis, unspecified trigger J30.2 [facility] [place] [id number] [place] [address] September, Acute non intractable tension-type headache G44.209 [place] [id number] [place] [address] September, Urinary frequency R35.0 [facility] [id number] [place] [address] September, [facility] [id number] [place] [address] Aug, Urinary frequency R35.0 and Encounter for Depo-Provera contraception Z30.42 [facility] [id number] [place] [address] Jul, Sore throat J02.9 and Strep pharyngitis J02.0 [facility] [id number] [place] [address] May, Encounter for Depo-Provera contraception Z30.42 [place] [id number] [place] [address] Apr, General medical exam Z00.00 and Surveillance for Depo-Provera contraception Z30.42 [facility] [id number] [place] [address] Mar, Attention deficit disorder with hyperactivity F90.9 [facility] [id number] [place] [address] Feb, Encounter for Depo-Provera contraception Z30.42 [facility] [id number] [place] [address] Feb, [facility] [id number] [place] [address] Jan, Sore throat J02.9 [facility] [id number] [place] [address] Jan, [facility] [id number] [place] [address] Dec, [facility] [id number] [place] [address] Dec, Encounter for Depo-Provera contraception Z30.42 [place] [id number] [place] [address] Nov, Recent urinary tract infection Z87.440 and Urinary frequency R35.0 [place] [address] [address] Nov, [place] [address] [address] Oct, [place] [id number] [place] [address] September, Attention deficit disorder with hyperactivity F90.9 and ODD (oppositional defiant disorder) F91.3 [place] [id number] [place] [address] September, Routine gynecological examination Z01.419 ; Encounter for counseling regarding contraception Z30.9 ; Encounter for initial prescription of injectable contraceptive Z30.013 and Encounter for Depo-Provera contraception Z30.42 [facility] [place] [id number] [place] [address] Aug, Migraine without aura and without status migrainosus, not intractable G43.009 [facility] [place] [id number] [place] [address] Aug, Sore throat J02.9 and Acute streptococcal pharyngitis J02.0 [facility] [id number] [place] [address] Aug, Acute upper respiratory infection, unspecified J06.9 [place] [id number] [place] [address] Jun, [facility] [id number] [place] [address] Jun, Sore throat J02.9 [place] [address] [place] [address] May, [facility] [id number] [place] [address] May, [facility] [id number] [place] [address] Apr, [place] [id number] [place] [address] Mar, [place] [address] [address] Mar, Attention deficit disorder with hyperactivity F90.9 and ODD (oppositional defiant disorder) F91.3 [place] [id number] [place] [address] Mar, [place] [id number] [place] [address] Feb, [place] [id number] [place] [address] Jan, [place] [id number] [place] [address] Jan, Bipolar disorder, unspecified 296.80 ; Attention deficit disorder with hyperactivity 314.01 and Parent-child conflict V61.20 [place] [id number] [place] [address] Dec, [place] [address] [address] Dec, Routine child health exam V20.2 ; Dietary counseling and surveillance V65.3 ; Exercise counseling V65.41 ; Contraception management V25.9 and HEP A (ADULT) DX V05.3 [place] [id number] [place] [address] Nov, Oppositional defiant disorder 313.81 ; Bipolar disorder, unspecified 296.80 ; Anxiety state, unspecified 300.00 ; Parent-child conflict V61.20 and Attention deficit disorder with hyperactivity 314.01 [facility] [place] [facility] [address] [id number] [place] [address] Oct, [facility] [place] [facility] [address] [facility] [id number] [place] [address] Oct, [facility] [place] [facility] [address] [facility] [id number] [place] [address] Oct, [facility] [place] [facility] [address] [facility] [id number] [place] [address] September, [facility] [place] [facility] [address] [facility] [id number] [place] [address] September, [facility] [place] [facility] [address] [facility] [id number] [place] [address] September, [facility] [place] [facility] [address] [facility] [id number] [place] [address] Aug, [facility] [place] [facility] [address] [facility] [id number], [place] [address] Aug, [facility] [place] [facility] [address] [facility] [id number], [place] [address] Jul, [facility] [place] [facility] [address] [facility] [id number], [place] [address] Jul, [facility] [place] [facility] [address] [facility] [id number], [place] [address] Jul, [facility] [place] [facility] [address] [facility] [id number], [place] [address] Jul, [facility] [place] [facility] [address] [facility] [id number], [place] [address] Jun, [facility] [place] [facility] [address] [facility] [id number], [place] [address] Jun, [facility] [place] [facility] [address] [facility] [id number], [place] [address] May, [facility] [place] [facility] [address] [facility] [id number] [place] [address] May, [facility] [place] [facility] [address] [id number] [place] [address] May, [facility] [place] [facility] [address] [id number] [place] [address] May, [facility] [place] [facility] [address] [id number] [place] [address] May, [facility] [place] [facility] [address] [id number] [place] [address] May, [facility] [place] [facility] [address] [id number] [place] [address] May, [facility] [place] [facility] [address] [id number] [place] [address] May, [facility] [place] [facility] [address] [id number] [place] [address] Mar, [facility] [place] [facility] [address] [id number] [place] [address] Mar, [facility] [place] [facility] [address] [id number] [place] [address] Feb, [facility] [place] [facility] [address] [id number] [place] [address] Feb, [facility] [place] [facility] [address] [id number] [place] [address] Jan, [facility] [place] [facility] [address] [id number] [place] [address] Jan, [facility] [place] [facility] [address] [id number] [place] [address] Nov, [facility] [place] [facility] [address] [id number] [place] [address] Nov, [facility] [place] [facility] [address] [id number] [place] [address] Nov, [facility] [place] [facility] [address] [id number] [place] [address] Nov, [facility] [address] [id number] [place] [address] September, [facility] [address] [id number] [place] [address] September, [facility] [address] [id number] [place] [address] Apr, [facility] [address] [id number] [place] [address] Apr, [facility] [address] [id number] [place] [address] Feb, [facility] [address] [id number] [place] [address] Feb, [facility] [address] [id number] [place] [address] Oct, [facility] [address] [id number] [place] [address] September, [facility] [address] [id number] [place] [address] September, [facility] [address] [id number] [place] [address] Aug, [facility] [address] [id number] [place] [address] September, [facility] [address] [id number] [place] [address] Aug, [facility] [place] [facility] [address] [id number] [place] [address] Aug, [facility] [place] [facility] [address] [id number] [place] [address] Aug, [facility] [place] [facility] [address] [id number] [place] [address] Jul, [facility] [address] [facility] [id number] [place] [address] Aug, [facility] [address] [facility] [id number] [place] [address] Jul, IMMUNIZATIONS No Known Immunizations SOCIAL HISTORY Never Assessed REASON FOR VISIT Cold symptoms/ cough/congestion x 1 week Yves THAKKAR, pt. states she will wake up at night "choking on mucus" PLAN OF CARE Activity Details Follow Up prn Reason: VITAL SIGNS Height 63.4 in 2017-08-08 Weight 143.4 lbs 2017-08-08 Temperature 98.0 degrees Fahrenheit 2017-08-08 Heart Rate 76 bpm 2017-08-08 Respiratory Rate 20 2017-08-08 BMI 25.08 kg/m2 2017-08-08 Blood pressure systolic 108 mmHg 2017-08-08 Blood pressure diastolic 70 mmHg 2017-08-08 MEDICATIONS Medication Instructions Dosage Frequency Start Date End Date Duration Status Flonase Allergy Relief 50 MCG/ACT Nasally Once a day 1 spray in each nostril 24h Jul, 30 day(s) Active Flonase 50 MCG/ACT Nasally Once a day 1 spray in each nostril 24h Nov, 30 day(s) Not-Taking Ibuprofen 200 MG Orally every 6 hrs 1 tablet as needed 6h Not-Taking NuvaRing 0.12-0.015 MG/24HR Vaginal Place in vagina for 3 weeks, remove for one week 1 ring Mar, 30 day(s) Not-Taking RESULTS No Results PROCEDURES No Known procedures INSTRUCTIONS MEDICATIONS ADMINISTERED No Known Medications MEDICAL (GENERAL) HISTORY Type Description Date Medical History attention deficit hyperactivity disorder Medical History bicuspid aortic valve Medical History schizophrenia Medical History dysmenorrhea
--- OUTSIDE RECORDS SUMMARY | 2018-12-10 01:23 | XMS REPORT ---
Author Author KING RAGHAV Organization [facility] Address [address] [place] [address] Care Team Providers Care Network Systems Engineer Name Role Phone RAGHAV LEIJA Unavailable PROBLEMS Type Condition ICD9-CM Code SPZ80-OT Code Onset Dates Condition Status SNOMED Code Problem Infection of right ear H66.91 Active 3923469725395664 Problem Acute non intractable tension-type headache G44.209 Active 040811348 Problem Attention deficit disorder with hyperactivity F90.9 Active 519752734 Problem Bipolar disorder, unspecified 296.80 Active 52389144 Problem Encounter for initial prescription of injectable contraceptive Z30.013 Active 054471803 Problem ODD (oppositional defiant disorder) F91.3 Active 24143190 ALLERGIES Substance Reaction Event Type Date Status Penicillin V Potassium Unknown Drug Allergy Nov, Active ENCOUNTERS Encounter Location Date Diagnosis [facility] [id number] [place] [address] Dec, Vaginal discharge N89.8 and Screening examination for sexually transmitted disease Z11.3 [facility] [id number] [place] [address] Nov, Dysuria R30.0 [facility] [id number] [place] [address] Oct, Bedbug bite, initial encounter W57.XXXA ; Insect bite (nonvenomous) of left upper arm, initial encounter S40.862A and Bitten or stung by nonvenomous insect and other nonvenomous arthropods, initial encounter W57.XXXA [facility] [id number] [place] [address] Jul, Seasonal allergic rhinitis, unspecified trigger J30.2 [facility] [id number] [place] [address] Apr, Sore throat J02.9 and Acute nasopharyngitis J00 [place] [id number] [place] [address] Apr, [place] [address] [address] Mar, control counseling Z30.09 [facility] [address] [address] Feb, Infection of right ear H66.91 ; Vaginal discharge N89.8 and Sore throat J02.9 [facility] [address] [address] Feb, Encounter for Depo-Provera contraception Z30.42 ; Sore throat J02.9 ; Acute allergic rhinitis J30.9 and Acute nasopharyngitis (common cold) J00 [facility] [place] [id number] [place] [address] Dec, Other viral agents as the cause of diseases classified elsewhere B97.89 and Acute upper respiratory infection, unspecified J06.9 [place] [id number] [place] [address] Dec, Vaginal discharge N89.8 [place] [id number] [place] [address] Dec, Routine gynecological examination Z01.419 ; Encounter for counseling regarding contraception Z30.09 and Vaginal discharge N89.8 [facility] [place] [id number] [place] [address] Nov, Encounter for Depo-Provera contraception Z30.42 and Viral gastroenteritis A08.4 [facility] [place] [id number] [place] [address] Nov, Acute nonintractable headache, unspecified headache type R51 and Acute seasonal allergic rhinitis, unspecified trigger J30.2 [facility] [id number] [place] [address] September, Acute non intractable tension-type headache G44.209 [place] [id number] [place] [address] September, Urinary frequency R35.0 [place] [id number] [place] [address] September, [place] [id number] [place] [address] Aug, Urinary frequency R35.0 and Encounter for Depo-Provera contraception Z30.42 [facility] [place] [id number] [place] [address] Jul, Sore throat J02.9 and Strep pharyngitis J02.0 [facility] [place] [id number] [place] [address] May, Encounter for Depo-Provera contraception Z30.42 [place] [id number] [place] [address] Apr, General medical exam Z00.00 and Surveillance for Depo-Provera contraception Z30.42 [place] [id number] [place] [address] Mar, Attention deficit disorder with hyperactivity F90.9 [facility] [place] [id number] [place] [address] Feb, Encounter for Depo-Provera contraception Z30.42 [place] [id number] [place] [address] Feb, [facility] [place] [id number] [place] [address] Jan, Sore throat J02.9 [place] [id number] [place] [address] Jan, [place] [id number] [place] [address] Dec, [place] [id number] [place] [address] Dec, Encounter for Depo-Provera contraception Z30.42 [place] [id number] [place] [address] Nov, Recent urinary tract infection Z87.440 and Urinary frequency R35.0 [place] [id number] [place] [address] Nov, [place] [address] [address] Oct, [place] [id number] [place] [address] September, Attention deficit disorder with hyperactivity F90.9 and ODD (oppositional defiant disorder) F91.3 [place] [id number] [place] [address] September, Routine gynecological examination Z01.419 ; Encounter for counseling regarding contraception Z30.9 ; Encounter for initial prescription of injectable contraceptive Z30.013 and Encounter for Depo-Provera contraception Z30.42 [facility] [id number] [place] [address] Aug, Migraine without aura and without status migrainosus, not intractable G43.009 [facility] [id number] [place] [address] Aug, Sore throat J02.9 and Acute streptococcal pharyngitis J02.0 [facility] [place] [id number] [place] [address] Aug, Acute upper respiratory infection, unspecified J06.9 [place] [id number] [place] [address] Jun, [facility] [id number] [place] [address] Jun, Sore throat J02.9 [place] [address] [address] May, [facility] [id number] [place] [address] May, [place] [address] [address] Apr, [facility] [address] [address] Mar, [place] [address] [address] Mar, Attention deficit disorder with hyperactivity F90.9 and ODD (oppositional defiant disorder) F91.3 [place] [address] [address] Mar, [place] [id number] [place] [address] Feb, [place] [id number] [place] [address] Jan, [place] [id number] [place] [address] Jan, Bipolar disorder, unspecified 296.80 ; Attention deficit disorder with hyperactivity 314.01 and Parent-child conflict V61.20 [place] [id number] [place] [address] Dec, [place] [id number] [place] [address] Dec, Routine child health exam V20.2 ; Dietary counseling and surveillance V65.3 ; Exercise counseling V65.41 ; Contraception management V25.9 and HEP A (ADULT) DX V05.3 [place] [id number] [place] [address] Nov, Oppositional defiant disorder 313.81 ; Bipolar disorder, unspecified 296.80 ; Anxiety state, unspecified 300.00 ; Parent-child conflict V61.20 and Attention deficit disorder with hyperactivity 314.01 [facility] [address] [address] Oct, [facility] [address] [address] Oct, [facility] [id number] [place] [address] Oct, [facility] [id number] [place] [address] September, [facility] [id number] [place] [address] September, [facility] [id number] [place] [address] September, [facility] [address] [address] Aug, [facility] [address] [address] Aug, [facility] [address] [address] Jul, [facility] [address] [address] Jul, [facility] [address] [address] Jul, [facility] [address] [address] Jul, [facility] [address] [address] Jun, [facility] [address] [address] Jun, [facility] [place] [facility] [address] [id number] [place] [address] May, [facility] [place] [facility] [address] [id number] [place] [address] May, [facility] [place] [facility] [address] [id number] [place] [address] May, [facility] [place] [facility] [address] [id number] [place] [address] May, [facility] [place] [facility] [address] [id number] [place] [address] May, [facility] [place] [facility] [address] [id number] [place] [address] May, [facility] [place] [facility] [address] [id number] [place] [address] May, [facility] [place] [facility] [address] [id number] [place] [address] May, [facility] [place] [facility] [address] [id number] [place] [address] Mar, [facility] [place] [facility] [address] [id number] [place] [address] Mar, [facility] [place] [facility] [address] [id number] [place] [address] Feb, [facility] [place] [facility] [address] [id number] [place] [address] Feb, [facility] [place] [facility] [address] [id number] [place] [address] Jan, [facility] [place] [facility] [address] [id number] [place] [address] Jan, [facility] [place] [facility] [address] [id number] [place] [address] Nov, [facility] [place] [facility] [address] [id number] [place] [address] Nov, [facility] [address] [id number] [place] [address] Nov, [facility] [place] [facility] [address] [id number] [place] [address] Nov, [facility] [address] [id number] [place] [address] September, [facility] [place] [facility] [address] [id number] [place] [address] September, [facility] [address] [id number] [place] [address] Apr, [facility] [address] [id number] [place] [address] Apr, [facility] [address] [id number] [place] [address] Feb, [facility] [place] [facility] [address] [id number] [place] [address] Feb, [facility] [address] [id number] [place] [address] Oct, [facility] [place] [facility] [address] [id number] [place] [address] September, [facility] [address] [id number] [place] [address] September, [facility] [place] [facility] [address] [id number] [place] [address] Aug, [facility] [place] [facility] [address] [id number] [place] [address] September, [facility] [place] [facility] [address] [id number] [place] [address] Aug, [facility] [place] [facility] [address] [id number] [place] [address] Aug, [facility] [place] [facility] [address] [facility] [id number] [place] [address] 17 Aug, 2011 [facility] [address] [facility] [id number] [address] 26 Jul, 2011 [facility] [address] [facility] [id number] [address] 13 Aug, 2010 [facility] [address] [facility] [id number] [address] 16 Jul, 2009 IMMUNIZATIONS No Known Immunizations SOCIAL HISTORY Never Assessed REASON FOR VISIT UTI symptoms, pain/burning with urination, cloudy urine, noticed today-Jon [facility] [employer] OF C[facility] Activity Details Follow Up 3-5 days if not better, sooner if s/sx worsen Reason:dysuria VITAL SIGNS Height 63.4 in 2017-11-22 Weight 146.6 lbs 2017-11-22 Temperature 97.8 degrees Fahrenheit 2017-11-22 Heart Rate 80 bpm 2017-11-22 Respiratory Rate 18 2017-11-22 BMI 25.64 kg/m2 2017-11-22 Blood pressure systolic 108 mmHg 2017-11-22 Blood pressure diastolic 72 mmHg 2017-11-22 MEDICATIONS Medication Instructions Dosage Frequency Start Date End Date Duration Status NuvaRing 0.12-0.015 MG/24HR Vaginal Place in vagina for 3 weeks, remove for one week 1 ring Mar, 30 day(s) Active Triamcinolone Acetonide 0.1 % Externally Twice a day 1 application to affected area 12h Oct, 7 days Active RESULTS No Results PROCEDURES Procedure Date Ordered Result Body Site URINALYSIS, AUTO, W/O SCOPE November 22, 2017 URINE TEST November 22, 2017 LAB NOT BILLED BY [facility] November 22, 2017 INSTRUCTIONS MEDICATIONS ADMINISTERED No Known Medications MEDICAL (GENERAL) HISTORY Type Description Date Medical History attention deficit hyperactivity disorder Medical History bicuspid aortic valve Medical History schizophrenia Medical History dysmenorrhea
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
--- OUTSIDE RECORDS SUMMARY | 2018-12-10 01:24 | XMS REPORT ---
Author Author JAXON BARRETT [facility] Address [address] [place] [address] Care Team Providers Care Senior Writer Name Role Phone BARRETT COATES Unavailable PROBLEMS Type Condition ICD9-CM Code RHH55-OQ Code Onset Dates Condition Status SNOMED Code Problem Infection of right ear H66.91 Active 0234016003241062 Problem Acute non intractable tension-type headache G44.209 Active 227700328 Problem Attention deficit disorder with hyperactivity F90.9 Active 609191095 Problem Bipolar disorder, unspecified 296.80 Active 86365570 Problem Encounter for initial prescription of injectable contraceptive Z30.013 Active 247331991 Problem ODD (oppositional defiant disorder) F91.3 Active 00428148 ALLERGIES Substance Reaction Event Type Date Status Penicillin V Potassium Unknown Drug Allergy Mar, Active ENCOUNTERS Encounter Location Date Diagnosis [facility] [address] [address] Jul, Seasonal allergic rhinitis, unspecified trigger J30.2 [facility] [address] [place] [id number] [place] [address] Apr, Sore throat J02.9 and Acute nasopharyngitis J00 [facility] [address] [place] [id number] [place] [address] Apr, [facility] [address] [place] [id number] [place] [address] Mar, control counseling Z30.09 [facility] [address] [place] [address] Feb, Infection of right ear H66.91 ; Vaginal discharge N89.8 and Sore throat J02.9 [facility] [address] [id number] [place] [address] Feb, Encounter for Depo-Provera contraception Z30.42 ; Sore throat J02.9 ; Acute allergic rhinitis J30.9 and Acute nasopharyngitis (common cold) J00 [facility] [place] [address] [id number] [place] [address] Dec, Other viral agents as the cause of diseases classified elsewhere B97.89 and Acute upper respiratory infection, unspecified J06.9 [place] [address] [address] Dec, Vaginal discharge N89.8 [place] [address] [address] Dec, Routine gynecological examination Z01.419 ; Encounter for counseling regarding contraception Z30.09 and Vaginal discharge N89.8 [facility] [place] [address] [address] Nov, Encounter for Depo-Provera contraception Z30.42 and Viral gastroenteritis A08.4 [facility] [place] [address] [id number] [place] [address] Nov, Acute nonintractable headache, unspecified headache type R51 and Acute seasonal allergic rhinitis, unspecified trigger J30.2 [facility] [place] [address] [id number] [place] [address] September, Acute non intractable tension-type headache G44.209 [place] [address] [place] [id number] [place] [address] September, Urinary frequency R35.0 [place] [address] [address] September, [place] [address] [address] Aug, Urinary frequency R35.0 and Encounter for Depo-Provera contraception Z30.42 [facility] [place] [address] [address] Jul, Sore throat J02.9 and Strep pharyngitis J02.0 [facility] [id number] [place] [address] May, Encounter for Depo-Provera contraception Z30.42 [facility] [address] [place] [address] Apr, General medical exam Z00.00 and Surveillance for Depo-Provera contraception Z30.42 [facility] [address] [place] [id number] [place] [address] Mar, Attention deficit disorder with hyperactivity F90.9 [facility] [address] [id number] [place] [address] Feb, Encounter for Depo-Provera contraception Z30.42 [facility] [address] [address] [id number] [place] [address] Feb, [facility] [address] [address] [id number] [place] [address] Jan, Sore throat J02.9 [facility] [id number] [place] [address] Jan, [facility] [address] [id number] [place] [address] Dec, [facility] [id number] [place] [address] Dec, Encounter for Depo-Provera contraception Z30.42 [facility] [address] [place] [address] Nov, Recent urinary tract infection Z87.440 and Urinary frequency R35.0 [facility] [address] [place] [address] Nov, [facility] [id number] [place] [address] Oct, [facility] [address] [address] [id number] [place] [address] September, Attention deficit disorder with hyperactivity F90.9 and ODD (oppositional defiant disorder) F91.3 [place] [address] [place] [id number] [place] [address] September, Routine gynecological examination Z01.419 ; Encounter for counseling regarding contraception Z30.9 ; Encounter for initial prescription of injectable contraceptive Z30.013 and Encounter for Depo-Provera contraception Z30.42 [facility] [place] [address] [id number] [place] [address] Aug, Migraine without aura and without status migrainosus, not intractable G43.009 [facility] [place] [address] [id number] [place] [address] Aug, Sore throat J02.9 and Acute streptococcal pharyngitis J02.0 [facility] [place] [address] [id number] [place] [address] Aug, Acute upper respiratory infection, unspecified J06.9 [place] [address] [id number] [place] [address] Jun, [facility] [place] [address] [id number] [place] [address] Jun, Sore throat J02.9 [place] [address] [id number] [place] [address] May, [place] [address] [id number] [place] [address] May, [place] [address] [address] Apr, [place] [address] [place] [id number] [place] [address] Mar, [place] [address] [address] Mar, Attention deficit disorder with hyperactivity F90.9 and ODD (oppositional defiant disorder) F91.3 [facility] [id number] [place] [address] Mar, [facility] [address] [id number] [place] [address] Feb, [facility] [address] [place] [id number] [place] [address] Jan, [facility] [address] [place] [id number] [place] [address] Jan, Bipolar disorder, unspecified 296.80 ; Attention deficit disorder with hyperactivity 314.01 and Parent-child conflict V61.20 [place] [address] [id number] [place] [address] Dec, [facility] [address] [place] [id number] [place] [address] Dec, Routine child health exam V20.2 ; Dietary counseling and surveillance V65.3 ; Exercise counseling V65.41 ; Contraception management V25.9 and HEP A (ADULT) DX V05.3 [place] [address] [id number] [place] [address] Nov, Oppositional defiant disorder 313.81 ; Bipolar disorder, unspecified 296.80 ; Anxiety state, unspecified 300.00 ; Parent-child conflict V61.20 and Attention deficit disorder with hyperactivity 314.01 [facility] [address] [place] [address] Oct, [facility] [address] [place] [id number] [place] [address] Oct, [facility] [address] [id number] [place] [address] Oct, [facility] [address] [place] [id number] [place] [address] September, [facility] [address] [place] [address] [id number] [place] [address] September, [facility] [place] [facility] [address] [place] [address] [id number] [place] [address] September, [facility] [place] [facility] [address] [place] [address] [id number] [place] [address] Aug, [facility] [place] [facility] [address] [place] [address] [id number] [place] [address] Aug, [facility] [place] [facility] [address] [place] [address] [id number] [place] [address] Jul, [facility] [place] [facility] [address] [place] [address] [id number] [place] [address] Jul, [facility] [place] [facility] [address] [place] [address] [id number] [place] [address] Jul, [facility] [place] [facility] [address] [place] [address] [id number] [place] [address] Jul, [facility] [place] [facility] [address] [place] [address] [id number] [place] [address] Jun, [facility] [place] [facility] [address] [place] [address] [id number] [place] [address] Jun, [facility] [place] [facility] [address] [place] [address] [id number] [place] [address] May, [facility] [place] [facility] [address] [place] [address] [id number] [place] [address] May, [facility] [place] [facility] [address] [id number] [place] [address] May, [facility] [place] [facility] [address] [id number] [place] [address] May, [facility] [place] [facility] [address] [id number] [place] [address] May, [facility] [place] [facility] [address] [id number] [place] [address] May, [facility] [place] [facility] [address] [id number] [place] [address] May, [facility] [place] [facility] [address] [id number] [place] [address] May, [facility] [place] [facility] [address] [id number] [place] [address] Mar, [facility] [place] [facility] [address] [id number] [place] [address] Mar, [facility] [place] [facility] [address] [id number] [place] [address] Feb, [facility] [place] [facility] [address] [id number] [place] [address] Feb, [facility] [place] [facility] [address] [id number] [place] [address] Jan, [facility] [place] [facility] [address] [id number] [place] [address] Jan, [facility] [place] [facility] [address] [id number] [place] [address] Nov, [facility] [place] [facility] [address] [id number] [place] [address] Nov, [facility] [place] [facility] [address] [id number] [place] [address] Nov, [facility] [place] [facility] [address] [id number] [place] [address] Nov, [facility] [place] [facility] [address] [id number] [place] [address] September, [facility] [place] [facility] [address] [id number] [place] [address] September, [facility] [place] [facility] [address] [id number] [place] [address] Apr, [facility] [place] [facility] [address] [facility] [id number] [place] [address] 16 Apr, 2013 [facility] [address] [facility] [id number] [place] [address] Feb, [facility] [address] [facility] [id number] [place] [address] Feb, [facility] [address] [facility] [id number] [place] [address] Oct, [facility] [address] [facility] [id number] [place] [address] September, [facility] [address] [facility] [id number] [place] [address] September, [facility] [address] [facility] [id number] [place] [address] Aug, [facility] [address] [address] September, [facility] [address] [facility] [id number] [place] [address] Aug, [facility] [address] [address] Aug, [facility] [address] [place] [address] [id number] [address] Aug, [facility] [address] [place] [address] [id number] [address] Jul, [facility] [address] [facility] [id number] [place] [address] Aug, [facility] [address] [place] [address] [id number] [address] 16 Jul, 2009 IMMUNIZATIONS No Known Immunizations SOCIAL HISTORY Never Assessed REASON FOR VISIT control consult / Radha -- shantal rodas, patient states she is gaining weight and woild like a BC that she can get periods every month PLAN OF CARE Activity Details Follow Up 1 Year Reason:well woman/ control VITAL SIGNS Height 63.4 in 2017-03-21 Weight 145.0 lbs 2017-03-21 Temperature 98.7 degrees Fahrenheit 2017-03-21 BMI 25.36 kg/m2 2017-03-21 Blood pressure systolic 106 mmHg 2017-03-21 Blood pressure diastolic 76 mmHg 2017-03-21 MEDICATIONS Medication Instructions Dosage Frequency Start Date End Date Duration Status Azithromycin 250 MG Orally 2 today and one daily 1 tablet Feb, Mar, 5 days Active Flonase 50 MCG/ACT Nasally Once a day 1 spray in each nostril 24h Nov, 30 day(s) Active NuvaRing 0.12-0.015 MG/24HR Vaginal Place in vagina for 3 weeks, remove for one week 1 ring Mar, 30 day(s) Active Ibuprofen 200 MG Orally every 6 hrs 1 tablet as needed 6h Active RESULTS No Results PROCEDURES No Known procedures INSTRUCTIONS MEDICATIONS ADMINISTERED No Known Medications MEDICAL (GENERAL) HISTORY Type Description Date Medical History attention deficit hyperactivity disorder Medical History bicuspid aortic valve Medical History schizophrenia Medical History dysmenorrhea
--- OUTSIDE RECORDS SUMMARY | 2018-12-10 01:24 | XMS REPORT ---
Author Author JAXON BARRETT [facility] Address [address] [place] [address] Care Team Providers Care Report Clerk Name Role Phone BARRETT COATES Unavailable PROBLEMS Type Condition ICD9-CM Code CQG24-FE Code Onset Dates Condition Status SNOMED Code Problem Infection of right ear H66.91 Active 2825956495254247 Problem Acute non intractable tension-type headache G44.209 Active 149230486 Problem Attention deficit disorder with hyperactivity F90.9 Active 078951898 Problem Bipolar disorder, unspecified 296.80 Active 47562175 Problem Encounter for initial prescription of injectable contraceptive Z30.013 Active 668115453 Problem ODD (oppositional defiant disorder) F91.3 Active 25139687 ALLERGIES No Information ENCOUNTERS Encounter Location Date Diagnosis [facility] [id number] [place] [address] Jul, Seasonal allergic rhinitis, unspecified trigger J30.2 [facility] [address] [place] [id number] [place] [address] Apr, Sore throat J02.9 and Acute nasopharyngitis J00 [facility] [address] [place] [id number] [place] [address] Apr, [facility] [address] [address] Mar, control counseling Z30.09 [facility] [address] [address] Feb, Infection of right ear H66.91 ; Vaginal discharge N89.8 and Sore throat J02.9 [facility] [address] [place] [id number] [place] [address] 02 Oct, 2017 Encounter for Depo-Provera contraception Z30.42 ; Sore throat J02.9 ; Acute allergic rhinitis J30.9 and Acute nasopharyngitis (common cold) J00 [facility] [address] [address] Dec, Other viral agents as the cause of diseases classified elsewhere B97.89 and Acute upper respiratory infection, unspecified J06.9 [place] [address] [address] Dec, Vaginal discharge N89.8 [place] [address] [address] Dec, Routine gynecological examination Z01.419 ; Encounter for counseling regarding contraception Z30.09 and Vaginal discharge N89.8 [facility] [address] [address] 15 Nov, 2016 Encounter for Depo-Provera contraception Z30.42 and Viral gastroenteritis A08.4 [facility] [address] [address] Nov, Acute nonintractable headache, unspecified headache type R51 and Acute seasonal allergic rhinitis, unspecified trigger J30.2 [facility] [address] [address] September, Acute non intractable tension-type headache G44.[address] [address] September, Urinary frequency R35.[address] [address] September, [address] [address] Aug, Urinary frequency R35.0 and Encounter for Depo-Provera contraception Z30.42 [facility] [address] [address] Jul, Sore throat J02.9 and Strep pharyngitis J02.0 [facility] [id number] [place] [address] May, Encounter for Depo-Provera contraception Z30.42 [facility] [id number] [place] [address] Apr, General medical exam Z00.00 and Surveillance for Depo-Provera contraception Z30.42 [facility] [id number] [place] [address] Mar, Attention deficit disorder with hyperactivity F90.9 [facility] [id number] [place] [address] Feb, Encounter for Depo-Provera contraception Z30.42 [facility] [id number] [place] [address] Feb, [facility] [id number] [place] [address] Jan, Sore throat J02.9 [facility] [id number] [place] [address] Jan, [facility] [id number] [place] [address] Dec, [facility] [id number] [place] [address] Dec, Encounter for Depo-Provera contraception Z30.42 [facility] [id number] [place] [address] Nov, Recent urinary tract infection Z87.440 and Urinary frequency R35.0 [facility] [id number] [place] [address] Nov, [facility] [id number] [place] [address] Oct, [facility] [id number] [place] [address] September, Attention deficit disorder with hyperactivity F90.9 and ODD (oppositional defiant disorder) F91.3 [id number] [place] [address] September, Routine gynecological examination Z01.419 ; Encounter for counseling regarding contraception Z30.9 ; Encounter for initial prescription of injectable contraceptive Z30.013 and Encounter for Depo-Provera contraception Z30.42 [facility] [address] [address] 13 Aug, 2015 Migraine without aura and without status migrainosus, not intractable G43.[address] [address] Aug, Sore throat J02.9 and Acute streptococcal pharyngitis J02.[address] [address] Aug, Acute upper respiratory infection, unspecified J06.9 [id number] [place] [address] Jun, [facility] [address] [address] Jun, Sore throat J02.9 [address] [id number] [place] [address] May, [address] [address] May, [address] [address] Apr, [place] [address] [address] Mar, [place] [id number] [place] [address] Mar, Attention deficit disorder with hyperactivity F90.9 and ODD (oppositional defiant disorder) F91.3 [facility] [address] [place] [address] Mar, [facility] [id number] [place] [address] Feb, [facility] [id number] [place] [address] Jan, [facility] [id number] [place] [address] Jan, Bipolar disorder, unspecified 296.80 ; Attention deficit disorder with hyperactivity 314.01 and Parent-child conflict V61.20 [place] [id number] [place] [address] Dec, [place] [id number] [place] [address] Dec, Routine child health exam V20.2 ; Dietary counseling and surveillance V65.3 ; Exercise counseling V65.41 ; Contraception management V25.9 and HEP A (ADULT) DX V05.3 [place] [id number] [place] [address] Nov, Oppositional defiant disorder 313.81 ; Bipolar disorder, unspecified 296.80 ; Anxiety state, unspecified 300.00 ; Parent-child conflict V61.20 and Attention deficit disorder with hyperactivity 314.01 [facility] [id number] [place] [address] Oct, [facility] [id number] [place] [address] Oct, [facility] [id number] [place] [address] Oct, [facility] [id number] [place] [address] September, [facility] [id number] [place] [address] September, [facility] [place] [facility] [address] [id number] [place] [address] September, [facility] [place] [facility] [address] [id number] [place] [address] Aug, [facility] [place] [facility] [address] [facility] [id number] [place] [address] Aug, [facility] [place] [facility] [address] [id number] [place] [address] Jul, [facility] [place] [facility] [address] [id number] [place] [address] Jul, [facility] [place] [facility] [address] [id number] [place] [address] Jul, [facility] [place] [facility] [address] [facility] [id number] [place] [address] Jul, [facility] [place] [facility] [address] [facility] [id number] [place] [address] Jun, [facility] [place] [facility] [address] [id number] [place] [address] Jun, [facility] [place] [facility] [address] [facility] [id number] [place] [address] May, [facility] [place] [facility] [address] [id number] [place] [address] May, [facility] [place] [facility] [address] [facility] [id number], [place] [address] May, [facility] [place] [facility] [address] [id number] [place] [address] May, [facility] [place] [facility] [address] [facility] [id number] [place] [address] May, [facility] [place] [facility] [address] [facility] [id number], [place] [address] May, [facility] [place] [facility] [address] [id number] [place] [address] May, [facility] [place] [facility] [address] [id number] [place] [address] May, [facility] [place] [facility] [address] [id number] [place] [address] Mar, [facility] [place] [facility] [address] [id number] [place] [address] Mar, [facility] [place] [facility] [address] [id number] [place] [address] Feb, [facility] [place] [facility] [address] [id number] [place] [address] Feb, [facility] [place] [facility] [address] [id number] [place] [address] Jan, [facility] [place] [facility] [address] [id number] [place] [address] Jan, [facility] [place] [facility] [address] [id number] [place] [address] Nov, [facility] [place] [facility] [address] [id number] [place] [address] Nov, [facility] [place] [facility] [address] [id number] [place] [address] Nov, [facility] [place] [facility] [address] [id number] [place] [address] Nov, [facility] [place] [facility] [address] [id number] [place] [address] September, [facility] [place] [facility] [address] [id number] [place] [address] September, [facility] [place] [facility] [address] [id number] [place] [address] Apr, [facility] [place] [facility] [address] [id number] [place] [address] Apr, [facility] [address] [facility] [id number], [place] [address] Feb, [facility] [address] [facility] [id number], [place] [address] Feb, [facility] [address] [id number] [address] Oct, [facility] [address] [facility] [id number], [place] [address] September, [facility] [address] [facility] [id number], [place] [address] September, [facility] [address] [id number] [address] Aug, [facility] [address] [place] [address] September, [facility] [id number] [address] Aug, [facility] [address] [id number] [address] Aug, [facility] [address] [address] Aug, [facility] [address] [id number] [address] Jul, [facility] [address] [place] [address] Aug, [facility] [address] [id number] [address] Jul, IMMUNIZATIONS No Known Immunizations SOCIAL HISTORY Never Assessed REASON FOR VISIT Refill request PLAN OF CARE VITAL SIGNS MEDICATIONS No Known Medications RESULTS No Results PROCEDURES No Known procedures INSTRUCTIONS MEDICATIONS ADMINISTERED No Known Medications MEDICAL (GENERAL) HISTORY Type Description Date Medical History attention deficit hyperactivity disorder Medical History bicuspid aortic valve Medical History schizophrenia Medical History dysmenorrhea
--- OUTSIDE RECORDS SUMMARY | 2018-12-10 01:24 | XMS REPORT ---
Author Author RESHMA Hale Organization [facility] Address [address] [place] [address] Care Team Providers Care Instrument Person Name Role Phone Geoffrey RESHMA Unavailable PROBLEMS Type Condition ICD9-CM Code [id number] Code Onset Dates Condition Status SNOMED Code Problem Infection of right ear H66.91 Active 0235555946038544 Problem Acute non intractable tension-type headache G44.209 Active 628392597 Problem Attention deficit disorder with hyperactivity F90.9 Active 740472535 Problem Bipolar disorder, unspecified 296.80 Active 56720448 Problem Encounter for initial prescription of injectable contraceptive Z30.013 Active 520941219 Problem ODD (oppositional defiant disorder) F91.3 Active 09759729 ALLERGIES Substance Reaction Event Type Date Status Penicillin V Potassium Unknown Drug Allergy Feb, Active ENCOUNTERS Encounter Location Date Diagnosis [facility] [id number] [place] [address] Jul, Seasonal allergic rhinitis, unspecified trigger J30.2 [facility] [id number] [place] [address] Apr, Sore throat J02.9 and Acute nasopharyngitis J00 [facility] [id number] [place] [address] Apr, [facility] [id number] [place] [address] Mar, control counseling Z30.09 [facility] [address] [address] Feb, Infection of right ear H66.91 ; Vaginal discharge N89.8 and Sore throat J02.9 [facility] [address] [place] [address] Feb, Encounter for Depo-Provera contraception Z30.42 ; Sore throat J02.9 ; Acute allergic rhinitis J30.9 and Acute nasopharyngitis (common cold) J00 [facility] [place] [id number] [place] [address] Dec, Other viral agents as the cause of diseases classified elsewhere B97.89 and Acute upper respiratory infection, unspecified J06.9 [place] [address] [address] Dec, Vaginal discharge N89.8 [place] [address] [address] Dec, Routine gynecological examination Z01.419 ; Encounter for counseling regarding contraception Z30.09 and Vaginal discharge N89.8 [facility] [place] [address] [address] Nov, Encounter for Depo-Provera contraception Z30.42 and Viral gastroenteritis A08.4 [facility] [place] [id number] [place] [address] Nov, Acute nonintractable headache, unspecified headache type R51 and Acute seasonal allergic rhinitis, unspecified trigger J30.2 [facility] [place] [id number] [place] [address] September, Acute non intractable tension-type headache G44.209 [place] [id number] [place] [address] September, Urinary frequency R35.0 [place] [address] [address] September, [place] [address] [address] Aug, Urinary frequency R35.0 and Encounter for Depo-Provera contraception Z30.42 [facility] [place] [address] [place] [address] Jul, Sore throat J02.9 and Strep pharyngitis J02.0 [facility] [id number] [place] [address] May, Encounter for Depo-Provera contraception Z30.42 [facility] [id number] [place] [address] Apr, General medical exam Z00.00 and Surveillance for Depo-Provera contraception Z30.42 [facility] [id number] [place] [address] Mar, Attention deficit disorder with hyperactivity F90.9 [facility] [id number] [place] [address] Feb, Encounter for Depo-Provera contraception Z30.42 [facility] [id number] [place] [address] Feb, [facility] [id number] [place] [address] Jan, Sore throat J02.9 [facility] [id number] [place] [address] Jan, [facility] [id number] [place] [address] Dec, [facility] [id number] [place] [address] Dec, Encounter for Depo-Provera contraception Z30.42 [facility] [id number] [place] [address] Nov, Recent urinary tract infection Z87.440 and Urinary frequency R35.0 [facility] [id number] [place] [address] Nov, [facility] [id number] [place] [address] Oct, [facility] [id number] [place] [address] September, Attention deficit disorder with hyperactivity F90.9 and ODD (oppositional defiant disorder) F91.3 [place] [id number] [place] [address] September, Routine gynecological examination Z01.419 ; Encounter for counseling regarding contraception Z30.9 ; Encounter for initial prescription of injectable contraceptive Z30.013 and Encounter for Depo-Provera contraception Z30.42 [facility] [id number] [place] [address] Aug, Migraine without aura and without status migrainosus, not intractable G43.009 [facility] [place] [id number] [place] [address] Aug, Sore throat J02.9 and Acute streptococcal pharyngitis J02.0 [facility] [place] [id number] [place] [address] Aug, Acute upper respiratory infection, unspecified J06.9 [place] [id number] [place] [address] Jun, [facility] [id number] [place] [address] Jun, Sore throat J02.9 [place] [id number] [place] [address] May, [place] [id number] [place] [address] May, [place] [address] [address] Apr, [place] [id number] [place] [address] Mar, [place] [address] [place] [address] Mar, Attention deficit disorder with hyperactivity F90.9 and ODD (oppositional defiant disorder) F91.3 [facility] [id number] [place] [address] Mar, [facility] [id number] [place] [address] Feb, [facility] [id number] [place] [address] Jan, [facility] [id number] [place] [address] Jan, Bipolar disorder, unspecified 296.80 ; Attention deficit disorder with hyperactivity 314.01 and Parent-child conflict V61.20 [place] [id number] [place] [address] Dec, [place] [id number] [place] [address] Dec, Routine child health exam V20.2 ; Dietary counseling and surveillance V65.3 ; Exercise counseling V65.41 ; Contraception management V25.9 and HEP A (ADULT) DX V05.3 [place] [id number] [place] [address] Nov, Oppositional defiant disorder 313.81 ; Bipolar disorder, unspecified 296.80 ; Anxiety state, unspecified 300.00 ; Parent-child conflict V61.20 and Attention deficit disorder with hyperactivity 314.01 [facility] [address] [place] [address] Oct, [facility] [id number] [place] [address] Oct, [facility] [id number] [place] [address] Oct, [facility] [id number] [place] [address] September, [facility] [place] [facility] [address] [id number] [place] [address] September, [facility] [place] [facility] [address] [id number] [place] [address] September, [facility] [place] [facility] [address] [id number] [place] [address] Aug, [facility] [place] [facility] [address] [id number] [place] [address] Aug, [facility] [place] [facility] [address] [id number] [place] [address] Jul, [facility] [place] [facility] [address] [id number] [place] [address] Jul, [facility] [place] [facility] [address] [id number] [place] [address] Jul, [facility] [place] [facility] [address] [id number] [place] [address] Jul, [facility] [place] [facility] [address] [id number] [place] [address] Jun, [facility] [place] [facility] [address] [id number] [place] [address] Jun, [facility] [place] [facility] [address] [id number], [place] [address] May, [facility] [place] [facility] [address] [id number], [place] [address] May, [facility] [place] [facility] [address] [id number] [place] [address] May, [facility] [place] [facility] [address] [id number] [place] [address] May, [facility] [place] [facility] [address] [id number] [place] [address] May, [facility] [place] [facility] [address] [id number] [place] [address] May, [facility] [place] [facility] [address] [id number] [place] [address] May, [facility] [place] [facility] [address] [id number] [place] [address] May, [facility] [place] [facility] [address] [id number] [place] [address] Mar, [facility] [place] [facility] [address] [id number] [place] [address] Mar, [facility] [place] [facility] [address] [id number] [place] [address] Feb, [facility] [place] [facility] [address] [id number] [place] [address] Feb, [facility] [place] [facility] [address] [id number] [place] [address] Jan, [facility] [place] [facility] [address] [id number] [place] [address] Jan, [facility] [place] [facility] [address] [id number] [place] [address] Nov, [facility] [place] [facility] [address] [id number] [place] [address] Nov, [facility] [place] [facility] [address] [id number] [place] [address] Nov, [facility] [place] [facility] [address] [id number] [place] [address] Nov, [facility] [place] [facility] [address] [id number] [place] [address] September, [facility] [place] [facility] [address] [id number] [place] [address] September, [facility] [place] [facility] [address] [id number] [place] [address] Apr, [facility] [address] [facility] [id number] [address] Apr, [facility] [address] [place] [address] Feb, [facility] [address] [place] [address] Feb, [facility] [id number] [address] Oct, [facility] [address] [facility] [id number], [place] [address] September, [facility] [address] [place] [address] September, [facility] [address] [place] [address] Aug, [facility] [address] [place] [address] September, [facility] [address] [place] [address] Aug, [facility] [address] [place] [address] Aug, [facility] [address] [place] [address] Aug, [facility] [address] [place] [address] Jul, [facility] [id number] [address] Aug, [facility] [address] [place] [address] Jul, IMMUNIZATIONS No Known Immunizations SOCIAL HISTORY Never Assessed REASON FOR VISIT cough, runny nose, bilateral earache. been sick for 3 days. [email or web address] PLAN OF CARE Activity Details Follow Up 2 - 3 Days, prn Reason: VITAL SIGNS Height 63.4 in 2017-03-19 Weight 146.6 lbs 2017-03-19 Temperature 99.0 degrees Fahrenheit 2017-03-19 Heart Rate 82 bpm 2017-03-19 Respiratory Rate 20 2017-03-19 BMI 25.64 kg/m2 2017-03-19 Blood pressure systolic 116 mmHg 2017-03-19 Blood pressure diastolic 72 mmHg 2017-03-19 MEDICATIONS Medication Instructions Dosage Frequency Start Date End Date Duration Status Depo-Provera 150 MG/ML 1 ml Active Azithromycin 250 MG Orally 2 today and one daily 1 tablet Feb, Mar, 5 days Active Flonase 50 MCG/ACT Nasally Once a day 1 spray in each nostril 24h Nov, 30 day(s) Active RESULTS Name Result Date Reference Range STREP A (IN HOUSE) 2017-03-19 STREP A negative Control + Lot # [id number] Exp date 2017 PROCEDURES Procedure Date Ordered Result Body Site STREP A ASSAY W/OPTIC Mar 19, 2017 INSTRUCTIONS MEDICATIONS ADMINISTERED No Known Medications MEDICAL (GENERAL) HISTORY Type Description Date Medical History attention deficit hyperactivity disorder Medical History bicuspid aortic valve Medical History schizophrenia Medical History dysmenorrhea
--- OUTSIDE RECORDS SUMMARY | 2018-12-10 01:25 | XMS REPORT ---
Author Author ANNALISA FOOTE [facility] Address [address] [place] [address] Care Team Providers Care Mini Shifter Name Role Phone ANNALISA FOOTE Unavailable PROBLEMS Type Condition ICD9-CM Code [id number] Code Onset Dates Condition Status SNOMED Code Problem Infection of right ear H66.91 Active 5219916475265581 Problem Acute non intractable tension-type headache G44.209 Active 582979542 Problem Attention deficit disorder with hyperactivity F90.9 Active 199592456 Problem Bipolar disorder, unspecified 296.80 Active 83861374 Problem Encounter for initial prescription of injectable contraceptive Z30.013 Active 727158203 Problem ODD (oppositional defiant disorder) F91.3 Active 66192296 ALLERGIES Substance Reaction Event Type Date Status Penicillin V Potassium Unknown Drug Allergy Apr, Active ENCOUNTERS Encounter Location Date Diagnosis [facility] [id number] [place] [address] Oct, Bedbug bite, initial encounter W57.XXXA ; Insect bite (nonvenomous) of left upper arm, initial encounter S40.862A and Bitten or stung by nonvenomous insect and other nonvenomous arthropods, initial encounter W57.XXXA [facility] [address] [id number] [place] [address] Jul, Seasonal allergic rhinitis, unspecified trigger J30.2 [facility] [id number] [place] [address] Apr, Sore throat J02.9 and Acute nasopharyngitis J00 [facility] [place] [facility] [id number] [place] [address] Apr, [facility] [place] [id number] [place] [address] Mar, control counseling Z30.09 [facility] [address] [address] Feb, Infection of right ear H66.91 ; Vaginal discharge N89.8 and Sore throat J02.9 [facility] [place] [address] [address] Feb, Encounter for Depo-Provera contraception Z30.42 ; Sore throat J02.9 ; Acute allergic rhinitis J30.9 and Acute nasopharyngitis (common cold) J00 [facility] [place] [address] [address] Dec, Other viral agents as the cause of diseases classified elsewhere B97.89 and Acute upper respiratory infection, unspecified J06.[address] [address] Dec, Vaginal discharge N89.[address] [address] Dec, Routine gynecological examination Z01.419 ; Encounter for counseling regarding contraception Z30.09 and Vaginal discharge N89.8 [facility] [address] [place] [id number] [place] [address] Nov, Encounter for Depo-Provera contraception Z30.42 and Viral gastroenteritis A08.4 [facility] [place] [id number] [place] [address] Nov, Acute nonintractable headache, unspecified headache type R51 and Acute seasonal allergic rhinitis, unspecified trigger J30.2 [facility] [place] [address] [address] September, Acute non intractable tension-type headache G44.[address] [address] September, Urinary frequency R35.0 [place] [id number] [place] [address] September, [facility] [place] [facility] [id number] [place] [address] Aug, Urinary frequency R35.0 and Encounter for Depo-Provera contraception Z30.42 [facility] [id number] [place] [address] Jul, Sore throat J02.9 and Strep pharyngitis J02.0 [facility] [id number] [place] [address] May, Encounter for Depo-Provera contraception Z30.42 [place] [id number] [place] [address] Apr, General medical exam Z00.00 and Surveillance for Depo-Provera contraception Z30.42 [place] [id number] [place] [address] Mar, Attention deficit disorder with hyperactivity F90.9 [facility] [address] [place] [id number] [place] [address] Feb, Encounter for Depo-Provera contraception Z30.42 [place] [id number] [place] [address] Feb, [facility] [id number] [place] [address] Jan, Sore throat J02.9 [facility] [place] [facility] [id number] [place] [address] Jan, [place] [id number] [place] [address] Dec, [facility] [place] [facility] [id number] [place] [address] Dec, Encounter for Depo-Provera contraception Z30.42 [facility] [place] [facility] [id number] [place] [address] Nov, Recent urinary tract infection Z87.440 and Urinary frequency R35.0 [place] [address] [address] Nov, [place] [address] [address] Oct, [place] [address] [address] September, Attention deficit disorder with hyperactivity F90.9 and ODD (oppositional defiant disorder) F91.3 [place] [address] [address] September, Routine gynecological examination Z01.419 ; Encounter for counseling regarding contraception Z30.9 ; Encounter for initial prescription of injectable contraceptive Z30.013 and Encounter for Depo-Provera contraception Z30.42 [facility] [place] [id number] [place] [address] Aug, Migraine without aura and without status migrainosus, not intractable G43.009 [facility] [place] [id number] [place] [address] Aug, Sore throat J02.9 and Acute streptococcal pharyngitis J02.0 [facility] [place] [address] [id number] [place] [address] Aug, Acute upper respiratory infection, unspecified J06.9 [place] [id number] [place] [address] Jun, [facility] [place] [address] [address] Jun, Sore throat J02.9 [place] [id number] [place] [address] May, [place] [address] [place] [address] May, [facility] [place] [facility] [id number] [place] [address] Apr, [place] [address] [address] Mar, [place] [address] [address] Mar, Attention deficit disorder with hyperactivity F90.9 and ODD (oppositional defiant disorder) F91.3 [place] [address] [address] Mar, [place] [address] [address] Feb, [place] [address] [address] Jan, [place] [address] [address] Jan, Bipolar disorder, unspecified 296.80 ; Attention deficit disorder with hyperactivity 314.01 and Parent-child conflict V61.20 [place] [address] [address] Dec, [place] [address] [address] Dec, Routine child health exam V20.2 ; Dietary counseling and surveillance V65.3 ; Exercise counseling V65.41 ; Contraception management V25.9 and HEP A (ADULT) DX V05.3 [place] [address] [id number] [place] [address] Nov, Oppositional defiant disorder 313.81 ; Bipolar disorder, unspecified 296.80 ; Anxiety state, unspecified 300.00 ; Parent-child conflict V61.20 and Attention deficit disorder with hyperactivity 314.01 [place] [address] [address] Oct, [facility] [place] [facility] [address] [id number] [place] [address] Oct, [facility] [place] [facility] [address] [id number] [place] [address] Oct, [facility] [place] [facility] [address] [id number] [place] [address] September, [facility] [place] [facility] [address] [id number] [place] [address] September, [facility] [place] [facility] [address] [id number] [place] [address] September, [facility] [place] [facility] [address] [id number] [place] [address] Aug, [facility] [place] [facility] [address] [id number] [place] [address] Aug, [facility] [place] [facility] [address] [id number] [place] [address] Jul, [facility] [place] [facility] [address] [id number] [place] [address] Jul, [facility] [place] [facility] [address] [id number] [place] [address] Jul, [facility] [place] [facility] [address] [id number] [place] [address] Jul, [facility] [place] [facility] [address] [id number] [address] Jun, [facility] [place] [facility] [address] [id number] [place] [address] Jun, [facility] [place] [facility] [address] [id number] [place] [address] May, [facility] [place] [facility] [address] [id number] [place] [address] May, [facility] [place] [facility] [address] [id number] [place] [address] May, [facility] [place] [facility] [address] [id number] [place] [address] May, [facility] [place] [facility] [address] [id number] [place] [address] May, [facility] [place] [facility] [address] [id number] [place] [address] May, [facility] [place] [facility] [address] [id number] [place] [address] May, [facility] [place] [facility] [address] [id number] [place] [address] May, [facility] [place] [facility] [address] [id number] [place] [address] Mar, [facility] [place] [facility] [address] [id number] [place] [address] Mar, [facility] [place] [facility] [address] [id number] [place] [address] Feb, [facility] [place] [facility] [address] [id number] [place] [address] Feb, [facility] [place] [facility] [address] [id number] [place] [address] Jan, [facility] [place] [facility] [address] [id number] [place] [address] Jan, [facility] [place] [facility] [address] [id number], [place] [address] Nov, [facility] [place] [facility] [address] [id number] [place] [address] Nov, [facility] [place] [facility] [address] [id number] [place] [address] Nov, [facility] [place] [facility] [address] [id number] [place] [address] Nov, [facility] [place] [facility] [address] [id number] [place] [address] September, [facility] [address] [id number] [place] [address] September, [facility] [place] [facility] [address] [id number] [place] [address] Apr, [facility] [place] [facility] [address] [id number] [place] [address] Apr, [facility] [place] [facility] [address] [id number] [place] [address] Feb, [facility] [place] [facility] [address] [id number] [place] [address] Feb, [facility] [address] [id number] [place] [address] Oct, [facility] [address] [id number] [place] [address] September, [facility] [address] [id number] [place] [address] September, [facility] [address] [id number] [place] [address] Aug, [facility] [address] [id number] [place] [address] September, [facility] [address] [id number] [place] [address] Aug, [facility] [place] [facility] [address] [id number] [place] [address] Aug, [facility] [place] [facility] [address] [id number] [place] [address] Aug, [facility] [place] [facility] [address] [id number] [place] [address] Jul, [facility] [place] [facility] [address] [id number] [place] [address] Aug, [facility] [place] [facility] [address] [facility] [id number] [place] [address] Jul, IMMUNIZATIONS No Known Immunizations SOCIAL HISTORY Never Assessed REASON FOR VISIT Sore throat, cough, congestion. been sick for 3 days. [email or web address] PLAN OF CARE Activity Details Follow Up prn Reason: VITAL SIGNS Height 63.4 in 2017-05-12 Weight 145.8 lbs 2017-05-12 Temperature 99.1 degrees Fahrenheit 2017-05-12 Heart Rate 80 bpm 2017-05-12 Respiratory Rate 20 2017-05-12 BMI 25.50 kg/m2 2017-05-12 Blood pressure systolic 108 mmHg 2017-05-12 Blood pressure diastolic 72 mmHg 2017-05-12 MEDICATIONS Medication Instructions Dosage Frequency Start Date End Date Duration Status Flonase 50 MCG/ACT Nasally Once a day 1 spray in each nostril 24h Nov, 30 day(s) Active NuvaRing 0.12-0.015 MG/24HR Vaginal Place in vagina for 3 weeks, remove for one week 1 ring Mar, 30 day(s) Active Ibuprofen 200 MG Orally every 6 hrs 1 tablet as needed 6h Active RESULTS Name Result Date Reference Range STREP A (IN HOUSE) 2017-05-12 STREP A negative Control + Lot # [id number] Exp date 04 19 2018 PROCEDURES Procedure Date Ordered Result Body Site STREP A ASSAY W/OPTIC May 12, 2017 INSTRUCTIONS MEDICATIONS ADMINISTERED No Known Medications MEDICAL (GENERAL) HISTORY Type Description Date Medical History attention deficit hyperactivity disorder Medical History bicuspid aortic valve Medical History schizophrenia Medical History dysmenorrhea
--- OUTSIDE RECORDS SUMMARY | 2018-12-10 01:26 | XMS REPORT ---
Author Author JAMES Tiwari [facility] Address [address] [place] [address] Care Team Providers Care Disease Management Nurse Name Role Phone JAMES Tiwari Unavailable PROBLEMS Type Condition ICD9-CM Code QYH62-MN Code Onset Dates Condition Status SNOMED Code Problem Infection of right ear H66.91 Active 8771480702595384 Problem Acute non intractable tension-type headache G44.209 Active 265632996 Problem Attention deficit disorder with hyperactivity F90.9 Active 721706648 Problem Bipolar disorder, unspecified 296.80 Active 63131535 Problem Encounter for initial prescription of injectable contraceptive Z30.013 Active 408811829 Problem ODD (oppositional defiant disorder) F91.3 Active 77139229 ALLERGIES Substance Reaction Event Type Date Status Penicillin V Potassium Unknown Drug Allergy Feb, Active ENCOUNTERS Encounter Location Date Diagnosis [facility] [id number] [place] [address] Jul, Seasonal allergic rhinitis, unspecified trigger J30.2 [facility] [id number] [place] [address] Apr, Sore throat J02.9 and Acute nasopharyngitis J00 [facility] [id number] [place] [address] Apr, [facility] [id number] [place] [address] Mar, control counseling Z30.09 [facility] [id number] [place] [address] Feb, Infection of right ear H66.91 ; Vaginal discharge N89.8 and Sore throat J02.9 [facility] [address] [address] Feb, Encounter for Depo-Provera contraception Z30.42 ; Sore throat J02.9 ; Acute allergic rhinitis J30.9 and Acute nasopharyngitis (common cold) J00 [facility] [place] [address] [address] Dec, Other viral agents as the cause of diseases classified elsewhere B97.89 and Acute upper respiratory infection, unspecified J06.9 [place] [address] [address] Dec, Vaginal discharge N89.8 [place] [address] [address] Dec, Routine gynecological examination Z01.419 ; Encounter for counseling regarding contraception Z30.09 and Vaginal discharge N89.8 [facility] IN [address] [address] Nov, Encounter for Depo-Provera contraception Z30.42 and Viral gastroenteritis A08.4 [facility] [address] [address] Nov, Acute nonintractable headache, unspecified headache type R51 and Acute seasonal allergic rhinitis, unspecified trigger J30.2 [facility] [address] [address] September, Acute non intractable tension-type headache G44.209 [place] [address] [address] September, Urinary frequency R35.[address] [address] September, [place] [address] [address] Aug, Urinary frequency R35.0 and Encounter for Depo-Provera contraception Z30.42 [facility] [address] [place] [address] Jul, Sore throat J02.9 and Strep pharyngitis J02.0 [facility] [id number] [place] [address] May, Encounter for Depo-Provera contraception Z30.42 [facility] [id number] [place] [address] Apr, General medical exam Z00.00 and Surveillance for Depo-Provera contraception Z30.42 [facility] [id number] [place] [address] Mar, Attention deficit disorder with hyperactivity F90.9 [facility] [id number] [place] [address] Feb, Encounter for Depo-Provera contraception Z30.42 [facility] [id number] [place] [address] Feb, [facility] [id number] [place] [address] Jan, Sore throat J02.9 [facility] [id number] [place] [address] Jan, [facility] [id number] [place] [address] Dec, [facility] [id number] [place] [address] Dec, Encounter for Depo-Provera contraception Z30.42 [facility] [id number] [place] [address] Nov, Recent urinary tract infection Z87.440 and Urinary frequency R35.0 [facility] [id number] [place] [address] Nov, [facility] [id number] [place] [address] Oct, [facility] [id number] [place] [address] September, Attention deficit disorder with hyperactivity F90.9 and ODD (oppositional defiant disorder) F91.3 [place] [id number] [place] [address] September, Routine gynecological examination Z01.419 ; Encounter for counseling regarding contraception Z30.9 ; Encounter for initial prescription of injectable contraceptive Z30.013 and Encounter for Depo-Provera contraception Z30.42 [facility] [place] [id number] [place] [address] Aug, Migraine without aura and without status migrainosus, not intractable G43.009 [facility] [place] [id number] [place] [address] Aug, Sore throat J02.9 and Acute streptococcal pharyngitis J02.0 [facility] [place] [id number] [place] [address] Aug, Acute upper respiratory infection, unspecified J06.9 [place] [id number] [place] [address] Jun, [facility] [place] [id number] [place] [address] Jun, Sore throat J02.9 [place] [id number] [place] [address] May, [place] [id number] [place] [address] May, [place] [address] [address] Apr, [place] [id number] [place] [address] Mar, [place] [address] [place] [address] Mar, Attention deficit disorder with hyperactivity F90.9 and ODD (oppositional defiant disorder) F91.3 [facility] [id number] [place] [address] Mar, [facility] [id number] [place] [address] Feb, [facility] [address] [address] Jan, [facility] [address] [address] Jan, Bipolar disorder, unspecified 296.80 ; Attention deficit disorder with hyperactivity 314.01 and Parent-child conflict V61.20 [place] [address] [address] Dec, [place] [address] [address] Dec, Routine child health exam V20.2 ; Dietary counseling and surveillance V65.3 ; Exercise counseling V65.41 ; Contraception management V25.9 and HEP A (ADULT) DX V05.3 [place] [id number] [place] [address] Nov, Oppositional defiant disorder 313.81 ; Bipolar disorder, unspecified 296.80 ; Anxiety state, unspecified 300.00 ; Parent-child conflict V61.20 and Attention deficit disorder with hyperactivity 314.01 [facility] [id number] [place] [address] Oct, [facility] [address] [address] Oct, [facility] [id number] [place] [address] Oct, [facility] [address] [address] September, [facility] [place] [facility] [address] [id number] [place] [address] September, [facility] [place] [facility] [address] [id number] [place] [address] September, [facility] [place] [facility] [address] [id number] [place] [address] Aug, [facility] [place] [facility] [address] [id number] [place] [address] Aug, [facility] [place] [facility] [address] [id number] [place] [address] Jul, [facility] [place] [facility] [address] [id number] [place] [address] Jul, [facility] [place] [facility] [address] [id number] [place] [address] Jul, [facility] [place] [facility] [address] [id number] [place] [address] Jul, [facility] [place] [facility] [address] [id number] [place] [address] Jun, [facility] [place] [facility] [address] [id number] [place] [address] Jun, [facility] [place] [facility] [address] [id number] [place] [address] May, [facility] [place] [facility] [address] [id number], [place] [address] May, [facility] [place] [facility] [address] [id number] [place] [address] May, [facility] [place] [facility] [address] [id number] [place] [address] May, [facility] [place] [facility] [address] [id number] [place] [address] May, [facility] [place] [facility] [address] [id number] [place] [address] May, [facility] [place] [facility] [address] [id number] [place] [address] May, [facility] [place] [facility] [address] [id number] [place] [address] May, [facility] [place] [facility] [address] [id number] [place] [address] Mar, [facility] [place] [facility] [address] [id number] [place] [address] Mar, [facility] [place] [facility] [address] [id number] [place] [address] Feb, [facility] [place] [facility] [address] [id number] [place] [address] Feb, [facility] [place] [facility] [address] [id number] [place] [address] Jan, [facility] [place] [facility] [address] [id number] [place] [address] Jan, [facility] [place] [facility] [address] [id number] [place] [address] Nov, [facility] [place] [facility] [address] [id number] [place] [address] Nov, [facility] [place] [facility] [address] [id number] [place] [address] Nov, [facility] [place] [facility] [address] [id number] [place] [address] Nov, [facility] [place] [facility] [address] [id number] [place] [address] September, [facility] [place] [facility] [address] [id number] [place] [address] September, [facility] [place] [facility] [address] [id number] [place] [address] Apr, [facility] [place] [facility] [address] [facility] [id number], [place] [address] Apr, [facility] [address] [facility] [id number], [place] [address] Feb, [facility] [address] [facility] [id number], [place] [address] Feb, [facility] [address] [facility] [id number] [place] [address] Oct, [facility] [address] [facility] [id number] [place] [address] September, [facility] [address] [facility] [id number] [place] [address] September, [facility] [id number] [address] Aug, [facility] [address] [address] September, [facility] [id number] [address] Aug, [facility] [address] [address] Aug, [facility] [id number] [address] Aug, [facility] [id number] [address] Jul, [facility] [id number] [address] Aug, [facility] [id number] [address] Jul, IMMUNIZATIONS Vaccine Route Administration Date Status DEPO MEDROL 40 MG/ML IM Intramuscular Feb 19, 2017 Administered DEXAMETHASONE 4MG/ML (PER 1 MG) IM Intramuscular Feb 19, 2017 Administered DEPO PROVERA (150 MG/ML) IM Intramuscular Feb 19, 2017 Administered SOCIAL HISTORY Never Assessed REASON FOR VISIT pt wants depo shot today. also complaining of sore throat and congestion and cou gh. been sick for 5-6 days. pat PLAN OF CARE Activity Details Follow Up prn Reason: VITAL SIGNS Height 63.4 in 2017-02-19 Weight 152.6 lbs 2017-02-19 Temperature 98.5 degrees Fahrenheit 2017-02-19 Heart Rate 80 bpm 2017-02-19 Respiratory Rate 20 2017-02-19 BMI 26.69 kg/m2 2017-02-19 Blood pressure systolic 122 mmHg 2017-02-19 Blood pressure diastolic 74 mmHg 2017-02-19 MEDICATIONS Medication Instructions Dosage Frequency Start Date End Date Duration Status Flonase 50 MCG/ACT Nasally Once a day 1 spray in each nostril 24h Nov, 30 day(s) Active Depo-Provera 150 MG/ML 1 ml Active RESULTS Name Result Date Reference Range TEST, URINE (IN HOUSE) 2017-02-19 RESULTS negative Lot # [id number] Control + Exp date 2018 STREP A (IN HOUSE) 2017-02-19 STREP A negative Control + Lot # [id number] Exp date 2018 01 30 PROCEDURES Procedure Date Ordered Result Body Site URINE TEST Feb 19, 2017 STREP A ASSAY W/OPTIC Feb 19, 2017 THER/PROPH/DIAG INJ, SC/IM Feb 19, 2017 DEPO PROVERA (150 MG/ML) Feb 19, 2017 DEXAMETHASONE 4MG/ML (PER 1 MG) Feb 19, 2017 DEPO MEDROL 40 MG/ML Feb 19, 2017 INSTRUCTIONS MEDICATIONS ADMINISTERED No Known Medications MEDICAL (GENERAL) HISTORY Type Description Date Medical History attention deficit hyperactivity disorder Medical History bicuspid aortic valve Medical History schizophrenia Medical History dysmenorrhea
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
== END 2018-12-09 18:00 | disposition home or self-care (01) ==
LOC: EDUNIT# 17:26 → ER 17:28
DX: L50.9 Urticaria, unspecified (principal); F31.9 Bipolar disorder, unspecified; F41.9 Anxiety disorder, unspecified; F90.9 Attention-deficit hyperactivity disorder, unspecified type; Z88.0 Allergy status to penicillin; Z79.51 Long term (current) use of inhaled steroids
CPT/HCPCS: 99283

== ENCOUNTER 2020-08-14 14:53 | Emergency (ER) | payer BC, MEDICARE ==
[~2020-08-14] VITALS: Ht 157 cm; Wt 73.2 kg
[~2020-08-14 14:53] MED LIST changes: +PRD20T PO
--- NOTE | 2020-08-14 15:18 | ED GU-Female ---
General Stated Complaint: DISCHARGE 7 WKS PREG Source: patient Exam Limitations: no limitations (DALILA BOWEN,) History of Present Illness Date Seen by Provider: Aug 14, 2020 Time Seen by Provider: 15:13 Initial Comments Ms. Garzon is a 25-year-old female who presented to the [facility] ED for discharge and bleeding starting today, 08/14. She is 7 weeks today, is G1, and has not had an appointment with an OB thus far. She will be seeing Dr. Thomas for care and her first appointment is on 08/19. She has been having "clumpy" discharge and bright red bleeding, like spotting, starting today. Denies fevers/chills, chest pain, shortness of breath, difficulties with urinating, abdominal pain, blurred vision. She admits to morning sickness but resolves early and is not daily. She also was having headaches but those seem to be improved as well. She states there is unlikely probability that she has an STI and no recent sexual intercourse since her positive test. Denies any medications besides vitamins. This was a planned . Timing/Duration: this morning Severity/Quality: mild (DALILA BOWEN,) Severity/Quality: other (No pain discharge) Location: other Associated Symptoms: No nausea/vomiting, No urinary frequency (DENISHA COVARRUBIAS MD) Allergies and Home Medications Allergies Coded Allergies: Penicillins (Unverified Adverse Reaction, Mild, RASH, VOMITING, 11/28/09) Home Medications Fluticasone Propionate 9.9 Ml [place].susp, 2 SPRAYS NS BID Prescribed by: MONY MILLER on 05/15/17818 Guanfacine Hcl 3 Mg Tab.sr.24h, 3 PO DAILY, (Reported) Ibuprofen 800 Mg Tab, 600 MG PO Q8HR PRN Prescribed by: GIANNA AKHTAR on 05/30/12 182 Lisdexamfetamine Dimesylate 70 Mg Capsule, 70 PO DAILY, (Reported) Loratadine/Pseudoephedrine 1 Each Tab.er.12h, 1 EACH PO BID Prescribed by: MONY MILLER on 05/15/17818 Prednisone 10 Mg Tab, 40 MG PO DAILY Prescribed by: MONY MILLER on 10/20/16 0048 Prednisone 20 Mg Tab, 40 MG PO DAILY Prescribed by: DENISHA COVARRUBIAS on 12/09/18 1748 [Trinessa] , DAILY, (Reported) Patient Home Medication List Home Medication List Reviewed: Yes (DALILA BOWEN,) Home Medication List Reviewed: Yes (DENISHA COVARRUBIAS MD) Review of Systems Review of Systems Constitutional: No chills, No fever EENTM: No blurred vision Respiratory: No cough, No short of breath Cardiovascular: No chest pain, No palpitations Gastrointestinal: nausea, vomiting Genitourinary: denies dysuria, denies frequency Musculoskeletal: No back pain, No muscle pain Skin: No dryness, No rash Psychiatric/Neurological: Headache Endocrine: No Symptoms Reported Hematologic/Lymphatic: No Symptoms Reported (DALILA BOWEN,) All Other Systemes Reviewed Negative Unless Noted: Yes (DENISHA COVARRUBIAS MD) Past Hpttiuj-Amjxyx-Dkmnaf Hx Past Med/Social Hx: Reviewed Nursing Past Med/Soc Hx (DENISHA COVARRUBIAS MD) Patient Social History Alcohol Use: Denies Use Smoking Status: Never a Smoker 2nd Hand Smoke Exposure: No Recent Hopitalizations: No (DALILA BOWEN,) Immunizations Up To Date Tetanus Booster (TDap): Less than 5yrs PED Vaccines UTD: Yes (DALILA BOWEN,) Seasonal Allergies Seasonal Allergies: No (DALILA BOWEN,) Past Medical History Surgeries: No Respiratory: No Cardiac: Yes High Cholesterol Neurological: No Genitourinary: No Gastrointestinal: No Musculoskeletal: No Endocrine: No HEENT: No Cancer: No Psychosocial: Yes ADD/ADHD, Anxiety, Bipolar, Depression Integumentary: No Blood Disorders: No (DALILA BOWEN,) Family Medical History Reviewed Nursing Family Hx (DENISHA COVARRUBIAS MD) No Pertinent Family Hx (DALILA BOWEN,) Physical Exam Vital Signs Vital Signs - First Documented 08/14/20 15:03 Temp 36.3 Pulse 81 Resp 14 B/P (MAP) 123/90 (101) Pulse Ox 98 O2 Delivery Room Air (DENISHA COVARRUBIAS MD) Vital Signs Capillary Refill : (DALILA BOWEN,) Height, Weight, BMI Height: 5'3.00" Weight: 145lbs. oz. [id number]; 21.09 BMI Method:Stated General Appearance: WD/WN, no apparent distress HEENT: PERRL/EOMI, pharynx normal Neck: supple, normal inspection Cardiovascular: regular rate, rhythm, no murmur Respiratory: lungs clear, normal breath sounds Gastrointestinal: normal bowel sounds, non tender, soft Extremities: no pedal edema, no calf tenderness Neurologic/Psychiatric: alert, normal mood/affect Skin: normal color, warm/dry Lymphatic: no adenopathy (DALILA BOWEN,) General Appearance: WD/WN, no apparent distress Cardiovascular: regular rate, rhythm, no murmur Respiratory: normal breath sounds Gastrointestinal: non tender, soft Neurologic/Psychiatric: alert, oriented x 3 (DENISHA COVARRUBIAS MD) Progress/Results/Core Measures Suspected Sepsis SIRS Temperature: Pulse: Respiratory Rate: Blood Pressure / Mean: (DALILA BOWEN,) Results/Orders Lab Results Laboratory Tests Test 08/14/20 15:31 08/14/20 15:41 Range/Units Urine Color YELLOW Urine Clarity CLEAR Urine pH 7.0 5-9 Urine Specific [place] >=1.030 1.016-1.022 Urine Protein NEGATIVE NEGATIVE Urine Glucose (UA) NEGATIVE NEGATIVE Urine Ketones NEGATIVE NEGATIVE Urine Nitrite NEGATIVE NEGATIVE Urine Bilirubin NEGATIVE NEGATIVE Urine Urobilinogen 0.2 < = 1.0 MG/DL Urine Leukocyte Esterase NEGATIVE NEGATIVE Urine RBC (Auto) NEGATIVE NEGATIVE Urine RBC NONE /HPF Urine WBC 2-5 /HPF Urine Squamous Epithelial Cells 2-5 /HPF Urine Crystals NONE /LPF Urine Bacteria MODERATE H /HPF Urine Casts NONE /LPF Urine Mucus NEGATIVE /LPF Urine Culture Indicated NO Human Chorionic Gonadotropin, Quant 96215 H <5 MIU/ML (DENISHA COVARRUBIAS MD) Micro Results Microbiology 08/14/20 Wet Prep - Final, Complete (DENISHA COVARRUBIAS MD) My Orders Orders - DENISHA COVARRUBIAS MD Wet Prep (08/14/20 15:24) Ua Culture If Indicated (08/14/20 15:24) Abo Rh Type (08/14/20 15:24) Neis Sascha Dna Urine Test (08/14/20 15:24) Chlamydia Trachomatis Urine (08/14/20 15:24) Hcg,Quantitative (08/14/20 15:27) (DENISHA COVARRUBIAS MD) Vital Signs/I&O 08/14/20 15:03 Temp 36.3 Pulse 81 Resp 14 B/P (MAP) 123/90 (101) Pulse Ox 98 O2 Delivery Room Air (DENISHA COVARRUBIAS MD) Vital Signs/I&O Capillary Refill : (DALILA BOWEN,) Progress Note : Time: 15:19 Progress Note Will order U/A, STI check, BV/trich, basic labs, serum test. (DALILA BOWEN,) Progress Note : Progress Note I have seen and evaluated the patient and agree with above except as indicated. I have directed the plan of care. Patient is here with thick discharge that she states is blood-tinged. She does have a long history with bacterial vagin osis. She has not been sexually active since conception. She has had both urine and blood test showing positive results. Follows with Dr. Thomas later this week. Denies pain or persistent bleeding. Denies dysuria. Evaluation as above. Plan to check UA and STIs. Self swab for BV. We will check hCG quantitative level. Bedside ultrasound performed and I was unable to determine intrauterine she had moderate amount of overlying bowel complicating picture. No pain on transabdominal ultrasound. Monitor patient. 1720: Patient's blood type is AB+. She is positive for bacterial vaginosis. We will initiate treatment now continue outpatient. She will need to follow-up with Dr. Thomas for further evaluation. I did discuss that this is a threatened miscarriage and I was unable to see intrauterine although it was obscured by bowel gas and further difficulty due to early . She will follow-up to verify viable . Discharged home with return precautions. Patient verbalized understanding of instructions and agreement with plan. (DENISHA COVARRUBIAS MD) Departure Impression Primary Impression: BV (bacterial vaginosis) Additional Impression: Threatened miscarriage in early Disposition: HOME, SELF-CARE Condition: Stable Departure-Patient Inst. Decision time for Depature: 17:24 (DENISHA COVARRUBIAS MD) Referrals: [facility] (PCP/Family) Primary Care Physician Patient Instructions: Bacterial Vaginosis ED, Threatened Miscarriage Add. Discharge Instructions: Pelvic rest until cleared by your doctor. Follow-up with Dr. Thomas this week as scheduled. Take medications as directed. Return for worse pain, fever, vomiting, weakness, breathing problems, bleeding greater than 2 pads per hour for more than 2 hours or other concerns as needed. Scripts Metronidazole (Metronidazole) 500 Mg Tablet 500 MG PO BID, #13 TAB 0 Refills Prov: DENISHA COVARRUBIAS MD 08/14/20 Work/School Note: Work Release Form Date Seen in the Emergency Department: Aug 14, 2020 Return to Work: Aug 16, 2020 Restrictions: No Restrictions Copy Copies To 1: POLO THOMAS MDDALILA LEARY, Aug 14, 2020 15:18 DENISHA COVARRUBIAS MD Aug 14, 2020 16:03
[2020-08-14 15:37] LABS: BILIRUBIN,URINE NEGATIVE (NEGATIVE); CLARITY,URINE CLEAR; COLOR,URINE YELLOW; GLUCOSE, URINE (UA) NEGATIVE (NEGATIVE); KETONES,URINE NEGATIVE (NEGATIVE); LEUKOCYTE ESTERASE ,URINE NEGATIVE (NEGATIVE); NITRITE,URINE NEGATIVE (NEGATIVE); PROTEIN,URINE NEGATIVE (NEGATIVE)
[2020-08-14 15:48] LABS: BACTERIA,URINE MODERATE /HPF
[2020-08-14] MEDS ORDERED: METR-145 PO (17:25)
[2020-08-14] MEDS ORDERED: metroNIDAZOLE 500 MG (FLAGYL) TAB PO STA (17:27)
[2020-08-14 18:00] VITALS: BP 117/70
== END 2020-08-14 18:00 | disposition home or self-care (01) ==
LOC: EDUNIT# 14:53 → ER 14:57
DX: O20.0 Threatened abortion (principal); N76.0 Acute vaginitis; Z88.0 Allergy status to penicillin; Z3A.01 Less than 8 weeks gestation of pregnancy; Z79.52 Long term (current) use of systemic steroids
CPT/HCPCS: 36415; 81000; 84702; 86900; 86901; 87210; 87491; 87591; 99282

== ENCOUNTER 2020-09-14 19:36 | Emergency (ER) | payer BC, MEDICARE ==
[~2020-09-14] VITALS: Ht 160 cm; Wt 74.8 kg
[~2020-09-14 19:36] MED LIST changes: +METR-145 PO
--- NOTE | 2020-09-14 20:01 | ED GU-Female ---
General Stated Complaint: VAGINAL BLEEDING 11 WKS Source: patient Exam Limitations: no limitations History of Present Illness Date Seen by Provider: Sep 14, 2020 Time Seen by Provider: 19:46 Initial Comments Patient arrives ER by private conveyance from home with chief complaint that she was laying on the couch watching TV and she started having the urge to urinate. Him to the bathroom and noticed it was bright red blood in the stool. She had not had a bowel movement. She has been regular with her bowels has had no diarrhea or constipation. No abdominal discomfort. She is a G1, P0 patient of Dr. Keane at 11 weeks 2 days with LMP of June 27, 2020. She had a 7-week ultrasound revealing twin intrauterine gestations. She is had no problems with the thus far except for a case of BV which was successfully treated and she has had no symptoms since. No discharge nausea vomiting fever chills cough shortness of air. Last time she had intercourse or anything in the vagina she states is before she found out she was . Allergies and Home Medications Allergies Coded Allergies: Penicillins (Unverified Adverse Reaction, Mild, RASH, VOMITING, 11/28/09) Home Medications Fluticasone Propionate 9.9 Ml [place].susp, 2 SPRAYS NS BID Prescribed by: MONY MILLER on 05/15/17818 Guanfacine Hcl 3 Mg Tab.sr.24h, 3 PO DAILY, (Reported) Ibuprofen 800 Mg Tab, 600 MG PO Q8HR PRN Prescribed by: GIANNA AKHTAR on 05/30/12 1823 Lisdexamfetamine Dimesylate 70 Mg Capsule, 70 PO DAILY, (Reported) Loratadine/Pseudoephedrine 1 Each Tab.er.12h, 1 EACH PO BID Prescribed by: MONY MILLER on 05/15/17 08 Metronidazole 500 Mg Tablet, 500 MG PO BID Prescribed by: DENISHA COVARRUBIAS on 08/14/20 1725 Metronidazole 500 Mg Tablet, 500 MG PO BID Prescribed by: BRANDIE VILA on 09/14/202058 Prednisone 10 Mg Tab, 40 MG PO DAILY Prescribed by: MONY MILLER on 10/20/16 0048 Prednisone 20 Mg Tab, 40 MG PO DAILY Prescribed by: DENISHA COVARRUBIAS on 12/09/18 1748 [Trinessa] , DAILY, (Reported) Patient Home Medication List Home Medication List Reviewed: Yes Review of Systems Review of Systems Constitutional: No chills, No diaphoresis EENTM: No ear discharge, No ear pain Respiratory: No cough, No short of breath Cardiovascular: No edema, No Hx of Intervention, No palpitations Gastrointestinal: No abdominal pain, No nausea, No vomiting Genitourinary: denies burning, denies discharge, denies dysuria; frequency, hematuria : Yes LMP: Jun 27, 2020 Musculoskeletal: No back pain, No joint pain All Other Systemes Reviewed Negative Unless Noted: Yes Past Yljccsl-Valacx-Tvlxhl Hx Patient Social History Alcohol Use: Denies Use Smoking Status: Never a Smoker 2nd Hand Smoke Exposure: No Recent Hopitalizations: No Immunizations Up To Date Tetanus Booster (TDap): Less than 5yrs PED Vaccines UTD: Yes Seasonal Allergies Seasonal Allergies: No Past Medical History Surgeries: No Respiratory: No Cardiac: Yes High Cholesterol Neurological: No Genitourinary: No Gastrointestinal: No Musculoskeletal: No Endocrine: No HEENT: No Cancer: No Psychosocial: Yes ADD/ADHD, Anxiety, Bipolar, Depression Integumentary: No Blood Disorders: No Family Medical History No Pertinent Family Hx Physical Exam Vital Signs Capillary Refill : Height, Weight, BMI Height: 5'3.00" Weight: 145lbs. oz. 65.232332zd; 29.00 BMI Method:Stated General Appearance: WD/WN, other (anxious affect) HEENT: normal ENT inspection, pharynx normal Neck: full range of motion, normal inspection Cardiovascular: normal peripheral pulses, regular rate, rhythm Respiratory: no respiratory distress, no accessory muscle use Gastrointestinal: normal bowel sounds, non tender, soft, no organomegaly Extremities: normal range of motion, non-tender, normal inspection Neurologic/Psychiatric: alert, oriented x 3 Skin: normal color, warm/dry Progress/Results/Core Measures Suspected Sepsis SIRS Temperature: Pulse: Respiratory Rate: Laboratory Tests 09/14/20 19:55: White Blood Count 11.4H Blood Pressure / Mean: Laboratory Tests 09/14/20 19:55: Creatinine 0.70, Platelet Count 265, Total Bilirubin 0.2 Results/Orders Lab Results Laboratory Tests Test 09/14/20 19:55 Range/Units White Blood Count 11.4 H 4.3-11.0 10^3/uL Red Blood Count 4.36 3.80-5.11 10^6/uL Hemoglobin 12.3 11.5-16.0 g/dL Hematocrit 37 35-52 % Mean Corpuscular Volume 85 80-99 fL Mean Corpuscular Hemoglobin 28 25-34 pg Mean Corpuscular Hemoglobin Concent 33 32-36 g/dL Red Cell Distribution Width 13.3 10.0-14.5 % Platelet Count 265 130-400 10^3/uL Mean Platelet Volume 12.0 9.0-12.2 fL Immature Granulocyte % (Auto) 0 % Neutrophils (%) (Auto) 72 42-75 % Lymphocytes (%) (Auto) 19 12-44 % Monocytes (%) (Auto) 8 0-12 % Eosinophils (%) (Auto) 1 0-10 % Basophils (%) (Auto) 0 0-10 % Neutrophils # (Auto) 8.2 H 1.8-7.8 10^3/uL Lymphocytes # (Auto) 2.2 1.0-4.0 10^3/uL Monocytes # (Auto) 0.9 0.0-1.0 10^3/uL Eosinophils # (Auto) 0.2 0.0-0.3 10^3/uL Basophils # (Auto) 0.0 0.0-0.1 10^3/uL Immature Granulocyte # (Auto) 0.0 0.0-0.1 10^3/uL Urine Color YELLOW Urine Clarity CLEAR Urine pH 7.0 5-9 Urine Specific [place] 1.020 1.016-1.022 Urine Protein NEGATIVE NEGATIVE Urine Glucose (UA) NEGATIVE NEGATIVE Urine Ketones NEGATIVE NEGATIVE Urine Nitrite NEGATIVE NEGATIVE Urine Bilirubin NEGATIVE NEGATIVE Urine Urobilinogen 0.2 < = 1.0 MG/DL Urine Leukocyte Esterase NEGATIVE NEGATIVE Urine RBC (Auto) 2+ H NEGATIVE Urine RBC NONE /HPF Urine WBC NONE /HPF Urine Squamous Epithelial Cells NONE /HPF Urine Crystals PRESENT H /LPF Urine Amorphous Sediment FEW MALI PHOSPHATE H /LPF Urine Bacteria FEW H /HPF Urine Casts NONE /LPF Urine Mucus NEGATIVE /LPF Urine Culture Indicated NO Sodium Level 137 135-145 MMOL/L Potassium Level 3.6 3.6-5.0 MMOL/L Chloride Level 106 98-107 MMOL/L Carbon Dioxide Level 21 21-32 MMOL/L Anion Gap 10 5-14 MMOL/L Blood Urea Nitrogen 7 7-18 MG/DL Creatinine 0.70 0.60-1.30 MG/DL Estimat Glomerular Filtration Rate > 60 BUN/Creatinine Ratio 10 Glucose Level 112 H 70-105 MG/DL Calcium Level 9.4 8.5-10.1 MG/DL Corrected Calcium 9.7 8.5-10.1 MG/DL Total Bilirubin 0.2 0.1-1.0 MG/DL Aspartate Amino Transf (AST/SGOT) 14 5-34 U/L Alanine Aminotransferase (ALT/SGPT) 10 0-55 U/L Alkaline Phosphatase 67 40-136 U/L Total Protein 6.9 6.4-8.2 GM/DL Albumin 3.6 3.2-4.5 GM/DL Human Chorionic Gonadotropin, Quant [id number] H <5 MIU/ML My Orders Orders - BRANDIE VILA Cbc With Automated Diff (09/14/20 19:54) Comprehensive Metabolic Panel (09/14/20 19:54) Ua Culture If Indicated (09/14/20 19:54) Urine Bedside (09/14/20 19:54) Hcg,Quantitative (09/14/20 19:54) Wet Prep (09/14/20 20:01) Vital Signs/I&O Capillary Refill : Progress Note #1: Time: 20:00 Progress Note Plan to get some urine and lab including a quantitative hCG. Uncertain where the bleeding is coming from so we will do a pelvic exam to look at the cervical os and vaginal vault. She is not having any abdominal pain at this time. We will also get a wet prep. Progress Note #2: Time: 20:57 Progress Note Clue cells on wet prep. Plan to treat her with Flagyl and have her follow-up in 2 days for repeat hCG outpatient. Departure Impression Primary Impression: BV (bacterial vaginosis) Additional Impressions: Hematuria Qualified Codes: R31.9 - Hematuria, unspecified Qualified Codes: Z3A.11 - 11 weeks gestation of Disposition: 01 HOME, SELF-CARE Condition: Stable Departure-Patient Inst. Decision time for Depature: 20:58 Referrals: [facility] (PCP/Family) Primary Care Physician Patient Instructions: Bacterial Vaginosis (DC) Add. Discharge Instructions: The blood seems to be coming from the urine and may be related to your bacterial vaginosis which is not a sexually transmitted infection but it is an infection of the vagina. This is typically associated with problems with premature delivery and so it is essential that we treat it even though you are not having significant symptoms otherwise. Pelvic rest, nothing in the vagina until you are cleared by your marketing project specialist. Keep your follow-up appointment on with your marketing project specialist. Flagyl 1 tablet twice a day with food for the next week. Drink plenty of fluids. Scripts Metronidazole (Flagyl) 500 Mg Tablet 500 MG PO BID for 7 Days, #14 TAB 0 Refills Prov: BRANDIE VILA 09/14/20 Copy Copies To 1: BRIANNA PARK DO BRANDIE VILA Sep 14, 2020 20:01
[2020-09-14 20:14] LABS: BASOPHILS % (AUTO) 0 % (0-10); EOSINOPHILS # (AUTO) 0.2 10^3/uL (0.0-0.3); EOSINOPHILS % (AUTO) 1 % (0-10); HEMATOCRIT 37 % (35-52); HEMOGLOBIN 12.3 g/dL (11.5-16.0); LYMPHOCYTES # (AUTO) 2.2 10^3/uL (1.0-4.0); LYMPHOCYTES % (AUTO) 19 % (12-44); MEAN CORPUSCULAR HEMOGLOBIN 28 pg (25-34); MEAN CORPUSCULAR HGB CONC 33 g/dL (32-36); MEAN CORPUSCULAR VOLUME 85 fL (80-99); MONOCYTES # (AUTO) 0.9 10^3/uL (0.0-1.0); MONOCYTES % (AUTO) 8 % (0-12); NEUTROPHILS # (AUTO) 8.2 10^3/uL (1.8-7.8); NEUTROPHILS % (AUTO) 72 % (42-75); PLATELET COUNT 265 10^3/uL (130-400); WHITE BLOOD COUNT 11.4 10^3/uL (4.3-11.0)
[2020-09-14 20:30] LABS: ALANINE AMINOTRANSFERASE 10 U/L (0-55); ALBUMIN 3.6 GM/DL (3.2-4.5); ALKALINE PHOSPHATASE 67 U/L (40-136); BILIRUBIN,TOTAL 0.2 MG/DL (0.1-1.0); BUN/CREATININE RATIO 10; CALCIUM 9.4 MG/DL (8.5-10.1); CARBON DIOXIDE 21 MMOL/L (21-32); CHLORIDE 106 MMOL/L (98-107); GFR ESTIMATED > 60; GLUCOSE 112 MG/DL (70-105); POTASSIUM 3.6 MMOL/L (3.6-5.0); SODIUM 137 MMOL/L (135-145); TOTAL PROTEIN 6.9 GM/DL (6.4-8.2)
[2020-09-14 20:45] LABS: BILIRUBIN,URINE NEGATIVE (NEGATIVE); CLARITY,URINE CLEAR; COLOR,URINE YELLOW; GLUCOSE, URINE (UA) NEGATIVE (NEGATIVE); KETONES,URINE NEGATIVE (NEGATIVE); LEUKOCYTE ESTERASE ,URINE NEGATIVE (NEGATIVE); NITRITE,URINE NEGATIVE (NEGATIVE); PROTEIN,URINE NEGATIVE (NEGATIVE)
[2020-09-14 20:54] LABS: AMORPHOUS SEDIMENT,UR FEW AMOR PHOSPHATE /LPF; BACTERIA,URINE FEW /HPF
[2020-09-14] MEDS ORDERED: METR500T PO (20:59)
[2020-09-14 21:45] VITALS: BP 124/86
== END 2020-09-14 21:45 | disposition home or self-care (01) ==
LOC: EDUNIT# 19:36 → ER 19:38
DX: O23.591 Infection of other part of genital tract in pregnancy, first trimester (principal); R31.9 Hematuria, unspecified; F90.9 Attention-deficit hyperactivity disorder, unspecified type; Z3A.11 11 weeks gestation of pregnancy; Z88.0 Allergy status to penicillin; Z79.52 Long term (current) use of systemic steroids; Z79.899 Other long term (current) drug therapy
CPT/HCPCS: 36415; 80053; 81000; 84702; 85025; 87210; 99284

== ENCOUNTER 2020-10-30 23:00 | Emergency (ER) | payer BC, MEDICARE ==
[~2020-10-30] VITALS: Ht 160 cm; Wt 74.8 kg
[~2020-10-30 23:00] MED LIST changes: +METR500T PO
[2020-10-30] MEDS ORDERED: LACTATED RINGERS 1,000 ML IV ONE (23:30)
[2020-10-30 23:35] LABS: BASOPHILS % (AUTO) 0 % (0-10); EOSINOPHILS # (AUTO) 0.2 10^3/uL (0.0-0.3); EOSINOPHILS % (AUTO) 2 % (0-10); HEMATOCRIT 34 % (35-52); HEMOGLOBIN 11.4 g/dL (11.5-16.0); LYMPHOCYTES # (AUTO) 2.2 10^3/uL (1.0-4.0); LYMPHOCYTES % (AUTO) 15 % (12-44); MEAN CORPUSCULAR HEMOGLOBIN 29 pg (25-34); MEAN CORPUSCULAR HGB CONC 33 g/dL (32-36); MEAN CORPUSCULAR VOLUME 85 fL (80-99); MEAN PLATELET VOLUME 11.8 fL (9.0-12.2); MONOCYTES # (AUTO) 1.3 10^3/uL (0.0-1.0); MONOCYTES % (AUTO) 9 % (0-12); NEUTROPHILS # (AUTO) 10.4 10^3/uL (1.8-7.8); NEUTROPHILS % (AUTO) 73 % (42-75); PLATELET COUNT 234 10^3/uL (130-400); WHITE BLOOD COUNT 14.2 10^3/uL (4.3-11.0)
[2020-10-30 23:42] LABS: ALBUMIN 3.4 GM/DL (3.2-4.5); CHLORIDE 105 MMOL/L (98-107); POTASSIUM 3.5 MMOL/L (3.6-5.0); SODIUM 136 MMOL/L (135-145)
[2020-10-30 23:43] LABS: CALCIUM 8.9 MG/DL (8.5-10.1)
[2020-10-30 23:44] LABS: AMYLASE 74 U/L (25-125); GLUCOSE 98 MG/DL (70-105)
[2020-10-30 23:45] LABS: TOTAL PROTEIN 6.4 GM/DL (6.4-8.2)
[2020-10-30 23:46] LABS: BILIRUBIN,TOTAL 0.2 MG/DL (0.1-1.0); CARBON DIOXIDE 19 MMOL/L (21-32)
[2020-10-30 23:48] LABS: ALKALINE PHOSPHATASE 59 U/L (40-136); CREATININE SERUM 0.59 MG/DL (0.60-1.30); GFR ESTIMATED > 60
[2020-10-30 23:49] LABS: BUN/CREATININE RATIO 12
[2020-10-30 23:51] LABS: ALANINE AMINOTRANSFERASE 12 U/L (0-55); MAGNESIUM 1.8 MG/DL (1.6-2.4)
[2020-10-30 23:52] LABS: LIPASE 46 U/L (8-78)
[2020-10-31 00:07] LABS: BILIRUBIN,URINE NEGATIVE (NEGATIVE); CLARITY,URINE CLEAR; COLOR,URINE YELLOW; GLUCOSE, URINE (UA) NEGATIVE (NEGATIVE); KETONES,URINE NEGATIVE (NEGATIVE); LEUKOCYTE ESTERASE ,URINE NEGATIVE (NEGATIVE); NITRITE,URINE NEGATIVE (NEGATIVE); PROTEIN,URINE NEGATIVE (NEGATIVE)
[2020-10-31 00:17] LABS: BACTERIA,URINE NEGATIVE /HPF; RBC,URINE RARE /HPF
[2020-10-31] MEDS ORDERED: ACETAMINOPHEN 500 MG TAB (TYLENOL) PO ONE (00:45)
[2020-10-31] MEDS ORDERED: LACTATED RINGERS 1,000 ML IV ONE (00:45)
--- NOTE | 2020-10-31 01:06 | ED General ---
General Chief Complaint: OB < 20 WEEKS Stated Complaint: ZAPATA / CRAMPS / 18 W PREG Source of Information: Patient History of Present Illness Date Seen by Provider: Oct 30, 2020 Time Seen by Provider: 23:12 Initial Comments PT ARRIVES VIA POV FROM HOME WITH MALE S.O. PT STATES SHE IS 18 WEEKS WITH TWINS PT IS AB 0 HAD ROUTINE OB APPOINTMENT SUNDAY WITH DR. ODONNELL HAS NOT HAD ANY PROBLEMS WITH STATES SINCE YESTERDAY AFTERNOON, SHE HAS BEEN HAVING GENERALIZED ABDOMINAL CRAMPING, HAS ALSO BEEN A LITTLE DIZZY HAD A HEADACHE--HEADACHE IS IN BOTH TEMPLES PT HAS FREQUENT HEADACHES NORMALLY TOOK TYLENOL A COUPLE OF HOURS AGO WITHOUT RELIEF, AND TOOK 1 EXCEDRIN YESTERDAY WITHOUT RELIEF, OTHERWISE HAS NOT TAKEN ANYTHING ELSE FOR PAIN NO VISION CHANGES NO FEVER OR RECENT ILLNESS NO URI/SINUS/ALLERGY SYMPTOMS NO NAUSEA/VOMITING/DIARRHEA. HAD NORMAL BM TODAY. NO VAGINAL BLEEDING OR DISCHARGE NO SWELLING IN FEET/ANKLES NO CHEST PAIN NO SHORTNESS OF BREATH NO PALPITATIONS PT HAS HAD ACTIVE MOVEMENT DENIES ANY LIFTING, ETC STATES SHE HAS BEEN OUTSIDE IN THE HEAT THE LAST COUPLE OF DAYS--HEAT INDEX 102 THE LAST 2 DAYS HAS NOT ATTEMPTED TO CONTACT DR. ODONNELL FOR THIS PROBLEM PT STATES SHE DOES NOT REALLY DRINK FLUIDS--ONLY DRINKS A GLASS OR TWO A DAY. PCP: [facility] RESERVES CLERK: DR. ODONNELL Allergies and Home Medications Allergies Coded Allergies: Penicillins (Unverified Adverse Reaction, Mild, RASH, VOMITING, 11/28/09) Home Medications Fluticasone Propionate 9.9 Ml [place].susp, 2 SPRAYS NS BID Prescribed by: MONY MILLER on 05/15/17818 Guanfacine Hcl 3 Mg Tab.sr.24h, 3 PO DAILY, (Reported) Ibuprofen 800 Mg Tab, 600 MG PO Q8HR PRN Prescribed by: GIANNA AKHTAR on 05/30/12 1823 Lisdexamfetamine Dimesylate 70 Mg Capsule, 70 PO DAILY, (Reported) Loratadine/Pseudoephedrine 1 Each Tab.er.12h, 1 EACH PO BID Prescribed by: MONY MILLER on 05/15/17818 Metronidazole 500 Mg Tablet, 500 MG PO BID Prescribed by: DENISHA COVARRUBIAS on 08/14/20 1725 Metronidazole 500 Mg Tablet, 500 MG PO BID Prescribed by: BRANDIE VILA on 09/14/202058 Prednisone 10 Mg Tab, 40 MG PO DAILY Prescribed by: MONY MILLER on 10/20/1647 Prednisone 20 Mg Tab, 40 MG PO DAILY Prescribed by: DENISHA COVARRUBIAS on 12/09/18 1748 [Trinessa] , DAILY, (Reported) Patient Home Medication List Home Medication List Reviewed: Yes Review of Systems Review of Systems Constitutional: no symptoms reported; No dizziness, No fever, No malaise EENTM: no symptoms reported; No blurred vision, No double vision, No nose congestion, No throat pain Respiratory: no symptoms reported; No cough, No short of breath Cardiovascular: no symptoms reported; No chest pain, No edema, No palpitations, No syncope Gastrointestinal: see HPI, abdominal pain; No constipation, No diarrhea, No loss of appetite, No nausea, No vomiting Genitourinary: no symptoms reported; No decreased output : Yes Musculoskeletal: no symptoms reported; No back pain Skin: no symptoms reported Psychiatric/Neurological: See HPI, Headache; Denies Numbness, Denies Paresthesia, Denies Seizure, Denies Tingling, Denies Weakness Hematologic/Lymphatic: No Symptoms Reported Immunological/Allergic: no symptoms reported Past Pudizfx-Epexys-Umkebs Hx Past Med/Social Hx: Reviewed and Corrections made Patient Social History Alcohol Use: Denies Use Drug of Choice: DENIES Smoking Status: Never a Smoker 2nd Hand Smoke Exposure: No Recent Hopitalizations: No Immunizations Up To Date Tetanus Booster (TDap): Less than 5yrs PED Vaccines UTD: Yes Seasonal Allergies Seasonal Allergies: No Past Medical History Surgeries: No Respiratory: No Cardiac: Yes High Cholesterol Neurological: Yes Headaches /Migraines Female Reproductive Disorders: Denies Genitourinary: No Gastrointestinal: No Musculoskeletal: No Endocrine: No HEENT: No Cancer: No Psychosocial: Yes ADD/ADHD, Anxiety, Bipolar, Depression Integumentary: No Blood Disorders: No Family Medical History No Pertinent Family Hx Physical Exam Vital Signs Vital Signs - First Documented 10/30/20 23:11 Temp 36.5 Pulse 93 Resp 18 B/P (MAP) 109/65 (80) Pulse Ox 98 O2 Delivery Room Air Capillary Refill : Height, Weight, BMI Height: 5'3.00" Weight: 145lbs. oz. 65.948782ir; 29.00 BMI Method:Stated General Appearance: No Apparent Distress, WD/WN HEENT: PERRL/EOMI, TMs Normal, Normal ENT Inspection, Pharynx Normal, Moist Mucous Membranes Neck: Full Range of Motion, Normal Inspection, Non Tender, Supple Respiratory: Normal Breath Sounds, No Accessory Muscle Use, No Respiratory Distress Cardiovascular: Regular Rate, Rhythm, No Edema, No JVD, No Murmur, Normal Peripheral Pulses Gastrointestinal: Normal Bowel Sounds, Soft, Tenderness (VERY MILD PINPOINT RIGHT MID ABDOMINAL TENDERNESS. NO REBOUND), Other (GRAVID UTERUS WITH FUNDUS 1- 2 FB'S ABOVE UMBILICUS. NO FUNDAL TENDERNESS. FHT'S 139 AND 140. 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 Norm as Tested Skin: Normal Color (PT IS BLACK), Warm/Dry; No Rash Progress/Results/Core Measures Suspected Sepsis SIRS Temperature: Pulse: Respiratory Rate: Laboratory Tests 10/30/20 23:20: White Blood Count 14.2H Blood Pressure / Mean: Laboratory Tests 10/30/20 23:20: Creatinine 0.59L, Platelet Count 234, Total Bilirubin 0.2 Results/Orders Lab Results Laboratory Tests Test 10/30/20 23:20 10/30/20 23:58 Range/Units White Blood Count 14.2 H 4.3-11.0 10^3/uL Red Blood Count 4.00 3.80-5.11 10^6/uL Hemoglobin 11.4 L 11.5-16.0 g/dL Hematocrit 34 L 35-52 % Mean Corpuscular Volume 85 80-99 fL Mean Corpuscular Hemoglobin 29 25-34 pg Mean Corpuscular Hemoglobin Concent 33 32-36 g/dL Red Cell Distribution Width 13.6 10.0-14.5 % Platelet Count 234 130-400 10^3/uL Mean Platelet Volume 11.8 9.0-12.2 fL Immature Granulocyte % (Auto) 1 % Neutrophils (%) (Auto) 73 42-75 % Lymphocytes (%) (Auto) 15 12-44 % Monocytes (%) (Auto) 9 0-12 % Eosinophils (%) (Auto) 2 0-10 % Basophils (%) (Auto) 0 0-10 % Neutrophils # (Auto) 10.4 H 1.8-7.8 10^3/uL Lymphocytes # (Auto) 2.2 1.0-4.0 10^3/uL Monocytes # (Auto) 1.3 H 0.0-1.0 10^3/uL Eosinophils # (Auto) 0.2 0.0-0.3 10^3/uL Basophils # (Auto) 0.0 0.0-0.1 10^3/uL Immature Granulocyte # (Auto) 0.1 0.0-0.1 10^3/uL Sodium Level 136 135-145 MMOL/L Potassium Level 3.5 L 3.6-5.0 MMOL/L Chloride Level 105 98-107 MMOL/L Carbon Dioxide Level 19 L 21-32 MMOL/L Anion Gap 12 5-14 MMOL/L Blood Urea Nitrogen 7 7-18 MG/DL Creatinine 0.59 L 0.60-1.30 MG/DL Estimat Glomerular Filtration Rate > 60 BUN/Creatinine Ratio 12 Glucose Level 98 70-105 MG/DL Calcium Level 8.9 8.5-10.1 MG/DL Corrected Calcium 9.4 8.5-10.1 MG/DL Magnesium Level 1.8 1.6-2.4 MG/DL Total Bilirubin 0.2 0.1-1.0 MG/DL Aspartate Amino Transf (AST/SGOT) 14 5-34 U/L Alanine Aminotransferase (ALT/SGPT) 12 0-55 U/L Alkaline Phosphatase 59 40-136 U/L Total Protein 6.4 6.4-8.2 GM/DL Albumin 3.4 3.2-4.5 GM/DL Amylase Level 74 25-125 U/L Lipase 46 8-78 U/L Urine Color YELLOW Urine Clarity CLEAR Urine pH 6.0 5-9 Urine Specific [place] 1.025 H 1.016-1.022 Urine Protein NEGATIVE NEGATIVE Urine Glucose (UA) NEGATIVE NEGATIVE Urine Ketones NEGATIVE NEGATIVE Urine Nitrite NEGATIVE NEGATIVE Urine Bilirubin NEGATIVE NEGATIVE Urine Urobilinogen 0.2 < = 1.0 MG/DL Urine Leukocyte Esterase NEGATIVE NEGATIVE Urine RBC (Auto) NEGATIVE NEGATIVE Urine RBC RARE /HPF Urine WBC NONE /HPF Urine Squamous Epithelial Cells 2-5 /HPF Urine Crystals NONE /LPF Urine Bacteria NEGATIVE /HPF Urine Casts NONE /LPF Urine Mucus NEGATIVE /LPF Urine Culture Indicated NO My Orders Orders - MONY MILLER DO Ed Iv/Invasive Line Start (10/30/20 23:19) Monitor-Rhythm Ecg Trace Only (10/30/20 23:19) Amylase (10/30/20 23:19) Cbc With Automated Diff (10/30/20 23:19) Comprehensive Metabolic Panel (10/30/20 23:19) Lipase (10/30/20 23:19) Magnesium (10/30/20 23:19) Ua Culture If Indicated (10/30/20 23:19) Ed Iv/Invasive Line Start (10/30/20 23:19) Lactated Ringers (Lr 1000 Ml Iv Solution (10/30/20 23:30) Heart Tones (10/30/20 23:19) Acetaminophen Tablet (Tylenol Tablet) (10/31/20 00:45) Ed Iv/Invasive Line Start (10/31/20 00:35) Lactated Ringers (Lr 1000 Ml Iv Solution (10/31/20 00:45) Medications Given in ED Vital Signs/I&O 10/30/20 10/31/20 23:11 01:18 Temp 36.5 36.5 Pulse 93 81 Resp 18 16 B/P (MAP) 109/65 (80) 109/65 (80) Pulse Ox 98 98 O2 Delivery Room Air Room Air Capillary Refill : Progress Note : Progress Note GIVEN TYLENOL AND IV FLUIDS PT STATES HEADACHE IS GONE AFTER 1 LITER OF FLUIDS AND TYLENOL, AND THAT ABDOMI NAL PAIN /CRAMPING IS BETTER AND IS HAVING INCREASED MOVEMENT 0100--PT DECLINES A SECOND LITER OF FLUIDS, AND STATES SHE FEELS MUCH BETTER, AND HAS NO HEADACHE AND NO LONGER HAS ABDOMINAL PAIN OR CRAMPING--HAS COMPLETELY RESOLVED. PT WANTS TO GO HOME. VITAL STABLE Departure Impression Primary Impression: RIGHT SIDED ABDOMINAL PAIN IN SECOND TRIMESTER Additional Impressions: headache in second trimester Mild dehydration Disposition: 01 HOME, SELF-CARE Condition: Improved Departure-Patient Inst. Decision time for Depature: 01:00 Referrals: [facility] (PCP/Family) Primary Care Physician Patient Instructions: Headache, Adult ED, Stomach Pain in Early Add. Discharge Instructions: LOTS OF CLEAR LIQUIDS--WATER, BROTH, JELLO, GATORADE--DRINK ENOUGH SO YOU ARE URINATING EVERY 2-3 HOURS WHILE AWAKE TYLENOL 1000 MG EVERY 6 HOURS NEEDED FOR PAIN FOLLOW UP WITH DR. ODONNELL ON SUNDAY IF SYMPTOMS PERSIST, RETURN TO ER IF WORSE All discharge instructions reviewed with patient and/or family. Voiced understanding. MONY MILLER DO Oct 31, 2020 01:06
[2020-10-31 01:18] VITALS: BP 109/65
== END 2020-10-31 01:18 | disposition home or self-care (01) ==
LOC: EDUNIT# 23:00 → ER 23:01
DX: O26.892 Other specified pregnancy related conditions, second trimester (principal); R10.84 Generalized abdominal pain; R51.9 Headache, unspecified; E86.0 Dehydration; F90.9 Attention-deficit hyperactivity disorder, unspecified type; Z3A.18 18 weeks gestation of pregnancy; Z79.52 Long term (current) use of systemic steroids; Z79.899 Other long term (current) drug therapy
CPT/HCPCS: 36415; 80053; 81000; 82150; 83690; 83735; 85025; 93041; 96360

== ENCOUNTER → 2020-11-17 | Outpatient (CLI) | payer BC, MEDICARE ==
--- NOTE | 2020-11-17 13:50 | Diagnostic Imaging Report ---
INDICATION: Twin gestations. The data listed below is for baby B. See separate dictation for full description. Biometrical measurements are as follows: Biparietal 4.99 cm, age 21 weeks 1 days. Head circumference 18.71 cm, age 21 weeks 1 days. Abdominal circumference 15.48 cm, age 20 weeks 5 days. Femur length 3.23 cm, age 20 weeks 1 days. Sonographic estimate age: 20 weeks 6 days. Sonographic estimated date of delivery: 03/31/2021. Estimated Weight: 356 gm (+/- 52 gm). LMP percentile: 48%. heart rate: 160 beats per minute. number: 2 of 2. IMPRESSION: Twin intrauterine gestations. See separate dictation for full details of the study. Dictated by: Dictated on workstation # [id number]
--- NOTE | 2020-11-17 13:54 | Diagnostic Imaging Report ---
INDICATION: Twin gestations, survey. TECHNIQUE: Multiple real-time grayscale images were obtained over the gravid uterus. COMPARISON: None. FINDINGS: There are twin intrauterine gestations. Both twins measured 20 weeks 6 days in size by composite measurements. Twin A is on the left and in cephalic presentation. Twin A shows low-lying placenta, within 2 cm of the internal os. Twin A shows heart rate of 163 BPM. Amniotic fluid was normal for twin A. survey for twin A demonstrated normal-appearing kidneys and bladder and stomach. Normal-appearing intracranial ventricles are seen. Normal-appearing four-chamber heart view was seen. Three-vessel cord was seen but cord insertion was not well visualized for twin A. spine appeared normal for twin A. Twin B demonstrated breech presentation. Twin B showed heart rate of 160 BPM. There is no placenta previa for twin B. Placenta is to the right side and fundal. Amniotic fluid for twin B was normal. survey for twin B demonstrates normal-appearing kidneys and bladder and stomach and intracranial ventricles. Three-vessel cord and cord insertion were normal for twin B. spine was normal for twin B. Four-chamber heart view was not well seen for twin B. Maternal adnexa could not be well visualized. Cervical length is 4.1 cm. The data listed below is for baby A. Biometrical measurements are as follows: Biparietal 5.06 cm, age 21 weeks 3 days. Head circumference 17.86 cm, age 20 weeks 3 days. Abdominal circumference 14.91 cm, age 20 weeks 2 days. Femur length 3.42 cm, age 20 weeks 6 days. Sonographic estimate age: 20 weeks 6 days. Sonographic estimated date of delivery: 03/31/2021. Estimated Weight: 355 gm (+/- 52 gm). LMP percentile: 47%. heart rate: 163 beats per minute. number: 1 of 2. IMPRESSION: Twin live intrauterine gestations measuring 20 weeks 6 days for each by composite measurements. Twin A is in cephalic presentation. Twin B is in breech presentation at this time. The placenta is somewhat low lying for twin A, consider follow-up as clinically warranted. survey showed no detectable abnormalities, although the cord insertion was not well seen for twin A, the four-chamber heart view was suboptimal for twin B. Consider follow-up, as clinically warranted. Dictated by: Dictated on workstation # [id number]
== END ==
LOC: RAD 12:00
PROVIDERS: ATTEND Nurse Practitioner Women's Health
DX: O30.042 Twin pregnancy, dichorionic/diamniotic, second trimester (principal); Z3A.20 20 weeks gestation of pregnancy
CPT/HCPCS: 76805; 76810

== ENCOUNTER 2020-11-28 12:23 | Emergency (ER) | payer BC ==
[~2020-11-28] VITALS: Ht 157.4 cm; Wt 74.8 kg
[~2020-11-28 12:23] MED LIST changes: -SULF1TAB35 PO; +SULF1TAB38 PO
[2020-11-28 12:35] VITALS: BP 130/86
--- NOTE | 2020-11-28 12:41 | ED General ---
General Stated Complaint: DIAHRREA, SORE THROAT Source of Information: Patient Exam Limitations: No Limitations History of Present Illness Date Seen by Provider: Nov 28, 2020 Time Seen by Provider: 12:41 Initial Comments To ER with a sore throat this morning, diarrhea yesterday. One of her coworkers tested positive for Covid and she was concerned that she may have it as well. Timing/Duration: 1-2 Days Severity: Moderate Associated Systoms: Denies Symptoms Allergies and Home Medications Allergies Coded Allergies: Penicillins (Unverified Adverse Reaction, Mild, RASH, VOMITING, 11/28/09) Home Medications Fluticasone Propionate 9.9 Ml [place].susp, 2 SPRAYS NS BID Prescribed by: MONY MILLER on 05/15/17818 Guanfacine Hcl 3 Mg Tab.sr.24h, 3 PO DAILY, (Reported) Ibuprofen 800 Mg Tab, 600 MG PO Q8HR PRN Prescribed by: GIANNA AKHTAR on 05/30/12 182 Lisdexamfetamine Dimesylate 70 Mg Capsule, 70 PO DAILY, (Reported) Loratadine/Pseudoephedrine 1 Each Tab.er.12h, 1 EACH PO BID Prescribed by: MONY MILLER on 05/15/17818 Metronidazole 500 Mg Tablet, 500 MG PO BID Prescribed by: DENISHA COVARRUBIAS on 08/14/20 1725 Metronidazole 500 Mg Tablet, 500 MG PO BID Prescribed by: BRANDIE VILA on 09/14/202058 Prednisone 10 Mg Tab, 40 MG PO DAILY Prescribed by: MONY MILLER on 10/20/16 0048 Prednisone 20 Mg Tab, 40 MG PO DAILY Prescribed by: DENISHA COVARRUBIAS on 12/09/18 1748 [Trinessa] , DAILY, (Reported) Patient Home Medication List Home Medication List Reviewed: Yes Review of Systems Review of Systems Constitutional: see HPI EENTM: see HPI Respiratory: no symptoms reported Cardiovascular: no symptoms reported Genitourinary: no symptoms reported Musculoskeletal: no symptoms reported Skin: no symptoms reported Psychiatric/Neurological: No Symptoms Reported Hematologic/Lymphatic: No Symptoms Reported Immunological/Allergic: no symptoms reported Past Eyopjtz-Elwgwp-Zulsth Hx Immunizations Up To Date Tetanus Booster (TDap): Less than 5yrs PED Vaccines UTD: Yes Seasonal Allergies Seasonal Allergies: No Past Medical History Surgeries: No Respiratory: No Cardiac: Yes High Cholesterol Neurological: Yes Headaches /Migraines Female Reproductive Disorders: Denies Genitourinary: No Gastrointestinal: No Musculoskeletal: No Endocrine: No HEENT: No Cancer: No Psychosocial: Yes ADD/ADHD, Anxiety, Bipolar, Depression Integumentary: No Blood Disorders: No Family Medical History No Pertinent Family Hx Physical Exam Vital Signs Vital Signs - First Documented 11/28/20 12:35 Temp 36.8 Pulse 84 Resp 20 B/P (MAP) 130/86 (101) Pulse Ox 99 Capillary Refill : Height, Weight, BMI Height: 5'3.00" Weight: 145lbs. oz. 65.177934hp; 29.00 BMI Method:Stated General Appearance: No Apparent Distress, WD/WN Eyes: Bilateral Eye Normal Inspection, Bilateral Eye PERRL, Bilateral Eye EOMI Neck: Full Range of Motion, Normal Inspection Respiratory: No Accessory Muscle Use, No Respiratory Distress Cardiovascular: Regular Rate, Rhythm, Normal Peripheral Pulses Gastrointestinal: Normal Bowel Sounds, Non Tender, Soft Extremity: Normal Capillary Refill, Normal Inspection Neurologic/Psychiatric: Alert, Oriented x3 Skin: Normal Color, Warm/Dry Progress/Results/Core Measures Suspected Sepsis SIRS Temperature: Pulse: Respiratory Rate: Blood Pressure / Mean: Results/Orders Lab Results Laboratory Tests Test 11/28/20 12:40 Range/Units Influenza Type A (RT-PCR) Not Detected Not Detecte Influenza Type B (RT-PCR) Not Detected Not Detecte SARS-CoV-2 RNA (RT-PCR) Not Detected Not Detecte My Orders Orders - MARIA TERESA GURROLA APRN Covid 19 Inhouse Test (11/28/20 12:29) Influenza A And B By Pcr (11/28/20 12:29) Vital Signs/I&O 11/28/20 12:35 Temp 36.8 Pulse 84 Resp 20 B/P (MAP) 130/86 (101) Pulse Ox 99 Capillary Refill : Departure Impression Primary Impression: Viral syndrome Disposition: 01 HOME, SELF-CARE Condition: Stable Departure-Patient Inst. Decision time for Depature: 13:47 Referrals: [facility] (PCP/Family) Primary Care Physician Patient Instructions: Viral Syndrome (DC) Add. Discharge Instructions: 1. Return to ER for any concerns 2. Follow-up with your doctor next week 3. MARIA TERESA GURROLA APRN Nov 28, 2020 12:41
== END 2020-11-28 13:51 | disposition home or self-care (01) ==
LOC: EDUNIT# 12:23 → ER 12:24
DX: B34.9 Viral infection, unspecified (principal); F90.9 Attention-deficit hyperactivity disorder, unspecified type; Z20.822 Contact with and (suspected) exposure to COVID-19; Z79.52 Long term (current) use of systemic steroids
CPT/HCPCS: 87636; 99282

== ENCOUNTER 2021-01-22 14:21 | Outpatient (CLI) | payer BC ==
[~2021-01-22] VITALS: Ht 157 cm; Wt 76.6 kg
[2021-01-22 15:00] VITALS: BP 119/72
[2021-01-22] MEDS ORDERED: FOLI20CA PO (15:02)
[2021-01-22] MEDS ORDERED: PREN-37 PO (15:02)
[2021-01-22] MEDS ORDERED: FERR-84 PO (15:02)
[2021-01-22] MEDS ORDERED: FAMO-119 PO (15:02)
[2021-01-22 15:10] VITALS: BP 119/72
[2021-01-22 15:25] LABS: BILIRUBIN,URINE NEGATIVE (NEGATIVE); CLARITY,URINE CLEAR; COLOR,URINE YELLOW; GLUCOSE, URINE (UA) NEGATIVE (NEGATIVE); KETONES,URINE NEGATIVE (NEGATIVE); LEUKOCYTE ESTERASE ,URINE NEGATIVE (NEGATIVE); NITRITE,URINE NEGATIVE (NEGATIVE); PROTEIN,URINE NEGATIVE (NEGATIVE)
[2021-01-22 15:36] LABS: BACTERIA,URINE FEW /HPF
[2021-01-22] MEDS ORDERED: [UNRECOGNIZED DRUG - CODE] VG (16:19)
[2021-01-22 16:35] VITALS: BP 119/72
--- NOTE | 2021-01-25 08:37 | Physician Query-Final Dx ---
Clinic Account Progress/Dx Physician Query: Please give diagnosis Please include # weeks gestation Date of Service Jan 22, 2021 at 14:21 ANDRAE FLETCHER Jan 25, 2021 08:37
== END 2021-01-22 16:35 | disposition home or self-care (01) ==
LOC: WSo 14:21 → LDRP 14:21 → WSo 16:35
PROVIDERS: ATTEND Obstetrics & Gynecology
DX: O26.893 Other specified pregnancy related conditions, third trimester (principal); R10.9 Unspecified abdominal pain; Z3A.30 30 weeks gestation of pregnancy
CPT/HCPCS: 81000; 99213

== ENCOUNTER 2021-02-12 02:14 | Outpatient (CLI) | payer BC, MEDICAID ==
[~2021-02-12] VITALS: Ht 157.5 cm; Wt 80.1 kg
[~2021-02-12 02:14] MED LIST changes: +FAMO-119 PO; +FERR-84 PO; +FOLI20CA PO; +PREN-37 PO; +[UNRECOGNIZED DRUG - CODE] VG
--- NOTE | 2021-02-12 03:01 | History & Physical-OB ---
OB - Chief Complaint & HPI Date/Time Date of Admission: Date of Admission: Date seen by a Provider: Feb 12, 2021 Time Seen by a Provider: 02:40 Chief Complaint/History OB-Reason for Admission/Chief: premature rupture of membranes twin Hx : 1 Hx Para: 0 Hx Last Menstrual Period: 06/27/20 Expected Date of Delivery: Apr 03, 2021 Gestational Age in Weeks: 32 Gestational Age in Days: 0 Admission Nurse Assessment Rev: Yes History of Labs labs were unable to be located. Patient transferred care in first trimester from [facility]. Other DI DI twin of Dr. Cummins who presented with grossly ruptured membranes. She is not in labor Cervix 1 cm with gross rupture. Occasional contractions noted on monitor but patient is not feeling these. PMH - uncomplicated Soc/hx - PCN allergy Allergies and Home Medications Allergies Coded Allergies: Penicillins (Unverified Adverse Reaction, Mild, RASH, VOMITING, 11/28/09) Patient Home Medication List Home Medication List Reviewed: Yes Famotidine (Pepcid) Unknown Strength Tablet, Unknown Dose PO DAILY, (Reported) Entered as Reported by: KALEIGH MI on 01/22/21 1502 Ferrous Sulfate (Iron) 325 Mg Tablet, PO TID, (Reported) Entered as Reported by: KALEIGH MI on 01/22/21 1502 Folic Acid (Folic Acid) Unknown Strength Capsule, Unknown Dose PO DAILY, (Reported) Entered as Reported by: KALEIGH MI on 01/22/21 1502 Vit/Iron Fumarate/FA ( Tablet) 1 Each Tablet, 1 EACH PO DAILY, (Reported) Entered as Reported by: KALEIGH MI on 01/22/21 1502 Tioconazole (1-Day) 4.6 Gm Oin.pf.ashley, 4.6 GM VG PRN Prescribed by: KALEIGH MI on 01/22/21 1619 OB - History Hx of Present Ultrasounds: Normal mid trimester US, Other (twin gestation with normal anatomy) Obstetrical Complications: None Medical Complications: None Information Induced Hypertension: No Maternal Gestational Diabetes: No Hemorrhage: No Obstetrical History Hx : 1 Delivery History Hx Blood Disorders: No Patient Past Medical History NC Social History/Family History Alcohol Use: Denies Use Recreational Drug Use: No Smoking Cessation: Former smoker 2nd Hand Smoke Exposure: No Significant Family Hx Mom with history of stroke after a gunshot Records report "malignant hypertension" Immunizations Tetanus Booster (TDap): Less than 5yrs OB - Admission Exam Physical Exam Vitals: 138/70 Heart: Rhythm Normal Lungs: Clear Abdomen: Gravid Extremities: Normal Reflexes: Normal Cervical Dilatation: 1cm Effacement: 0% Station: Ballotable Membranes: Ruptured Amniotic Fluid: Clear Heart Rate: 130's Accelerations: Accelerations Present Decelerations: No Decelerations Short Term Variability: Present Pie Filler Variability: Average (6-25) Contractions on Admission: >10 Minutes Apart OB - Assessment/Plan/Diagnosis Assessment Assessment: IUP - , rupture of membranes Admission Dx Twin premature rupture of membranes 32 week gestation Admission Status: Observation Plan Plan: Other (PAtient is to be admitted, stabilized, started on MgSO4 for neuroprotection, clindamycin for GBS prophylaxis and given betamethasone 12 mg IM. Any unavailable pn labs will be drawn. ) MARIBEL PORTILLO DO Feb 12, 2021 03:01
[2021-02-12] MEDS ORDERED: VANCOMYCIN 1000 MG/VIAL ONE (03:02)
[2021-02-12] MEDS ORDERED: CLINDAMYCIN 600 MG/50 ML IVPB 50 ML IV ONE ×2 (03:08→03:15)
[2021-02-12] MEDS ORDERED: D5 LR IV SOLUTION 1,000 ML IV ONE (03:14)
[2021-02-12] MEDS ORDERED: BETAMETHASONE ACE/NA PHOS 6 MG/ML (CELESTONE SOLUSPAN) ONE (03:15)
[2021-02-12] MEDS ORDERED: MAGNESIUM SULFATE DRIP 500 ML IV ONE (03:15)
[2021-02-12] MEDS ORDERED: MAGNESIUM 2 GM/50 ML IVPB 50 ML IV ONE (03:15)
[2021-02-12] MEDS ORDERED: CALCIUM GLUC. 10% 4.65 MEQ/10 ML VIAL IV PRN (03:15)
[2021-02-12] MEDS ORDERED: VANCOMYCIN INJECTION 1,000 MG in NS (IVPB) 250 ML IV SCH (03:15)
[2021-02-12] MEDS ORDERED: MAGNESIUM 4 GM/100 ML IVPB 100 ML IV SCH (03:15)
[2021-02-12] MEDS ORDERED: BETAMETHASONE ACE/NA PHOS 6 MG/ML (CELESTONE SOLUSPAN) IM SCH (03:15)
[2021-02-12] MEDS ORDERED: D5 LR IV SOLUTION 1,000 ML IV SCH (03:15)
[2021-02-12 03:21] LABS: BASOPHILS % (AUTO) 0 % (0-10); EOSINOPHILS # (AUTO) 0.2 10^3/uL (0.0-0.3); EOSINOPHILS % (AUTO) 1 % (0-10); HEMATOCRIT 36 % (35-52); LYMPHOCYTES # (AUTO) 2.4 10^3/uL (1.0-4.0); LYMPHOCYTES % (AUTO) 15 % (12-44); MEAN CORPUSCULAR HEMOGLOBIN 30 pg (25-34); MEAN CORPUSCULAR HGB CONC 33 g/dL (32-36); MEAN CORPUSCULAR VOLUME 88 fL (80-99); MEAN PLATELET VOLUME 12.2 fL (9.0-12.2); MONOCYTES # (AUTO) 1.6 10^3/uL (0.0-1.0); MONOCYTES % (AUTO) 11 % (0-12); NEUTROPHILS % (AUTO) 71 % (42-75); PLATELET COUNT 172 10^3/uL (130-400); WHITE BLOOD COUNT 15.4 10^3/uL (4.3-11.0)
[2021-02-12] MEDS ORDERED: MAGNESIUM SULFATE DRIP 500 ML IV SCH (03:45)
[2021-02-12 04:18] LABS: LYMPHOCYTES % (MANUAL) 15 %; MONOCYTES % (MANUAL) 5 %; NEUTROPHILS % (MANUAL) 75 %
[2021-02-12 04:19] LABS: ATYPICAL LYMPHOCYTES 3 %; EOSINOPHILS % (MANUAL) 1 %; METAMYELOCYTES % 1 %; RBC MORPH NORMAL
[2021-02-12 05:30] VITALS: BP 130/83
[2021-02-12 06:07] VITALS: BP 130/83
== END 2021-02-12 05:00 | disposition short-term general hospital (02) ==
LOC: WSo 02:14 → LDRP 02:16 → WSo 05:00
PROVIDERS: ATTEND Obstetrics & Gynecology
DX: O42.913 Preterm premature rupture of membranes, unspecified as to length of time between rupture and onset of labor, third trimester (principal); Z3A.32 32 weeks gestation of pregnancy
CPT/HCPCS: 85007; 85027; 86703; 86762; 86780; 86850; 86900; 86901; 96372; 96374; 96375; 96376; G0463; G0499; 36415; 86706; 99214